=== PATIENT | male | born 1940 | race Caucasian/White ===

== ENCOUNTER → 2018-08-15 09:56 | Outpatient (CLI) | payer MEDICARE, OTHER, SELFPAY ==
--- NOTE | 2018-08-15 10:00 | RAD_ITS ---
STUDY: X-RAY - LEFT KNEE REASON FOR EXAM: Male, 78 years old. One-week history of left knee pain. No known injury. TECHNIQUE: 4 view(s) of the knee. COMPARISON: None. FINDINGS: Normal visualized distal femur. Normal visualized proximal tibia and fibula. Normal proximal tibiofibular articulation. There is mild degenerative arthrosis of the medial femorotibial compartment. Normal lateral femorotibial compartment. There is moderate degenerative arthrosis of the patellofemoral articulation. 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 Small joint effusion. RAD/Knee 4 or More Views IMPRESSION: Degenerative arthrosis. Small joint effusion. Calcification of the medial and lateral menisci. Electronically Signed: Willem Valles MD at 10:56 EDT Tel [phone], Service support ,
== END ==
PROVIDERS: Family Provider Family Medicine; PCP Family Medicine; Referring Provider Physician Assistant; Visit Provider Physician Assistant
DX: M17.12 Unilateral primary osteoarthritis, left knee (principal)
CPT/HCPCS: 73564

== ENCOUNTER → 2019-04-29 17:48 | Outpatient (CLI) | payer MEDICARE, OTHER, SELFPAY ==
--- NOTE | 2019-04-29 17:55 | CT_ITS ---
STUDY: CT ABDOMEN AND PELVIS WITH AND WITHOUT CONTRAST REASON FOR EXAM: Male, 78 years old. Enlarged testicle. RADIATION DOSAGE (If Supplied By Facility): CTDIvol = ( 25.99 ) mGy, DLP = ( 3465.52 ) mGycm TECHNIQUE: Transaxial images were obtained from the dome of the diaphragm to the symphysis pubis without oral contrast. 100ML IV Isovue 300 was administered. Sagittal and coronal images were reconstructed. Individualized dose optimization techniques were used for this CT. COMPARISON: None. FINDINGS: The visualized lung bases are unremarkable. The visualized portions of the heart are within normal limits. There is decreased attenuation of the liver consistent with steatosis. Normal gallbladder and extrahepatic biliary system. Normal spleen. Normal pancreas. Normal bilateral adrenal glands. Multiple bilateral nonobstructing renal stones. No hydronephrosis, ureteral stone, or ureteral dilatation. Normal visualized stomach. Normal small intestine. Normal colon. The appendix is visualized and appears normal. There is diffuse atherosclerotic calcification of the abdominal aorta, without a demonstrated aneurysm. Normal inferior vena cava. Normal retroperitoneum. Normal urinary bladder. Normal abdominal wall. There are diffuse degenerative changes of the visualized lumbar spine. CT/CT Abd/Pelvis W/WO Contrast IMPRESSION: 1. Bilateral nonobstructing renal stones. 2. Fatty infiltration of the liver. Electronically Signed: Evangelista De Los Santos MD at 10:18 EDT Tel , Service support ,
[2019-04-29 18:15] LABS: CREATININE FINGERSTICK 1.4 mg/dL (0.70-1.30)
== END ==
PROVIDERS: Family Provider Family Medicine; PCP Family Medicine; Referring Provider Nurse Practitioner Adult Health; Visit Provider Nurse Practitioner Adult Health
DX: R31.29 Other microscopic hematuria (principal); Z87.442 Personal history of urinary calculi
CPT/HCPCS: 74178; Q9967

== ENCOUNTER 2019-06-04 05:57 | Day surgery (SDC) | payer MEDICARE, OTHER, SELFPAY ==
--- NOTE | 2019-06-04 05:45 | RAD_ITS ---
STUDY: X-RAY - ABDOMEN/PELVIS REASON FOR EXAM: Male, 79 years old. Pre-ESWL TECHNIQUE: 2 views COMPARISON: CT study of April 29, 2019 FINDINGS: Multiple calculi projecting over the left kidney. The largest is 1.0 cm. No calcifications are seen projecting over the right kidney. There are degenerative changes involving the lower thoracic and lumbosacral spines. There is no bowel distention or free intraperitoneal. A few phleboliths in the pelvis.. RAD/Abdomen Single View IMPRESSION: Multiple calculi in the left kidney. Electronically Signed: Hema Reyes MD at 7:24 EDT Tel , Service support ,
[2019-06-04 07:00] VITALS: BP 150/71; PULSE 55; RESP 16; TEMP 37.2; O2SAT 97; BMI 28.3
--- NOTE | 2019-06-04 07:20 | DCINST_ITS ---
Discharge Diet: Light diet - advance as tolerated Discharge Activity: Return to Normal Activity Call your doctor if your incision/area has: Sudden Increased Bleeding Call your doctor if you observe: Fever of 101 or Higher Suture Line Care: Avoid Pulling/Pushing, Avoid Pinching/Bending Instructions: Shock Wave Lithotripsy Allergies/Adverse Reactions: Allergies No Known Allergies Allergy (Verified 05/23/19 08:31) Medications to take at Discharge Aspirin [Aspirin, Baby] 81 mg PO DAILY@0800 08/05/14 Multivitamins,Therapeutic [Multivitamin] 1 tab PO DAILY 08/05/14 Ciprofloxacin [Cipro] 500 mg PO BID #6 tab 06/04/19 Hydrocodone/Acetaminophen [[place] 5-325 Tablet] 1 ea PO Q6H PRN PRN #20 tab 06/04/19 The following prescriptions were given: Ciprofloxacin [Cipro] 500 mg PO BID #6 tab Prescription Printed Hydrocodone/Acetaminophen [[place] 5-325 Tablet] 1 ea PO Q6H PRN PRN #20 tab PRN Reason: Pain Prescription Printed Primary Care Physician: Luciano Jaimes MD [Primary Care Provider] - Test Results: Test results from this visit will be discussed in further detail at your follow- up appointment, if applicable. Please Follow Up With: Geovanny Wright MD When: please call to make an appointment.
[2019-06-04] MEDS: Cefazolin 2 GM in 0.9% Normal Saline 100 ML IV (07:24)
--- NOTE | 2019-06-04 08:21 | OP.PCM_ITS ---
Report of Operation Date of Procedure: 06/04/19 Pre-Operative Diagnosis: Left renal calculi multiple and large 1 cm and 8 mm Post-Operative Diagnosis: Same, stone was 1200 Hounsfield units Surgery/Procedure Performed:: Cystoscopy and left stent placement, left extracorporeal shockwave lithotripsy Description of Surgical Findings:: 74-year-old male who was found to have 2 large stones in the left kidney measuring 1 cm in size and 8 mm in size. Hematuria work-up confirmed the stones were plan to do a cystoscopy today and place a stent and treat these 2 large stones. Procedure note patient was taken back to the operating room #3, he underwent general anesthesia with an LMA. With Dr Rodriguez is anesthesiologist, he was placed supine on the table, we then placed him in dorsolithotomy position, went into the bladder with a 21 Sinhala rigid cystourethroscope, entire length of the urethra was normal, the membranous urethra was normal pendulous urethra is normal bulbar urethra is normal sphincter was intact prostate verumontanum was identified, he had bilateral hypertrophy, went into the bladder no tumors or stones were seen within the bladder. It left and right ureter orifice were normal ladders nice and smooth normal new mucosa. I then identified the left ureteral orifice and cannulated this with a Glidewire, it was a 0.038 Glidewire which advanced up into the left kidney. Once a wire was in place then under fluoroscopic guidance I advanced a 6 Sinhala by 26 cm stent this is a [employer] stent. Left the string on the stent for extraction later on. Once a stent was a good position I pulled the wire from the middle of the stent the stent coiled in the kidney and in the bladder in good position we left the string hanging out the urethra for easy extraction after the procedure next week. We then repositioned the table and the patient we found the 2 stones in the left kidney. We started with shockwave lithotripsy. Started slowly at a rate of 90 shocks per minute and observed and monitored there is shockwave with lithotripsy during the treatment. We increased the power from 3 kV to 5 and then finally at the 7 kV. We continued with shockwave therapy the stone started fracturing very nicely under fluoroscopy made sure that we are in the F2 focal point during the entire treatment made sure that we angled shockwave machine we did displace the patient laterally with a weight to push the kidney closer to the machine and continued with shockwave treatments. At the end of the treatment cycle we completed 3000 shockwaves to the stone and cause significant fragmentation of the stone. Under fluoroscopy could see multiple small fragments. Appeared to be a very good fragmentations always possible he may need another treatment. At this point the anesthesia was reversed he was extubated taken back to the PACU in good condition he will follow-up in the office next week with an x-ray and will remove the stent if the fragmentations cleared. Type of Anesthesia:: General Drains: stent - Admit VTE Documentation VTE Present on Admission: No VTE Mechan Device Prophylaxis: SCD's
[2019-06-04 08:30] VITALS: BP 150/71; BP 162/91; PULSE 46; RESP 17; TEMP 36.2; O2SAT 99
[2019-06-04 08:45] VITALS: BP 150/71; BP 153/84; PULSE 52; RESP 16; O2SAT 98
[2019-06-04 09:02] VITALS: BP 150/71; BP 156/83; PULSE 61; RESP 18; TEMP 36.5; O2SAT 99
[2019-06-04 10:01] VITALS: BP 150/71; BP 157/85; PULSE 82; RESP 16; TEMP 36.3; O2SAT 99
== END 2019-06-04 10:09 | disposition home or self-care (01) ==
LOC: SDC 05:58 → AC 06:00
PROVIDERS: Family Provider Family Medicine; PCP Family Medicine; Visit Provider Urology
PROC: (CPT 50590; principal; 2019-06-04 07:20)
DX: N20.0 Calculus of kidney (principal); Z79.82 Long term (current) use of aspirin; Z87.442 Personal history of urinary calculi
CPT/HCPCS: 00873; 50590; 52332; 74018; J7120; C1769; J2405

== ENCOUNTER → 2019-06-10 08:36 | Outpatient (CLI) | payer MEDICARE, OTHER, SELFPAY ==
[2019-06-04 07:00] VITALS: BMI 28.3
--- NOTE | 2019-06-10 08:45 | RAD_ITS ---
STUDY: X-RAY - ABDOMEN/PELVIS REASON FOR EXAM: Male, 79 years old. Flank pain, history of stones TECHNIQUE: 2 AP views COMPARISON: 06/04/2019 FINDINGS: Since the previous study, patient has undergone placement of a left-sided JJ stent. Stent appears in satisfactory position. I suspect also that the patient has undergone lithotripsy as the previously noted left renal stones have changed in shape and size consistent with that procedure. No clearly demonstrated calcifications are noted along the course of the stent. No calcifications overlying the right renal shadow, lucent centered phleboliths in the pelvis are unchanged. Bony structures show degenerative change. RAD/Abdomen Single View IMPRESSION: Previously noted calcifications in the mid and lower pole of the left kidney unchanged in size and shape consistent with recent lithotripsy. Left-sided JJ stent has been placed since the previous study and appears in satisfactory position No clearly demonstrated calcifications along the course of the stent Degenerative bony changes Electronically Signed: Ryder Delcid MD at 9:26 EDT , Service support ,
== END ==
PROVIDERS: Family Provider Family Medicine; PCP Family Medicine; Referring Provider Urology; Visit Provider Urology
DX: N20.0 Calculus of kidney (principal)
CPT/HCPCS: 74018

== ENCOUNTER 2019-06-27 12:26 | Day surgery (SDC) | payer MEDICARE, OTHER, SELFPAY ==
[2019-06-27 12:39] VITALS: BP 150/75; PULSE 59; RESP 16; TEMP 37.1; O2SAT 96; BMI 28.0
[2019-06-27] MEDS: Cefazolin 2 GM in 0.9% Normal Saline 100 ML IV (15:32)
[2019-06-27] MEDS: Lactated Ringers 1,000 ML 75 ML IV (15:35)
--- NOTE | 2019-06-27 15:36 | DCINST_ITS ---
Discharge Diet: Light diet - advance as tolerated Discharge Activity: Return to Normal Activity, May not drive while taking narcotic pain medications. Call your doctor if your incision/area has: Continuous Slow Oozing, Sudden Increased Bleeding Call your doctor if you observe: Fever of 101 or Higher Suture Line Care: Avoid Pulling/Pushing, Avoid Pinching/Bending Allergies/Adverse Reactions: Allergies No Known Allergies Allergy (Verified 06/27/19 12:36) Medications to take at Discharge NK 06/16/19 Primary Care Physician: Luciano Jaimes MD [Primary Care Provider] - Test Results: Test results from this visit will be discussed in further detail at your follow- up appointment, if applicable. Please Follow Up With: Geovanny Wright MD When: in 2 weeks, please call to make an appointment.
--- NOTE | 2019-06-27 16:23 | PCM.OPRPT ---
Report of Operation Date of Procedure: 06/27/19 Pre-Operative Diagnosis: Left kidney stone status post first stage ESWL Post-Operative Diagnosis: Same Surgery/Procedure Performed:: Left extracorporeal shockwave lithotripsy second stage treatment Description of Surgical Findings:: 79-year-old male taken back to the operating room after smooth induction of anesthesia he was placed supine on the lithotripsy table, the patient was then placed supine on the table we brought in the lithotripter machine and identified the fragments of stone in the left kidney and then proceeded with shockwave lithotripsy a total of 3000 shockwaves were delivered to the stones under fluoroscopic guidance taken to the F2 focal point was at the stones during the entire treatment. We used from 5 to 7 kV rate of 90. After the treatment cycle was completed fragmentation appeared successful and the patient anesthetic to being reversed plan to see him back in a few weeks with a KUB to evaluate the effectiveness of the treatment. Type of Anesthesia:: General - Admit VTE Documentation VTE Present on Admission: No VTE Mechan Device Prophylaxis: SCD's
[2019-06-27 16:32] VITALS: BP 148/75; BP 150/75; PULSE 55; RESP 14; TEMP 36.1; O2SAT 97
[2019-06-27 16:45] VITALS: BP 150/75; BP 169/80; PULSE 55; RESP 16; O2SAT 99
[2019-06-27 17:02] VITALS: BP 150/75; BP 165/81; PULSE 56; RESP 12; O2SAT 100
[2019-06-27 17:05] VITALS: BP 150/75; BP 165/87; PULSE 57; RESP 14; TEMP 36.2; O2SAT 97
[2019-06-27 18:04] VITALS: BP 150/75; BP 160/91; PULSE 65; RESP 18; TEMP 36.9; O2SAT 98
== END 2019-06-27 18:06 | disposition home or self-care (01) ==
LOC: SDC 12:27 → AC 12:29
PROVIDERS: Family Provider Family Medicine; PCP Family Medicine; Referring Provider Urology; Visit Provider Urology
PROC: (CPT 50590; principal; 2019-06-27 14:00)
DX: N20.0 Calculus of kidney (principal); Z87.442 Personal history of urinary calculi
CPT/HCPCS: 50590; J7120; J2405

== ENCOUNTER → 2019-07-17 08:25 | Outpatient (CLI) | payer MEDICARE, OTHER, SELFPAY ==
[2019-06-27 12:39] VITALS: BMI 28.0
--- NOTE | 2019-07-17 08:31 | RAD_ITS ---
STUDY: X-RAY - ABDOMEN/PELVIS REASON FOR EXAM: Male, 79 years old. Left kidney stones TECHNIQUE: Two AP supine views of the abdomen and pelvis. COMPARISON: Previous study of 06/10/2019 FINDINGS: Normal visualized lung bases. There is an unremarkable bowel gas pattern. There is no demonstrated free abdominal air. There is a 2 mm calcification overlying the lower pole left kidney which may represent nephrolithiasis. Bilateral pelvic phleboliths are noted. No additional abnormal intra-abdominal or intrapelvic calcifications are noted. There has been interval removal of a left ureteral stent. Normal soft tissue structures. There are degenerative changes of the visualized thoracolumbar spine. RAD/Abdomen Single View IMPRESSION: 2 mm calcification overlying the lower pole of left kidney which may represent nephrolithiasis. Bilateral pelvic phleboliths. Interval removal of left ureteral stent seen on the previous study. Degenerative changes of the visualized thoracolumbar spine. Electronically Signed: Adam George MD at 16:55 EDT , Service support ,
[2019-07-17 10:57] LABS: Creatinine, Serum 1.15 mg/dL (0.70-1.30); EST Glomerular Filtration Rate 66 mL/min (>60); Est Glom Filt Rate - Afr Amer 79 mL/min (>60)
== END ==
LOC: RAD.FUTURE 08:26 → RAD 09:16
PROVIDERS: Family Provider Family Medicine; PCP Family Medicine; Referring Provider Urology; Visit Provider Urology
DX: N20.0 Calculus of kidney (principal)
CPT/HCPCS: 36415; 74018; 82565

== ENCOUNTER → 2020-06-22 08:16 | Outpatient (CLI) | payer MEDICARE, OTHER, SELFPAY ==
[2020-06-17 08:47] VITALS: BMI 28.0
--- NOTE | 2020-06-22 08:16 | CT_ITS ---
STUDY: CT ABDOMEN AND PELVIS WITH CONTRAST REASON FOR EXAM: Male, 80 years old. UMBILICAL PAIN X 6 WEEKS, POSSIBLE HERNIA, HX [place] RADIATION DOSAGE (If Supplied By Facility): CTDIvol = ( 14.69 ) mGy, DLP = ( 1224.78 ) mGycm TECHNIQUE: Transaxial images were obtained from the dome of the diaphragm to the symphysis pubis with oral contrast. Oral and amp;amp; IV Readi-CAT and amp;amp; 100mL Isovue-300 was administered. Sagittal and coronal images were reconstructed. Individualized dose optimization techniques were used for this CT. COMPARISON: Comparison is made with prior study dated 04/29/2019 and 11/27/2011. FINDINGS: Stable small bullous changes at the lung bases. The visualized portions of the heart are within normal limits. Normal liver. Normal gallbladder and extrahepatic biliary system. Normal spleen. Normal pancreas. Normal bilateral adrenal glands. There are multiple bilateral nonobstructing tiny renal calculi. These are unchanged. Normal visualized stomach. Normal small intestine. Normal colon. The appendix is visualized and appears normal. There is diffuse atherosclerotic calcification of the abdominal aorta and the major visceral branches, without a demonstrated aneurysm. Normal inferior vena cava. Normal retroperitoneum. There is diffuse bladder wall thickening although the bladder is not adequately distended. Small bilateral inguinal hernias containing fat more prominent on the left side small umbilical hernia containing fat. There are diffuse degenerative changes of the visualized lumbar spine. CT/Abdomen/Pelvis WITH Contrast IMPRESSION: Stable multiple tiny nonobstructive bilateral intrarenal calculi. Bilateral inguinal hernias containing fat as well as a small umbilical hernia containing fat. Bladder wall thickening although the bladder is not adequately distended. Electronically Signed: Willem Valles, at 9:32 EDT , Service support ,
[2020-06-22 08:31] LABS: CREATININE FINGERSTICK 1.1 mg/dL (0.70-1.30); EGFR FINGERSTICK > 60.0000 mL/min (>60)
== END ==
PROVIDERS: PCP Family Medicine; Referring Provider Surgery; Visit Provider Surgery
DX: R19.00 Intra-abdominal and pelvic swelling, mass and lump, unspecified site (principal)
CPT/HCPCS: 74177; Q9967

== ENCOUNTER 2020-06-25 07:29 | Day surgery (SDC) | payer MEDICARE, OTHER, SELFPAY ==
[2020-06-17 08:47] VITALS: BMI 28.0
[2020-06-25] VITALS (7 sets, daily range): BP systolic 115–165; BP diastolic 62–85; PULSE 50–78; RESP 16; TEMP 36.7–37; O2SAT 97–99; BMI 25.9
--- NOTE | 2020-06-25 | COLBX_PTH ---
PATIENT: JOSÉ MIGUEL RUBIN LOC: EN U#:[id number] AGE/SX: 80/M ROOM: RE06/25/[address]: Dr. Jacques Uribe MD : 1940 BED: DIS: 06/25/2020 SPEC #: [id number] RECD: 06/25/20 09:49 STATUS: DEREK BEKA #: [id number] ALICIA: 06/25/20 00:[address]: Jacques Uribe DEPT: SURGICAL PATHOLOGY RECD BY: Ady Bennett ENTERED: 06/25/20 09:49 SP TYPE: COLON BX OTHR DR: Dr. 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 Fragments of tubular adenoma. See comment. AM:rajan 8/10/20 COMMENT Immunohistochemistry ([id number]) supports the above diagnosis. Case has been reviewed in consultation with Dr. Lazcano who concurs with the above diagnosis. IDC:SJ MICROSCOPIC DESCRIPTION Slides are reviewed. GROSS DESCRIPTION Received in fixative is one container labeled with the patient's name and designated transverse colon biopsy. The specimen consists of multiple irregular fragments of light schaefer soft tissue that in aggregate measure 1.3 x 0.5 x 0.1 cm. The specimen is totally submitted in one cassette. / AM:rg 06/25/20 TC:0 CPT: 87454
--- NOTE | 2020-06-25 07:39 | HP.PCM_ITS ---
Problem List (1) Colonic mass Status: Acute History and Physical Date of Admission: 06/25/20 Intake Vital Signs 06/17/20 Height 6 ft 2 in 06/17/20 Weight: 209 lb 06/17/20 BMI 26.8 06/17/20 BP 147/82 H 06/17/20 Blood Pressure Location Rt brachial 06/17/20 Position Sitting 06/17/20 Respiration 18 06/17/20 Pulse 60 06/17/20 Pulse Source Monitor 06/17/20 Temp 97.8 F 06/17/20 Temp Source Temporal 06/17/20 Pulse Oximetry (%) 98 06/17/20 Oxygen Delivery Method room air Intake Visit Reasons: Ventral hernia Chief Complaint: ventral hernia Handicapped Teacher Required: No Is patient in pain?: No Allergies No Known Allergies Allergy (Verified 06/17/20 08:46) Medications NK 06/16/19 [History Confirmed 06/17/20] PFSH Medical History Nephrolithiasis (Chronic) Abdominal pain (Acute) Ventral hernia (Acute) Surgical History (Updated 06/17/20 @ 08:45 by Brittny Banks) History of lithotripsy (Acute) History of tonsillectomy (Acute) h/o reverse total shoulder (Acute) history ORIF left ankle (Acute) Family History (Updated 06/17/20 @ 08:45 by Brittny Banks) Father Heart disease Colon cancer Social History (Updated 06/17/20 @ 14:[address] Jacques Uribe MD) Smoking Status: Never smoker HPI HPI HPI: JOSÉ MIGUEL RUBIN, is a 80 M who presents to the office today for HPI HPI HPI: JOSÉ MIGUEL RUBIN, is a 80 M who presents to the office today for Abdominal pain. Patient has had pain just above his umbilicus. The patient reports that he does feel bulging on exertion. He is not having any nausea or vomiting. He also reports that his last colonoscopy was approximately 5 years ago and he did have polyps. He has a family history of colon cancer in his father at age 40. ROS General General: Yes weight change; no appetite, fatigue, colon cancer, breast cancer or weakness HEENT HEENT: No difficulty swallowing, eye injury, eye surgery, swollen glands or hoarseness Endo Endocrine: No thyroid disease, diabetes mellitus, thyroid cancer, Hair loss, heat intolerance or cold intolerance Skin Skin: No rash or changing moles Breast Breast: No left breast lump, right breast lump, nipple discharge, breast pain, abnormal mammogram, abnormal US or breast enlargement Musc Musculoskeletal: No back problems, arthritis, rheumatoid arthritis, gout or joint pain Cardio Cardiovascular: No murmur, pacemaker, heart disease, atrial fibrillation, high blood pressure, heart attack, heart stent, palpitations, shortness of breat with exertion or chest pain Psych Psychiatric: Yes depression and anxiety; no hearing voices Resp Respiratory: No shortness of breath, No sleep apnea, No cough, No COPD, No asth ma, No emphysema, No wheezing Gastro Gastrointestinal: Yes abdominal pain, No nausea or vomiting, No diarrhea, No constipation, No blood in stool, No acid reflux, No hemorrhoids, No ulcers, No gallbladder problem, No black,tarry stools Home Hematologic: No blood thinners, No blood disorders, No bleeding, No anemia, No blood clots Neuro Neurologic: No system reviewed and no additional complaints, except as docu, No as per HPI, No abnormal walking, No abnormal hearing, No abnormal movements, No abnormal speech, No behavioral changes, No burning sensations, No confusion, No seizure-like activity, No unsteadiness, No dizziness, No localized weakness, No frequent falls, No headache(s), No lack of coordination, No loss of vision, No memory loss, No numbness, No other visual disturbances, No radiating pain, No restless legs, No sensory deficit, No fainting, No tingling, No tremor(s), No weakness, No other Exam Const General: cooperative Orientation: alert, oriented x3 HENMT Head: normal to inspection Ears: hearing grossly normal bilaterally Eyes General: appearance normal, both eyes and all related structures Visual Alvarado: normal visual alvarado by confrontation Neck Neck: normal visual inspection Chest Chest palpation & inspection: normal inspection of the chest Breast Palpation: No nipple discharge Resp Effort & Inspection: normal respiratory effort Auscultation: clear to auscultation bilaterally Cardio Rate: regular rate Rhythm: regular rhythm Heart Sounds: no murmurs GI Inspection: non-distended Palpation: soft, hernia umbilical, nontender Musc Cervical Spine: normal cervical lordosis, cervical ROM normal Skin General: no rashes or lesions noted Neuro General: alert, oriented x3 Cranial Nerves: CN's II-XI intact bilaterally Cognition: normal cognition Extrem General: normal to inspection, full ROM Psych Appearance: grossly normal Affect: normal affect Assessment & Plan Problems 1. Epigastric mass R19.06 2. Umbilical hernia without obstruction and without gangrene K42.9 Plan The patient does have an umbilical hernia just above his umbilicus. 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 Through his diastases I am able to palpate a firm mass which is mobile. I do not feel a ventral hernia other than his umbilical hernia. I would like to obtain a CT scan to ensure that there is no mass in his abdomen causing his discomfort and bulging. I will see him back after CAT scan to discuss hernia repair. Prior to hernia repair I would like to perform a colonoscopy. The patient is ov erdue as it was 5 or 6 years since his last colonoscopy and he had polyps and a history of colon cancer in his father at age 40. I explained endoscopy in detail to the patient. I explained the risks including but not limited to stroke or heart attack with anesthesia, perforation of the GI tract, bleeding, infection. I explained that any of these could necessitate further emergency surgery. The patient understands and all questions were answered sufficiently. The patient wishes to proceed with procedure. We discussed the current risks associated with COVID-19. While it is understood that there is a community spread of COVID-19, the risk of gabriel COVID-19 while at [facility] ([facility]) is very low; however, the risk cannot be completely mitigated because of the community spread of the disease. We discussed in detail the risk of exposure to and/or potential harm posed by the COVID-19 virus with having a surgery/procedure at this time versus the risk of delaying the surgery/procedure. It is not possible to know either the risk of delaying the surgery or procedure or chance of getting an infection with perfect accuracy, but a joint decision was made to proceed at this time with the scheduled surgery/procedure as indicated on the consent form. Patient was notified that we will need to comply with any screening or testing [facility] wishes to perform or that surgery may be delayed for any positive results. Jacques Uribe MD Pager: [facility] [address] [place] [address] [address] [place] [phone] Office: The patient's CT scan did reveal a possible transverse colon mass. I am performing a colonoscopy today and I will perform biopsies of this area. Patient was informed of the CT scan results. Otherwise there have been no changes since his last exam. Jacques Uribe MD Pager: [facility] [address] [place] [address], [address] [place] [address] Office:
--- NOTE | 2020-06-25 09:05 | OP.COLON_ITS ---
Patient Name: Ed Gandhi Procedure Date: 06/25/2020 8:38 AM Date of : 1940 Age: 80 Procedure: Colonoscopy Indications: Abnormal CT of the GI tract Providers: Jacques Uribe MD Referring MD: Luciano Jaimes MD Medicines: Monitored Anesthesia Care Patient Profile: This is a 80 year old male. Refer to note in patient chart for documentation of history and physical. Last Colonoscopy: 5 years ago. Complications: No immediate complications. Estimated blood loss: Minimal. Procedure: Pre-Anesthesia Assessment: - Prior to the procedure, a History and Physical was performed, and patient medications and allergies were reviewed. The patient's tolerance of previous anesthesia was also reviewed. The risks and benefits of the procedure and the sedation options and risks were discussed with the patient. All questions were answered, and informed consent was obtained. Prior Anticoagulants: The patient has taken no previous anticoagulant or antiplatelet agents. After reviewing the risks and benefits, the patient was deemed in satisfactory condition to undergo the procedure. After I obtained informed consent, the scope was passed under direct vision. Throughout the procedure, the patient's blood pressure, pulse, and oxygen saturations were monitored continuously. The Colonoscope was introduced through the anus and advanced to the cecum, identified by appendiceal orifice and ileocecal valve. The colonoscopy was performed without difficulty. The patient tolerated the procedure well. The quality of the bowel preparation was good. Scope In: 8:49:40 AM Scope Withdrawal Time 0 hours 6 minutes 19 seconds Scope Out: 8:59:53 AM Total Procedure Duration Time 0 hours 10 minutes 13 seconds Findings: A fungating non-obstructing large mass was found in the transverse colon. The mass was circumferential. No bleeding was present. This was biopsied with a cold forceps for histology. The exam was otherwise without abnormality on direct and retroflexion views. 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 Biopsied. - The examination was otherwise normal on direct and retroflexion views. Recommendation: - Discharge patient to home. - Resume previous diet. - Continue present medications. - Await pathology results. - Return to my office in 1 week. - Repeat colonoscopy is recommended. The colonoscopy date will be determined after pathology results from today's exam become available for review. Procedure Code(s): --- Professional --- 75106, Colonoscopy, flexible; with biopsy, single or multiple Diagnosis Code(s): --- Professional --- D49.0, Neoplasm of unspecified behavior of digestive system R93.3, Abnormal findings on diagnostic imaging of other parts of digestive tract CPT copyright 2017 [employer]. All rights reserved. The codes documented in this report are preliminary and upon cigar head puncher review may be revised to meet current compliance requirements. Jacques Uribe MD 06/25/2020 9:05:16 AM This report has been signed electronically. Number of Addenda: 0 Note Initiated On: 06/25/2020 8:38 AM
--- NOTE | 2020-06-25 09:06 | OP.CCLET_ITS ---
06/25/2020 Luciano Jaimes MD [address] [id number] Re : Colonoscopy procedure for Ed Gandhi Dear Dr. Jaimes This procedure was performed on Thursday, June 25, 2020. 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 Biopsied. - The examination was otherwise normal on direct and retroflexion views. Recommendations : - Discharge patient to home. - Resume previous diet. - Continue present medications. - Await pathology results. - Return to my office in 1 week. - Repeat colonoscopy is recommended. The colonoscopy date will be determined after pathology results from today's exam become available for review. My findings are described in the full procedure note, which is enclosed. If I can be of further assistance, please feel free to contact me at Doctor phone number(s): , Work: . Sincerely, Jacques Uribe MD 06/25/2020 9:05:16 AM This report has been signed electronically.
[2020-06-25] MEDS: Lactated Ringers 1,000 ML 100 ML IV (09:30)
[2020-06-25 10:19] LABS: ALB/GLOB Ratio 0.9 RATIO (0.9-2.4); AST(SGOT) 11 U/L (15-37); Alanine Aminotransfer ALT/SGPT 18 U/L (16-61); Alkaline Phosphatase 79 U/L (45-117); Anion Gap 6 (5-15); BUN 11 mg/dL (7-18); BUN/Creat Ratio 11.8 RATIO (10-20); Calcium,Total 8.5 mg/dL (8.5-10.1); Chloride 109 mmol/L (98-107); Creatinine, Serum 0.94 mg/dL (0.70-1.30); EST Glomerular Filtration Rate 83 mL/min (>60); Est Glom Filt Rate - Afr Amer 100 mL/min (>60); Globulin 3.5 g/dL (2.2-4.2); Glucose 114 mg/dL (74-106); Prealbumin 10.5 mg/dL (20.0-40.0); Protein, Total 6.5 g/dL (6.4-8.2); Sodium Level 140 mmol/L (136-145)
[2020-06-26 17:35] LABS: Carcinoembryonic Antigen 1.9 ng/mL (0.0-4.7)
--- NOTE | 2020-06-28 | IMM_PTH ---
PATIENT: JOSÉ MIGUEL RUBIN LOC: EN U#:[id number] AGE/SX: 80/M ROOM: RE06/25/[address]: Dr. Jacques Uribe MD : 1940 BED: DIS: 06/25/2020 SPEC #: [id number] RECD: 06/28/20 11:41 STATUS: DEREK REQ #: [id number] ALICIA: 06/28/20 00:[address]: Jacques Uribe DEPT: IMMUNOHISTOCHEMISTRY RECD BY: Nelia Muro ENTERED: 06/28/20 11:43 SP TYPE: IMMUNO OTHR DR: Dr. Luciano Jaimes MD Tissues: Transverse colon Procedures: MSH2 (add) MLH-1 (add) MSH6 (add) Anti-PMS2 (add) CK20 (add) ALEJO-2 (add) KI-67 (add) P53 (add) CDX2 (add) CK7 (initial) PHYSICIAN & INSTITUTION [place] [id number] SPECIMEN INFORMATION: Tissue Source: Transverse colon biopsy Clinical Info: Colonic mass Specimen Number: [id number] CPT code: 61285, 36221 x9 METHODOLOGY: Deparaffinized sections of prefer/formalin-fixed tissue or PAP/DQ stained slides are incubated with monoclonal/polyclonal antibodies/oligonucleotide probes. Localization is made via biotin free immunoperoxidase method. Appropriate controls are performed and reacted as expected. Results on target cell population are indicated in the following table: RESULTS: ANTIBODY / CLONE RESULT CK7 (OV-TL12/30) positive, focal CK20 (KS20.8) positive, focal CDX2 (PKY4746L) positive Ki-67 (30-9) positive P53 (DO-7) positive, 15% ALEJO-2 (SP21) positive MLH-1 (M1) positive MSH2 (25D12) positive MSH6 (44) positive PMS2 (QBZ9363) positive These tests were developed and their performance characteristics determined by [facility]. They may not have been cleared or approved by the U.S. Food and Drug Administration. The FDA has determined that such clearance or approval is not necessary. The above immunohistochemical/dualISH markers are ordered and reviewed by the Pathologist. INTERPRETATION: Transverse colon biopsy: Invasive moderate to poorly differentiated adenocarcinoma. Result of Microsatellite Instability Study: Negative (no loss of mismatch protein; no microsatellite instability detected). AM:rajan 06/29/20
== END 2020-06-25 10:18 | disposition home or self-care (01) ==
LOC: EN 07:29 → AC 07:30
PROVIDERS: Anesthesiology; PCP Family Medicine; Referring Provider Family Medicine; Visit Provider Surgery
PROC: 0DJD8ZZ Inspection of Lower Intestinal Tract, Via Natural or Artificial Opening Endoscopic (ICD-10-PCS; CPT 45378; principal; 2020-06-25 08:25)
DX: C18.4 Malignant neoplasm of transverse colon (principal); Z87.19 Personal history of other diseases of the digestive system; Z80.0 Family history of malignant neoplasm of digestive organs; K42.9 Umbilical hernia without obstruction or gangrene; Z11.59 Encounter for screening for other viral diseases
CPT/HCPCS: 45380; 36415; 80053; 82378; 84134; 87635; 88305; 88341; 88342; 94799; J7120; U0003

== ENCOUNTER 2020-07-14 05:33 | Inpatient (IN) | payer MEDICARE, OTHER, SELFPAY ==
--- NOTE | 2020-07-02 01:59 | HP_ITS ---
Intake Vital Signs 07/02/20 Height 6 ft 2 in 07/02/20 Weight: 204 lb 07/02/20 BMI 26.2 07/02/20 BP 159/70 H 07/02/20 Blood Pressure Location Rt brachial 07/02/20 Position Sitting 07/02/20 Respiration 16 07/02/20 Pulse 63 07/02/20 Pulse Source Monitor 07/02/20 Temp 98.2 F 07/02/20 Temp Source Temporal 07/02/20 Pulse Oximetry (%) 99 07/02/20 Oxygen Delivery Method room air 07/02/20 BMI 25.9 Intake Visit Reasons: ONE WEEK F/U CSCOPE 06/25 Chief Complaint: cscope f/u Lead Die Molder Required: No Is patient in pain?: No Allergies No Known Allergies Allergy (Verified 07/02/20 13:00) Medications NK 06/16/19 [History Confirmed 07/02/20] PFSH Medical History Nephrolithiasis (Chronic) Abdominal pain (Acute) Ventral hernia (Acute) Surgical History History of lithotripsy (Acute) History of tonsillectomy (Acute) h/o reverse total shoulder (Acute) history ORIF left ankle (Acute) Family History Father Heart disease Colon cancer Social History (Updated 07/02/20 @ 13:[address] Jacques Uribe MD) Smoking Status: Never smoker HPI HPI HPI: JOSÉ MIGUEL RUBIN, is a 80 M who presents to the office today for HPI HPI Surgical H&P: Yes HPI: JOSÉ MIGUEL RUBIN, is a 80 M who presents to the office today for discussion of his transverse colon cancer. The patient was found to have a colon cancer in the transverse colon on endoscopy last week. Pathology confirmed this. Patient reports that he has been tolerating regular diet and taking boost. ROS General General: Yes weight change; no appetite, fatigue, colon cancer, breast cancer or weakness HEENT HEENT: No difficulty swallowing, eye injury, eye surgery, swollen glands or hoarseness Endo Endocrine: No thyroid disease, diabetes mellitus, thyroid cancer, Hair loss, heat intolerance or cold intolerance Skin Skin: No rash or changing moles Breast Breast: No left breast lump, right breast lump, nipple discharge, breast pain, abnormal mammogram, abnormal US or breast enlargement Musc Musculoskeletal: No back problems, arthritis, rheumatoid arthritis, gout or joint pain Cardio Cardiovascular: No murmur, pacemaker, heart disease, atrial fibrillation, high blood pressure, heart attack, heart stent, palpitations, shortness of breat with exertion or chest pain Psych Psychiatric: Yes depression and anxiety; no hearing voices Resp Respiratory: No shortness of breath, No sleep apnea, No cough, No COPD, No asthma, No emphysema, No wheezing Gastro Gastrointestinal: Yes abdominal pain, No nausea or vomiting, No diarrhea, No constipation, No blood in stool, No acid reflux, No hemorrhoids, No ulcers, No gallbladder problem, No black,tarry stools Home Hematologic: No blood thinners, No blood disorders, No bleeding, No anemia, No blood clots Neuro Neurologic: No weakness Exam Const General: cooperative Orientation: alert, oriented x3 HENMT Head: normal to inspection Ears: hearing grossly normal bilaterally Eyes General: appearance normal, both eyes and all related structures Visual Alvarado: normal visual alvarado by confrontation Neck Neck: normal visual inspection Chest Chest palpation & inspection: normal inspection of the chest Breast Palpation: No nipple discharge Resp Effort & Inspection: normal respiratory effort Auscultation: clear to auscultation bilaterally Cardio Rate: regular rate Rhythm: regular rhythm Heart Sounds: no murmurs GI Inspection: non-distended Palpation: soft, mass (Upper abdomen), nontender Musc Cervical Spine: normal cervical lordosis, cervical ROM normal Skin General: no rashes or lesions noted Neuro General: alert, oriented x3 Cranial Nerves: CN's II-XI intact bilaterally Cognition: normal cognition Extrem General: normal to inspection, full ROM Psych Appearance: grossly normal Affect: normal affect Assessment & Plan Problems 1. 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 He had a colonoscopy last week which showed a nonobstructive mass in the transverse colon and biopsies confirmed adenocarcinoma. Patient had CEA which was normal. I ordered prealbumin and albumin levels which were both low. I encouraged the patient to take boost as well as increase his diet to increase his nutritional status prior to surgery. I will schedule the patient for a laparoscopic assisted transverse colectomy. I discussed the patient's colectomy with him in detail. I discussed the risks including modalities to bleeding, infection, injury to other organs, anastomotic leak. The patient understands the risks and is willing to proceed with transverse colectomy. All the questions were answered and I will schedule the patient for surgery and continue to encourage increased nutritional intake to optimize him for surgery. We discussed the current risks associated with COVID-19. While it is understood that there is a community spread of COVID-19, the risk of gabriel COVID-19 while at [facility] ([facility]) is very low; however, the risk cannot be completely mitigated because of the community spread of the disease. We discussed in detail the risk of exposure to and/or potential harm posed by the COVID-19 virus with having a surgery/procedure at this time versus the risk of delaying the surgery/procedure. It is not possible to know either the risk of delaying the surgery or procedure or chance of getting an infection with perfect accuracy, but a joint decision was made to proceed at this time with the scheduled surgery/procedure as indicated on the consent form. Patient was notified that we will need to comply with any screening or testing [facility] wishes to perform or that surgery may be delayed for any positive results. Jacques Uribe MD Pager: 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 There are no clinical changes since date of exam.
[2020-07-02 13:08] VITALS: BMI 26.2
--- NOTE | 2020-07-07 09:45 | EKG12_ITS ---
Test Reason : PRE OP Blood Pressure : / mmHG Vent. Rate : 078 BPM Atrial Rate : 078 BPM P-R Int : 162 ms QRS Dur : 070 ms QT Int : 364 ms P-R-T Axes : 043 -23 042 degrees QTc Int : 414 ms Normal sinus rhythm Inferior infarct , age undetermined Abnormal ECG Confirmed by DORIAN SCOTT ([id number]), material expeditor REUBEN HOLMAN ([id number]) on 07/12/2020 9:44:59 AM Referred By: Jacques Uribe Confirmed By:DORIAN SCOTT
[2020-07-14] VITALS (11 sets, daily range): BP systolic 109–161; BP diastolic 56–83; PULSE 51–76; RESP 16–18; TEMP 36.2–37.6; O2SAT 96–100; BMI 26.6
[2020-07-14 06:11] LABS: Bedside Glucose 107 mg/dL (70-110)
[2020-07-14] MEDS: Acetaminophen 500 MG Tablet 1000 MG PO ×2 (06:13→17:45)
[2020-07-14] MEDS: Gabapentin 600 MG Tablet PO (06:14)
[2020-07-14] MEDS: Lactated Ringers 1,000 ML 40 ML IV (06:15)
[2020-07-14 06:21] LABS: Magnesium 2.3 mg/dL (1.6-2.6)
[2020-07-14] MEDS: Lactated Ringers 1,000 ML 100 ML IV ×4 (07:30→14:14)
--- NOTE | 2020-07-14 07:30 | COL._PTH ---
PATIENT: JOSÉ MIGUEL RUBIN LOC: MS3 U#:[id number] AGE/SX: 80/M ROOM: MS314 RE07/14/[address]: Dr. Jacques Uribe MD : 1940 BED: 1 DIS: 07/16/2020 SPEC #: [id number] RECD: 07/14/20 09:37 STATUS: DEREK REMicky #: [id number] ALICIA: 07/14/20 07:[address]: Jacques Uribe DEPT: SURGICAL PATHOLOGY RECD BY: Chilo Andrade ENTERED: 07/14/20 10:22 SP TYPE: COLON OTHR DR: Dr. Luciano Jaimes MD Tissues: Colon, NOS Procedures: Surgery Specimen Level HEADER OPERATION: ERAS, laparoscopic transverse colectomy PRE-OP DIAGNOSIS: Transverse colon cancer TISSUE SUBMITTED: Transverse colon with small bowel and en bloc with suture marking distal transverse colon MICROSCOPIC DIAGNOSIS Transverse colon, segmental colectomy: Invasive adenocarcinoma with mucinous differentiation. See cancer checklist below. AM:rajan 07/16/20 COMMENT COLON CANCER SUMMARY Procedure: Transverse colon colectomy Tumor site: Transverse colon Tumor size: 9 x 8 x 2 cm Histologic type: Adenocarcinoma Histologic grade: G3 (moderate to poorly differentiated with mucinous differentiation) Tumor extension: Tumor invades through muscularis propria and to visceral serosal surface. Margins: All margins are uninvolved by invasive carcinoma, high grade dysplasia, carcinoma in situ and adenoma. Margins examined: Proximal, distal and serosal Treatment effect: Unknown Lymphvascular invasion: Not identified Perineural invasion: Not identified Tumor deposits: Not identified Regional lymph nodes: 18 out 18 lymph nodes negative for metastatic carcinoma. Ancillary studies: See microsatellite instability study by IHC ([id number]) for complete details. Negative (no loss of mismatch protein; no microsatellite instability detected). Additional pathologic findings: Serosal fibrosis. PATHOLOGIC STAGE: T3 N0 Mx The above summary is in compliance with [employer] [place] [employer] (CAP) Cancer Protocols Checklist and [place] Joint Committee on Cancer (AJCC), Staging Manual, 8th Ed. The invasive carcinoma extends through the muscularis propria of large bowel and is focally present at the visceral serosal surface. The small bowel is free of carcinoma. The omentum is free of carcinoma. Reference is made to the patient's previous transverse colon mass, biopsy ([id number]) in which invasive moderately to poorly differentiated (G3) adenocarcinoma was identified. MICROSCOPIC DESCRIPTION Slides are reviewed. GROSS DESCRIPTION Received in fixative is one container labeled with the patient's name and designated transverse colon with small bowel en bloc. The specimen consists of a segment of colon with attached pericolonic adipose tissue and omentum and adherent segment of small intestine. The segment of colon measures 16 cm in length. A segment of small intestine measures 11 cm in length. The mesentery is adherent to serosal surface of the colon in the area measuring 2 cm in greatest dimension. A focal area of serosal surface shows ragged area. The serosal surface in this area and adherent portion of the mesentery is inked black. Both resection margins for small intestine and colon are stapled. The omentum measures 41 x 17 x 2 cm. A suture is present at one of the resection margins of the colon identifying as distal resection. The colon shows a circumferential ulcerated tumor mass measuring 9 x 8 x 2 cm. This mass involves full thickness of the bowel wall also extending into the serosal surface. A small amount of hemorrhagic material is noted in the lumen. Sections of the small bowel do not reveal any mucosal lesion and it contains a small amount of reddish fluid. The pericolonic tissue is placed in lymph node revealing solution. Sections of the omentum do not reveal any mass lesion. More dictation will follow after overnight fixation. / WEN:rajan 07/14/20 Sections of pericolonic adipose tissue reveal multiple lymph nodes. The largest lymph node measures 1?cm in greatest dimension. Continuity Editor sections are submitted as follows: 1 - proximal resection margin, 2 - distal resection margin, 3-5 - tumor with inked serosal margin, 6 & 7 - more sections of tumor,?8-10 - tumor with adherent mesenteric tissue, 11 - merchandiser retail representative section uninvolved large intestine, 12??merchandiser retail representative section uninvolved small intestine, 13 - omentum, 14-18 - multiple lymph nodes, 19 - focal indurated area in the pericolonic adipose tissue. / WEN:rajan 07/15/20 TC:0 CPT: 77294
[2020-07-14] MEDS: BUPIVACAINE LIPOSOME/PF 20 ML VIAL OPERA.SITE (07:55)
[2020-07-14] MEDS: Lidocaine/D5W 2,000 MG/250 ML IV.SOLN 22.5 MG IV (09:26)
--- NOTE | 2020-07-14 11:22 | PCM.OPRPT ---
Problem List (1) Colon cancer Status: Acute Qualifiers: Colon location: transverse Qualified Code(s): C18.4 - Malignant neoplasm of transverse colon Report of Operation Date of Procedure: 07/14/20 Pre-Operative Diagnosis: Transverse colon cancer Post-Operative Diagnosis: Same Surgery/Procedure Performed:: 1. Laparoscopic transverse colectomy with primary anastomosis. 2. Sigmoid flexure release. 3. En bloc small bowel resection with primary anastomosis Specimen's removed: Transverse colon with en bloc small bowel segment Description of Procedure: Patient was brought back to the operating room and general anesthesia was used. A Wilcox catheter was placed and clear urine was returned. The abdomen was prepped and draped in usual sterile fashion. Incision was made superior to the umbilicus and deepened to the fascia. The fascia was elevated and incised and a 12 mm port was placed into the abdomen and the abdomen was insufflated 15 mmHg. The abdomen was inspected and there was a large mass in the transverse colon. The patient was placed in reverse Trendelenburg position and under laparoscopic supervision, a tap block was performed bilaterally using an Exparel and saline mixture. Under direct visualization a 5 mm port was placed each in the right lateral and left lateral abdomen. The colon was grasped and using Enseal the splenic flexure was taken down laparoscopically. The hepatic flexure was then taken down in the same fashion. An incision was then made in the upper midline and the port was removed and the midline fascia was incised. A wound protector was placed into the abdomen. The mass was delivered through the incision and there appeared to be growth into a loop of small bowel. Decision was made to take the small bowel loop en bloc. DREW stapler was used to divide the small bowel before and after the area of concern. Enseal was used to take the small bowel mesentery. Next the lesser sac was entered superior to the transverse colon and this was taken laterally on both sides. The proximal transverse colon was divided using a DREW stapler and the distal transverse colon was taken in the same fashion. Next using the Enseal the mesentery was taken down to the base of the vessels. The vessels were identified and clamped and suture-ligated using 0 silk suture. There was good hemostasis. The mass was delivered and marked with a suture at the distal staple line. The mesentery was checked for hemostasis and there was good hemostasis. Next a 25 EEA stapler was selected. The distal colon staple line was removed sharply and the anvil was placed into the distal transverse colon and an 0 Prolene suture pursestring was placed. Next tenia of the proximal transverse colon was selected and incised. The 25 EEA stapler was placed through this tenia into the distal staple line and the point was extended from the stapler. The anvil was attached to this and it was retracted and the stapler was tightened. The stapler was then fired. The anvil was removed along with a stapler and the donuts. The area of the tenia that was used for the enterotomy was closed with a running 3-0 chromic suture as well as interrupted 3-0 silk sutures. Both of these areas were inspected and there appeared to be a good lumen at the anastomosis with no stricture and there was no stricturing where the tenia was located. Interrupted 3-0 silk sutures were also placed around the anastomosis of the colon. This was inspected and irrigated and suctioned. Next the 2 ends of the small bowel were elevated and a small corner of the staple line was taken off and a DREW stapler was placed into the proximal and distal small bowel. The segments of bowel were approximated in an antimesenteric to antimesenteric fashion and the stapler was used to make an anastomosis. The stapler was removed and the staple line was inspected and was hemostatic. Next using [place]cocks the enterotomy was grasped and a 60 TX stapler was placed across the enterotomy to close the enterotomy. This was inspected and there were a few areas of bleeding which were stopped with interrupted 3-0 silk suture. Next a crotch stitch was placed with 3-0 silk suture. The mesentery of this area was then reapproximated using a running 3-0 Vicryl suture. This was returned into the abdomen and the abdomen was irrigated and suctioned dry. Next the wound protector was removed and the staff changed gown and gloves and new towels were placed over the incisions. Next the fascia was closed from the top and bottom using #1 PDS suture in a running fashion meeting in the middle. The skin was anesthetized using the Exparel and saline mixture. The subcutaneous tissue was irrigated and suctioned dry. The skin was stapled closed. The port sites were anesthetized and closed with interrupted 4-0 Monocryl sutures as well as Steri-Strips. The bandage was then applied and the patient was awoken and taken to PACU in stable condition with Wilcox in place. - Admit VTE Documentation VTE Mechan Device Prophylaxis: SCD's
[2020-07-15] MEDS: Acetaminophen 500 MG Tablet 1000 MG PO ×4 (00:10→18:37)
[2020-07-15] MEDS: Lactated Ringers 1,000 ML 100 ML IV (00:18)
[2020-07-15 02:26] VITALS: BP 134/54; PULSE 55; RESP 16; TEMP 36.6; O2SAT 98
[2020-07-15 07:14] LABS: Absolute Lymphocyte Count 0.69 X10^3/uL (0.83-4.51); Absolute Neutrophil Count 6.3 X10^3/uL (2.0-7.7); Basophil# 0.01 X10^3/uL; Basophil% 0.1 % (0-1); Hematocrit 27.2 % (40-54); Hemoglobin 8.1 g/dL (13.0-16.5); Lymphocyte # 0.69 X10^3/ul (4.0); Lymphocyte % 8.6 % (19-41); Mean Corp Hgb Conc 29.8 g/dL (32-36); Mean Corpuscular Hgb 22.1 pg (27.0-32.0); Mean Corpuscular Volume 74.3 fL (80-94); Monocyte# 0.96 X10^3/uL; Monocyte% 11.9 % (0-10); NRBC Flagged by Analyzer 0 % (0-5); Neutrophil # 6.32 X10^3/uL (2.7-7.7); Neutrophil % 78.7 % (47-70); Platelet Count 327 K/mm3 (150-450); RBC Distribution Width SD 47.5 fl (35.1-43.9); Red Blood Count 3.66 M/mm3 (4.6-6.2)
[2020-07-15 07:29] LABS: Anion Gap 4 (5-15); BUN 18 mg/dL (7-18); BUN/Creat Ratio 18.5 RATIO (10-20); Calcium,Total 7.8 mg/dL (8.5-10.1); Chloride 108 mmol/L (98-107); Creatinine, Serum 0.98 mg/dL (0.70-1.30); EST Glomerular Filtration Rate 79 mL/min (>60); Est Glom Filt Rate - Afr Amer 96 mL/min (>60); Estimated Creatinine Clearance 72.23 ml/min; Glucose 127 mg/dL (74-106); Potassium 4.1 mmol/L (3.5-5.1); Sodium Level 138 mmol/L (136-145)
--- NOTE | 2020-07-15 07:51 | PCM.PN.SRG ---
Patient Problems: Active and Suspected Problems (Last Reviewed 07/02/20 @ 12:59 by Lainey García) Colon cancer (Acute) Subjective: The patient reports he is doing well. His pain is a 1 out of 10. He is well-controlled Tylenol. No nausea or vomiting. No flatus yet. - Physical Exam Vitals/I&O's: Vital Signs Temp Pulse Resp BP Pulse Ox 98 F 55 L 16 134/54 H 98 07/15/20 02:26 07/15/20 02:26 07/15/20 02:26 07/15/20 02:07/15/20 02:26 Oxygen Flow Rate (L/min) 6 Oxygen Delivery Method Room Air Weight: 207 lb 14.334 oz Body Mass Index (BMI) 26.6 Intake and Output for Last 24 Hours 07/13/20 07/14/20 07/15/20 23:59 23:59 23:59 Intake Total 4010.55 / 4010.55 1446.66 / 1446.66 Output Total 345 / 345 1000 / 1000 Balance 3665.55 / 3665.55 446.66 / 446.66 General: Alert, Oriented x3 Lungs: Normal air movement Cardiovascular: Regular rate, Regular Rhythm Abdomen: Soft, Non Tender, Non-Distended Laboratory Results 07/15/20 07:00: WBC 8.0, RBC 3.66 L, Hgb 8.1 L, Hct 27.2 L, MCV 74.3 L, MCH 22.1 L, MCHC 29.8 L, RDW Std Deviation 47.5 H, RDW Coeff of Carolyn 18.0 H, Plt Count 327, MPV 9.0, Immature Gran % (Auto) 0.700, Neut % (Auto) 78.7 H, Lymph % (Auto) 8.6 L, [place] % (Auto) 11.9 H, Eos % (Auto) 0.0, Baso % (Auto) 0.1, Absolute Neuts (auto) 6.3, Absolute Lymphs (auto) 0.69 L, Nucleated RBC % 0 07/15/20 07:00: Sodium 138, Potassium 4.1, Chloride 108 H, Carbon Dioxide 26.0, Anion Gap 4 L, BUN 18, Creatinine 0.98, Estim Creat Clear Calc 72.23, Est GFR (MDRD) Af Amer 96, Est GFR (MDRD) Non-Af 79, BUN/Creatinine Ratio 18.5, Glucose 127 H, Calcium 7.8 L Current Medications Acetaminophen (Tylenol) 1,000 mg PO Q6 [facility] Last Admin: 07/15/20 06:05 Dose: 1,000 mg Documented by: Enoxaparin Sodium (Lovenox) 40 mg SC DAILY YUNIER Lactated Ringer's () 1,000 mls @ 40 mls/hr IV .Q25H YUNIER Last Infusion: 07/15/20 07:35 Dose: 40 mls/hr Documented by: Ketorolac Tromethamine (Toradol (Bkc)) 15 mg IV Q6H PRN PRN PRN Reason: Pain Score 4-10/10 Magnesium Oxide (Mag-Ox 400) 400 mg PO DAILY PRN PRN PRN Reason: Constipation Ondansetron HCl (Zofran Odt) 4 mg PO Q6H PRN PRN PRN Reason: NAUSEA Sodium Chloride () 10 - 40 ml IV UD PRN PRN Reason: SALINE FLUSH Medical Necessity - Tobacco Use Smoking Status: Never smoker Tobacco Use: Non-smoker Assessment/Plan All Active Problems (Last Reviewed 07/02/20 @ 12:59 by Lainey García) Colon cancer (Acute) Colonic mass (Acute) 80-year-old male status post small bowel resection and transverse colon resection 1. Patient seems to be doing well this morning. DC Wilcox and decrease IV fluids. Await flatus for starting a diet. Pain is well controlled. Jacques Uribe MD Pager: [facility] [address] [place] [address], [address] [place] [address] Office:
[2020-07-15 08:00] VITALS: BP 136/60; PULSE 56; RESP 16; TEMP 36.7; O2SAT 100
[2020-07-15] MEDS: Enoxaparin 40 MG/0.4 ML Syringe SC (09:24)
--- NOTE | 2020-07-15 11:05 | CASEMGMT ---
RN CM Face to Face with patient for initial transition planning/care coordination assessment. RN CM introduced self and role at [facility]. Patient lying in bed, alert and oriented. Patient willing to participate in assessment and is able to answer all questions appropriately. Care providers, pharmacy, and demographics verified. Patient wishes to discharge home, denies need for home health at this time. Patient states he has no further needs or concerns at this time. CM to follow for discharge planning needs that may arise. PCP: Finoa Specialists: Adriana, urology; Jojo, Surgeon Preferred Pharmacy: [facility] Insurance: [email or web address] Prescription Benefit: yes Living Will/HPOA: yes, daughter Ruth Ramirez LNOK: daughters, son Living Arrangements: Patient lives alone in a 1 story home with 2 steps to enter the home. Patient independent at home prior to surgery. Patient states daughter will be staying with patient for a few days. Transportation: self/daughter DME/HHC: Patient states he has shower chair, raised toilet, grab bars, and walker at home. Patient denies previous HHC. Disposition Plan: Patient to discharge home with family support and follow-up plans in place. Valarie ENCARNACION, RN, CM
[2020-07-15] MEDS: Lactated Ringers 1,000 ML 40 ML IV (12:10)
[2020-07-15 14:35] VITALS: BP 158/71; PULSE 57; RESP 18; TEMP 36.6; O2SAT 99
[2020-07-15 20:35] VITALS: BP 146/71; PULSE 62; RESP 16; TEMP 36.6; O2SAT 97
[2020-07-16] MEDS: Acetaminophen 500 MG Tablet 1000 MG PO ×3 (00:45→13:21)
[2020-07-16 02:35] VITALS: BP 147/69; PULSE 60; RESP 16; TEMP 36.6; O2SAT 96
[2020-07-16 07:20] VITALS: O2SAT 95
[2020-07-16] MEDS: Enoxaparin 40 MG/0.4 ML Syringe SC (07:52)
[2020-07-16 07:55] VITALS: BP 163/79; PULSE 69; RESP 18; TEMP 36.6; O2SAT 99
[2020-07-16] MEDS: amLODIPine 5 MG Tablet PO (09:48)
--- NOTE | 2020-07-16 11:04 | PCM.PN.SRG ---
Patient Problems: Active and Suspected Problems (Last Reviewed 07/02/20 @ 12:59 by Lainey García) Colon cancer (Acute) Subjective: Patient had bowel movements and is not having any nausea or vomiting. He is passing flatus - Physical Exam Vitals/I&O's: Vital Signs Temp Pulse Resp BP Pulse Ox 97.8 F 69 18 163/79 H 99 07/16/20 07:55 07/16/20 07:55 07/16/20 07:55 07/16/20 07:55 07/16/20 07:55 Oxygen Flow Rate (L/min) 6 Oxygen Delivery Method Room Air Weight: 207 lb 14.334 oz Body Mass Index (BMI) 26.6 Intake and Output for Last 24 Hours 07/14/20 07/15/20 07/16/20 23:59 23:59 23:59 Intake Total 4010.55 / 4010.55 1829.99 / 1929.99 882.67 / 882.67 Output Total 345 / 345 2375 / 2375 575 / 575 Balance 3665.55 / 3665.55 -545.01 / -445.01 307.67 / 307.67 General: Alert, Oriented x3 Abdomen: Soft, Non Tender, Non-Distended Current Medications Acetaminophen (Tylenol) 1,000 mg PO Q6 [facility] Last Admin: 07/16/20 07:51 Dose: 1,000 mg Documented by: Amlodipine Besylate (Norvasc) 5 mg PO DAILY [facility] Last Admin: 07/16/20 09:48 Dose: 5 mg Documented by: Enoxaparin Sodium (Lovenox) 40 mg SC DAILY [facility] Last Admin: 07/16/20 07:52 Dose: 40 mg Documented by: Ketorolac Tromethamine (Toradol (Bkc)) 15 mg IV Q6H PRN PRN PRN Reason: Pain Score 4-10/10 Magnesium Oxide (Mag-Ox 400) 400 mg PO DAILY PRN PRN PRN Reason: Constipation Ondansetron HCl (Zofran Odt) 4 mg PO Q6H PRN PRN PRN Reason: NAUSEA Sodium Chloride () 10 - 40 ml IV UD PRN PRN Reason: SALINE FLUSH Medical Necessity - Tobacco Use Smoking Status: Never smoker Tobacco Use: Non-smoker Assessment/Plan All Active Problems (Last Reviewed 07/02/20 @ 12:59 by Lainey García) Colon cancer (Acute) Colonic mass (Acute) 80-year-old male status post transverse colectomy and small bowel resection 1. Patient is doing very well today. He is having bowel movements and passing flatus with no nausea or vomiting and abdominal pain is 1 out of 10. I will start him on clear liquids and advance to transitional diet. Once he is tolerating transitional diet he will be discharged home. Jacques Uribe MD Pager: [facility] [address] [place] [address], [address] [place] [address] Office:
--- NOTE | 2020-07-16 13:21 | DCINST_ITS ---
Discharge Diet: No Restrictions Discharge Activity: Return to Normal Activity, May Shower Lifting Restrictions: 20 lbs for 4 weeks Call your doctor if your incision/area has: Continuous Slow Oozing, Sudden Increased Bleeding, Increased Pain/ Swelling, Increased Redness, Foul Smelling Discharge, Swelling at the incision site Call your doctor if you observe: Fever of 101 or Higher Allergies/Adverse Reactions: Allergies No Known Allergies Allergy (Verified 07/14/20 05:45) Medications to take at Discharge NK 06/16/19 Test Results: Test results from this visit will be discussed in further detail at your follow- up appointment, if applicable. Please Follow Up With: Jacques Uribe MD When: Please call to schedule 2 week follow up appointment. [phone]
--- NOTE | 2020-07-16 13:22 | DS.PCM_ITS ---
Discharge Date and Diagnosis - Problem List Patient Problems: Active and Suspected Problems (Last Reviewed 07/02/20 @ 12:59 by Lainey García) Colon cancer (Acute) Date of Admission: 07/14/20 Date of Discharge: 07/16/20 - Primary Discharge Diagnosis Acute Problems: Active Problems (Last Reviewed 07/02/20 @ 12:59 by Lainey García) Colon cancer (Acute) - Secondary Discharge Diagnosis Chronic Problems: Chronic Problems (Last Reviewed 07/02/20 @ 12:59 by Lainey García) Nephrolithiasis (Chronic) Hospital Course and Treatment Operations: colectomy Procedures: None Summary of Care Provided: The patient is a 80 year old M presented for elective transverse colectomy and w as found to have growth into small bowel and en bloc small bowel resection was performed. Patient tolerated the procedure very well and the second postoperative day he was passing flatus and bowel movements and was started on clear liquid diet and advance as tolerated. Once he is tolerating a regular diet he was discharged home in stable condition. Patient Problems: Active and Suspected Problems (Last Reviewed 07/02/20 @ 12:59 by Lainey García) Colon cancer (Acute) - Physical Exam Vitals/I&O's: Vital Signs Temp Pulse Resp BP Pulse Ox 97.8 F 69 18 163/79 H 99 07/16/20 07:55 07/16/20 07:55 07/16/20 07:55 07/16/20 07:55 07/16/20 07:55 Oxygen Flow Rate (L/min) 6 Oxygen Delivery Method Room Air Weight: 207 lb 14.334 oz Body Mass Index (BMI) 26.6 Intake and Output for Last 24 Hours 07/14/20 07/15/20 07/16/20 23:59 23:59 23:59 Intake Total 4010.55 / 4010.55 1829.99 / 1929.99 1122.67 / 1122.67 Output Total 345 / 345 2375 / 2375 575 / 575 Balance 3665.55 / 3665.55 -545.01 / -445.01 547.67 / 547.67 General: Alert, Oriented x3 HEENT: Atraumatic Neck: No JVD Lungs: Normal air movement Abdomen: Soft, Non Tender, Non-Distended Current Medications Acetaminophen (Tylenol) 1,000 mg PO Q6 [facility] Last Admin: 07/16/20 13:21 Dose: 1,000 mg Documented by: Amlodipine Besylate (Norvasc) 5 mg PO DAILY [facility] Last Admin: 07/16/20 09:48 Dose: 5 mg Documented by: Enoxaparin Sodium (Lovenox) 40 mg SC DAILY [facility] Last Admin: 07/16/20 07:52 Dose: 40 mg Documented by: Ketorolac Tromethamine (Toradol (Bkc)) 15 mg IV Q6H PRN PRN PRN Reason: Pain Score 4-10/10 Magnesium Oxide (Mag-Ox 400) 400 mg PO DAILY PRN PRN PRN Reason: Constipation Ondansetron HCl (Zofran Odt) 4 mg PO Q6H PRN PRN PRN Reason: NAUSEA Sodium Chloride () 10 - 40 ml IV UD PRN PRN Reason: SALINE FLUSH Discharge Diet: No Restrictions Discharge Activity: Return to Normal Activity, May Shower Call your doctor if your incision/area has: Continuous Slow Oozing, Sudden Increased Bleeding, Increased Pain/ Swelling, Increased Redness, Foul Smelling Discharge, Swelling at the incision site Call your doctor if you observe: Fever of 101 or Higher Home Medications: Medications to take at Discharge NK 06/16/19 Primary Care Physician: Luciano Jaimes MD [Primary Care Provider] - Please Follow Up With: Jacques Uribe MD When: Please call to schedule 2 week follow up appointment. [phone] Medical Necessity - Tobacco Use Smoking Status: Never smoker Tobacco Use: Non-smoker Meaningful Use Info Meaningful Use Diagnoses (Choose all that apply): None applicable
[2020-07-16 15:01] VITALS: BP 141/77; PULSE 65; RESP 18; TEMP 36.4; O2SAT 98
== END 2020-07-16 15:13 | disposition home or self-care (01) | DRG 331 ==
LOC: ACINP 05:34 → MS3 13:21
PROVIDERS: Anesthesiology; Admitting Provider Surgery; PCP Family Medicine; Referring Provider Surgery; Visit Provider Surgery
PROC: 0DTL4ZZ Resection of Transverse Colon, Percutaneous Endoscopic Approach (ICD-10-PCS; principal; 2020-07-14 07:10)
DX: C18.4 Malignant neoplasm of transverse colon (principal)
CPT/HCPCS: 36415; 80048; 82962; 83735; 85025; 87635; 88309; 93005; 94799; 99251; J7050; J7120; C1760; G0463; J2405; U0003

== ENCOUNTER 2021-01-25 12:20 | Outpatient (RCR) | payer MEDICARE, OTHER, SELFPAY ==
[2020-11-03 14:10] VITALS: BMI 27.7
[2021-01-25] MEDS: COVID-19 VACC, MRNA(PFIZER)/PF 30 MCG/0.3 ML SYRINGE IM (18:03)
[2021-02-15] MEDS: COVID-19 VACC, MRNA(PFIZER)/PF 30 MCG/0.3 ML SYRINGE IM (17:32)
== END 2021-04-26 23:59 ==
LOC: IMMUN 12:20
PROVIDERS: PCP Family Medicine; Visit Provider Family Medicine
DX: Z23 Encounter for immunization (principal)
CPT/HCPCS: 0001A; 0002A; 91300

== ENCOUNTER → 2021-02-04 07:45 | Outpatient (CLI) | payer MEDICARE, OTHER, SELFPAY ==
[2021-02-02 14:36] VITALS: BMI 28.6
--- NOTE | 2021-02-04 07:54 | CT_ITS ---
STUDY: CT ABDOMEN AND PELVIS WITH CONTRAST REASON FOR EXAM: Male, 80 years old. Colon cancer. Colon resection several months ago. RADIATION DOSAGE (If Supplied By Facility): CTDIvol = ( 17.90 ) mGy, DLP = ( 1217.72 ) mGycm TECHNIQUE: Transaxial images were obtained from the dome of the diaphragm to the symphysis pubis with oral contrast. Oral and amp; IV Readi-CAT and amp; 100mL Isovue-300 was administered. Sagittal and coronal images were reconstructed. Individualized dose optimization techniques were used for this CT. COMPARISON: Comparison is made with prior study 06/22/2020. FINDINGS: Stable minimal scarring of both changes at the lung bases. Coronary artery calcification. There is decreased attenuation of the liver consistent with steatosis. Normal gallbladder and extrahepatic biliary system. Normal spleen. Normal pancreas. Normal bilateral adrenal glands. Normal right kidney. Normal left kidney. Normal visualized stomach. Normal small intestine. Surgical anastomosis seen in the midportion of the transverse colon. The previously seen mass lesion has been resected. The appendix is visualized and appears normal. There is diffuse atherosclerotic calcification of the abdominal aorta, without a demonstrated aneurysm. Normal inferior vena cava. Normal retroperitoneum. Normal urinary bladder. There is a small umbilical hernia containing fat. Small bilateral inguinal regions containing fat more prominent on the right side. There are diffuse degenerative changes of the visualized lumbar spine. CT/Abdomen/Pelvis WITH Contrast IMPRESSION: Status post resection of the mid transverse colon with anastomosis. Fatty infiltration of the liver. Small bilateral inguinal hernias containing fat more pronounced on the right side as well as a small umbilical hernia. Electronically Signed: Willem Valles MD at 14:12 EDT , Service support ,
== END ==
PROVIDERS: PCP Family Medicine; Referring Provider Nurse Practitioner Family; Visit Provider Nurse Practitioner Family
DX: C18.4 Malignant neoplasm of transverse colon (principal); R10.33 Periumbilical pain
CPT/HCPCS: 74177; Q9967

== ENCOUNTER 2021-07-08 06:30 | Day surgery (SDC) | payer MEDICARE, OTHER, SELFPAY ==
[2021-06-01 09:09] VITALS: BMI 28.1
[2021-07-08] VITALS (7 sets, daily range): BP systolic 104–138; BP diastolic 57–93; PULSE 60–76; RESP 16; TEMP 36.2–36.7; O2SAT 95–98; BMI 27.8
[2021-07-08] MEDS: Lactated Ringers 1,000 ML 100 ML IV (07:07)
--- NOTE | 2021-07-08 07:24 | EKG12_ITS ---
Test Reason : PRE-OP Blood Pressure : / mmHG Vent. Rate : 065 BPM Atrial Rate : 065 BPM P-R Int : 188 ms QRS Dur : 082 ms QT Int : 416 ms P-R-T Axes : 033 -42 045 degrees QTc Int : 432 ms Sinus rhythm with Premature supraventricular complexes Left axis deviation Inferior infarct , age undetermined Abnormal ECG Confirmed by TAMARA CRONIN, LUCIANO ([id number]), school photograph editor CHAMP MALONE ([id number]) on 07/13/2021 8:57:42 AM Referred By: Luciano Jaimes Confirmed By:LUCIANO MCDONALD MD
--- NOTE | 2021-07-08 07:26 | HP.PCM_ITS ---
History and Physical Date of Admission: 07/08/21 Intake Vital Signs 06/01/21 09:05 06/01/21 09:09 Height 6 ft 2.5 in Weight: 226 lb 8 oz BMI 28.7 28.1 BP 182/83 H Blood Pressure Location Rt brachial Position Sitting Respiration 16 Pulse 64 Pulse Source Monitor Temp 97.7 F L Temp Source Temporal Pulse Oximetry (%) 97 Oxygen Delivery Method room air Intake Visit Reasons: C-Scope Chief Complaint: 1 year f/u colon cancer [employer] Operator Required: No Is patient in pain?: Yes Allergies No Known Allergies Allergy (Verified 06/01/21 09:11) Medications cholecalciferol (vitamin D3) 5,000 unit PO QWEEK 11/03/20 [History Confirmed 06/01/21] cyanocobalamin (vitamin B-12) 500 mcg PO QWEEK 11/03/20 [History Confirmed 06/01/21] multivitamin 1 ea PO DAILY 11/03/20 [History Confirmed 06/01/21] PFSH Medical History (Updated 06/01/21 @ 09:04 by Lainey García) Abdominal pain Abdominal wall bulge Cancer of transverse colon Constipation Nephrolithiasis Pseudogout Ventral hernia Surgical History (Updated 06/01/21 @ 09:04 by Lainey García) h/o reverse total shoulder History of bilateral carpal tunnel release History of colonoscopy (06/25/20) History of lithotripsy History of tonsillectomy history ORIF left ankle Hx of arthroscopy of shoulder Hx of colectomy (07/14/20) Family History (Updated 06/01/21 @ 09:05 by Lainey García) Father Heart disease Colon cancer CVA (cerebral vascular accident) CAD (coronary artery disease) Mother ALS (amyotrophic lateral sclerosis) Social History (Updated 06/01/21 @ 09:05 by Lainey García) Smoking Status: Never smoker second hand exposure: No alcohol intake: current details: beer 4 times a week substance use type: does not use caffeine: Yes what type of physical activity do you participate in: none frequency: does not exercise shahnaz/mandaen: [employer]ism seatbelt use: always do you feel safe at home: Yes HPI HPI HPI: JOSÉ MIGUEL RUBIN, is a 81 M who presents to the office today for surveillance colonoscopy. The patient had a transverse colectomy 1 year ago due to colon cancer. Patient recently had CT scan which was normal and normal CEA. He is not having any blood in his stool although he does say he has occasional constipation. Patient also has some bulging on the right side of his incision. ROS General General: Yes weight change and colon cancer; No appetite, fatigue, breast cancer or weakness HEENT HEENT: No difficulty swallowing, eye injury, eye surgery, swollen glands or hoarseness Endo Endocrine: No thyroid disease, diabetes mellitus, thyroid cancer, Hair loss, heat intolerance or cold intolerance Skin Skin: No rash or changing moles Musc Musculoskeletal: Yes gout; No back problems, arthritis, rheumatoid arthritis or joint pain Cardio Cardiovascular: No murmur, pacemaker, heart disease, atrial fibrillation, high blood pressure, heart attack, heart stent, palpitations, shortness of breat with exertion or chest pain Psych Psychiatric: No depression, anxiety or hearing voices Resp Respiratory: No shortness of breath, No sleep apnea, No cough, No COPD, No asthma, No emphysema and No wheezing Gastro Gastrointestinal: Yes abdominal pain, No nausea or vomiting, No diarrhea, Yes constipation, No blood in stool, No acid reflux, No hemorrhoids, No ulcers, No gallbladder problem and No black,tarry stools Home Hematologic: No blood thinners, No blood disorders, No bleeding, No anemia and No blood clots Neuro Neurologic: No weakness Exam Const General: cooperative Orientation: alert and oriented x3 HENMT Head: normal to inspection Neck Neck: normal visual inspection and full ROM Chest Chest palpation & inspection: normal inspection of the chest Resp Effort & Inspection: normal respiratory effort Auscultation: clear to auscultation bilaterally Cardio Rate: regular rate Rhythm: regular rhythm GI Inspection: non-distended Palpation: soft, hernia ventral and nontender Skin General: no rashes or lesions noted Neuro General: patient alert and patient oriented x3 Extrem General: full ROM Psych Appearance: grossly normal Mental Status: mental status grossly normal Assessment and Plan Assessment and Plan (1) Cancer of transverse colon: Status: Chronic Orders: Orders: Colonoscopy Today Plan - Dr. Jacques Uribe MD: The patient has a small ventral hernia at the midline incision at the area of the umbilicus. It is not causing him any issues at this time and there is no bowel inclusion and is very small. Patient would like it repaired at a later date. Patient is due for surveillance colonoscopy due to history of colon cancer 1 year ago. I explained endoscopy in detail to the patient. I explained the risks including but not limited to stroke or heart attack with anesthesia, perforation of the GI tract, bleeding, infection. I explained that any of these could necessitate further emergency surgery. The patient understands and all questions were answered sufficiently. The patient wishes to proceed with procedure. Jacques Uribe MD Pager: [facility] [address] [place] [address] [address] [place] [address] Office: I have re-examined the patient. There are no clinical changes since date of exam.
[2021-07-08 07:47] LABS: Albumin, Serum 3.8 g/dL (3.2-5.0); Anion Gap 5 (5-15); BUN 13 mg/dL (7-18); BUN/Creat Ratio 11.9 RATIO (10-20); Calcium,Total 8.8 mg/dL (8.5-10.1); Chloride 107 mmol/L (98-107); Creatinine, Serum 1.09 mg/dL (0.70-1.30); EST Glomerular Filtration Rate 69 mL/min (>60); Est Glom Filt Rate - Afr Amer 84 mL/min (>60); Estimated Creatinine Clearance 63.89 ml/min; Glucose 111 mg/dL (74-106); Sodium Level 139 mmol/L (136-145)
--- NOTE | 2021-07-08 08:49 | OP.COLON_ITS ---
Patient Name: Ed Gandhi Procedure Date: 07/08/2021 8:04 AM Date of : 1940 Age: 81 Procedure: Colonoscopy Indications: High risk colon cancer surveillance: Personal history of colon cancer Providers: Jacques Uribe MD Medicines: Monitored Anesthesia Care Patient Profile: This is a 81 year old male. Refer to note in patient chart for documentation of history and physical. Last Colonoscopy: 1 year ago. Complications: No immediate complications. Procedure: Pre-Anesthesia Assessment: - Prior to the procedure, a History and Physical was performed, and patient medications and allergies were reviewed. The patient's tolerance of previous anesthesia was also reviewed. The risks and benefits of the procedure and the sedation options and risks were discussed with the patient. All questions were answered, and informed consent was obtained. Prior Anticoagulants: The patient has taken no previous anticoagulant or antiplatelet agents. After reviewing the risks and benefits, the patient was deemed in satisfactory condition to undergo the procedure. After I obtained informed consent, the scope was passed under direct vision. Throughout the procedure, the patient's blood pressure, pulse, and oxygen saturations were monitored continuously. The pediatric colonoscope was introduced through the anus and advanced to the cecum, identified by appendiceal orifice and ileocecal valve. The colonoscopy was performed without difficulty. The patient tolerated the procedure well. The quality of the bowel preparation was good. Scope In: 8:09:56 AM Scope Withdrawal Time 0 hours 6 minutes 5 seconds Scope Out: 8:21:08 AM Total Procedure Duration Time 0 hours 11 minutes 12 seconds Findings: The entire examined colon appeared normal on direct and retroflexion views. Impression: - The entire examined colon is normal on direct and retroflexion views. - No specimens collected. Recommendation: - Discharge patient to home. - Resume previous diet. - Continue present medications. - Repeat colonoscopy in 1 year for surveillance. Procedure Code(s): --- Professional --- G0105, Colorectal cancer screening; colonoscopy on individual at high risk Diagnosis Code(s): --- Professional --- Z85.038, Personal history of other malignant neoplasm of large intestine CPT copyright 2017 [employer]. All rights reserved. The codes documented in this report are preliminary and upon clinical review specialist review may be revised to meet current compliance requirements. Jacques Uribe MD 07/08/2021 8:49:23 AM This report has been signed electronically. Number of Addenda: 0 Note Initiated On: 07/08/2021 8:04 AM
--- NOTE | 2021-07-08 08:50 | OP.CCLET_ITS ---
07/08/2021 Luciano Jaimes MD [address] [id number] Re : Colonoscopy procedure for Ed Gandhi Dear Dr. Jaimes This procedure was performed on Thursday, July 08, 2021. My impressions and recommendations are as follows: Impressions : - The entire examined colon is normal on direct and retroflexion views. - No specimens collected. Recommendations : - Discharge patient to home. - Resume previous diet. - Continue present medications. - Repeat colonoscopy in 1 year for surveillance. My findings are described in the full procedure note, which is enclosed. If I can be of further assistance, please feel free to contact me at Doctor phone number(s): , Work: . Sincerely, Jacques Uribe MD 07/08/2021 8:49:23 AM This report has been signed electronically.
== END 2021-07-08 09:27 | disposition home or self-care (01) ==
LOC: EN 06:33 → AC 06:33
PROVIDERS: Anesthesiology; PCP Family Medicine; Referring Provider Family Medicine; Visit Provider Surgery
PROC: 0DJD8ZZ Inspection of Lower Intestinal Tract, Via Natural or Artificial Opening Endoscopic (ICD-10-PCS; CPT 45378; principal; 2021-07-08 07:25)
DX: Z12.11 Encounter for screening for malignant neoplasm of colon (principal); Z85.038 Personal history of other malignant neoplasm of large intestine; R10.9 Unspecified abdominal pain; Z68.27 Body mass index [BMI] 27.0-27.9, adult
CPT/HCPCS: G0105; 80048; 82040; 83735; 93005; J7120; J2405

== ENCOUNTER → 2021-10-14 09:45 | Outpatient (CLI) | payer MEDICARE, OTHER, SELFPAY ==
[2021-10-14 12:04] LABS: Absolute Lymphocyte Count 1.01 X10^3/uL (0.83-4.51); Basophil# 0.07 X10^3/uL; Basophil% 1.4 % (0-1); Eosinophil# 0.22 X10^3/uL; Eosinophils% 4.3 % (0-5); Hematocrit 42.7 % (40-54); Hemoglobin 13.6 g/dL (13.0-16.5); Lymphocyte # 1.01 X10^3/ul (0.83-4.51); Lymphocyte % 19.9 % (19-41); Mean Corp Hgb Conc 31.9 g/dL (32-36); Mean Corpuscular Hgb 28.3 pg (27.0-32.0); Mean Corpuscular Volume 88.8 fL (80-94); Mean Platelet Vol. 9.9 fl (6.2-12.0); Monocyte% 13.8 % (0-10); NRBC Flagged by Analyzer 0 % (0-5); Neutrophil # 3.03 X10^3/uL (2.7-7.7); Neutrophil % 59.6 % (47-70); Platelet Count 202 K/mm3 (150-450); RBC Distribution Width CV 14.7 % (11.6-14.6); RBC Distribution Width SD 47.5 fl (35.1-43.9); Red Blood Count 4.81 M/mm3 (4.6-6.2); White Blood Count 5.1 K/mm3 (4.4-11.0)
[2021-10-14 12:20] LABS: Anion Gap 6 (5-15); BUN 18 mg/dL (7-18); BUN/Creat Ratio 16.8 RATIO (10-20); Calcium,Total 9.3 mg/dL (8.5-10.1); Chloride 108 mmol/L (98-107); Cholesterol 156 mg/dL (200); Creatinine, Serum 1.07 mg/dL (0.70-1.30); EST Glomerular Filtration Rate 71 mL/min (>60); Est Glom Filt Rate - Afr Amer 86 mL/min (>60); Glucose 86 mg/dL (74-106); High Density Lipoprotein 29 mg/dL; Potassium 3.6 mmol/L (3.5-5.1); Sodium Level 141 mmol/L (136-145); Triglycerides 162 mg/dL; Very Low Density Lipoprotein 32 mg/dL (5-40)
== END ==
PROVIDERS: PCP Family Medicine; Referring Provider Family Medicine; Visit Provider Family Medicine
DX: I10 Essential (primary) hypertension (principal); D69.2 Other nonthrombocytopenic purpura
CPT/HCPCS: 36415; 80048; 80061; 85025

== ENCOUNTER → 2021-10-20 14:01 | Outpatient (CLI) | payer MEDICARE, OTHER, SELFPAY ==
--- NOTE | 2021-10-20 14:03 | ECHOD_ITS ---
Reason For Study: MURMUR Procedure This was a 2D Doppler, Color Flow transthoracic echocardiogram. Exam performed in department. Left Ventricle Normal LV size. The estimated ejection fraction is 55 %. Unable to assess diastolic dysfunction. No regional wall motion abnormalities noted. Right Ventricle Normal RV size. Normal systolic function. Atria The left atrium is mildly enlarged. Normal right atrium. No doppler evidence for ASD. Mitral Valve There is moderate mitral annular calcification. There is no mitral valve stenosis. Mild (1+) mitral valve insufficiency. Tricuspid Valve There is no tricuspid stenosis. Trivial tricuspid valve insufficiency. Pulmonary artery systolic pressure is 45 mmHg. Aortic Valve Moderate diffuse aortic valve thickening. Trisinus/trileaflet aortic valve. Mild aortic stenosis. Trivial aortic valve insufficiency. Pulmonic Valve There is no pulmonic valvular stenosis. No pulmonic valve insufficiency. Great Vessels Normal aortic root. Pericardium/Pleural No pericardial effusion. MMode/2D Measurements & Calculations LVIDd: 4.7 cm IVSd: 1.3 cm LVOT diam: 2.2 cm LVIDs: 2.8 cm LVPWd: 1.3 cm LVOT area: 3.8 cm2 RVDd: 3.8 cm FS: 40.5 % Ao root diam: 4.0 cm LAV(MOD-bp): 95.9 ml LVAd ap4: 35.2 cm2 LAV(MOD-bp) Indexed: 42.3 ml/m2 LVLd ap4: 8.6 cm LAV(MOD-sp2): 89.8 ml EDV(MOD-sp4): 114.0 ml LAV(MOD-sp4): 92.7 ml EDV(sp4-el): 121.8 ml LVAs ap4: 17.6 cm2 LVLs ap4: 6.8 cm ESV(MOD-sp4): 39.7 ml ESV(sp4-el): 38.9 ml EF(MOD-sp4): 65.2 % EF(sp4-el): 68.1 % LVAd ap2: 31.8 cm2 SV(MOD-sp4): 74.3 ml SV(MOD-sp2): 71.0 ml LVLd ap2: 9.2 cm EDV(MOD-sp2): 94.3 ml EDV(sp2-el): 93.2 ml LVAs ap2: 12.8 cm2 LVLs ap2: 6.6 cm ESV(MOD-sp2): 23.3 ml ESV(sp2-el): 21.1 ml EF(MOD-sp2): 75.3 % SV(sp4-el): 82.9 ml LA dimension(2D): 4.9 cm LA A4 area: 27.5 cm2 RA A4 area: 13.8 cm2 Doppler Measurements & Calculations MV E max pantera: 100.5 cm/sec Lat Peak E' Pantera: 2.3 cm/sec Med Peak E' Pantera: 5.4 cm/sec MV A max pantera: 33.7 cm/sec E/E' lat: 43.2 E/E' med: 18.8 MV E/A: 3.0 Ao V2 max: 226.2 cm/sec AI max pantera: 173.4 cm/sec LV V1 max: 116.7 cm/sec Ao max P.5 mmHg AI max P.0 mmHg LV V1 max P.5 mmHg Ao V2 mean: 158.5 cm/sec AI dec slope: 112.4 cm/sec2 LV V1 mean P.1 mmHg Ao mean P.0 mmHg AI P1/2t: 451.9 msec LV V1 mean: 83.9 cm/sec Ao V2 VTI: 42.3 cm LV V1 VTI: 23.0 cm AIMEE(I,D): 2.0 cm2 AIMEE(V,D): 1.9 cm2 SV(LVOT): 86.5 ml TR max pantera: 330.5 cm/sec TR max P.7 mmHg ECHO/Echo Complete Interpretation Summary The estimated ejection fraction is 55 %. Unable to assess diastolic dysfunction. The left atrium is mildly enlarged. Mild (1+) mitral valve insufficiency. Mild aortic stenosis. Trivial aortic valve insufficiency. Ordering Physician: Luciano Jaimes Referring Physician: Luciano Jaimes Performed By: Gabbie Ly, RDCS, RVT
== END ==
PROVIDERS: PCP Family Medicine; Referring Provider Family Medicine; Visit Provider Family Medicine
DX: R01.1 Cardiac murmur, unspecified (principal)
CPT/HCPCS: 93306

== ENCOUNTER → 2022-04-04 | Outpatient (CLI) | payer MEDICARE, OTHER, SELFPAY ==
[2022-04-04 10:56] LABS: Hematocrit 42.8 % (40-54); Hemoglobin 13.7 g/dL (13.0-16.5); Mean Corpuscular Hgb 28.2 pg (27.0-32.0); Mean Corpuscular Volume 88.2 fL (80-94); Mean Platelet Vol. 9.3 fl (6.2-12.0); Platelet Count 231 K/mm3 (150-450); RBC Distribution Width CV 14.4 % (11.6-14.6); RBC Distribution Width SD 45.6 fl (35.1-43.9); Red Blood Count 4.85 M/mm3 (4.6-6.2); White Blood Count 5.4 K/mm3 (4.4-11.0)
[2022-04-04 11:18] LABS: Anion Gap 7 (5-15); BUN 14 mg/dL (7-18); Calcium,Total 8.7 mg/dL (8.5-10.1); Chloride 109 mmol/L (98-107); EST Glomerular Filtration Rate 76 mL/min (>60); Est Glom Filt Rate - Afr Amer 93 mL/min (>60); Glucose 107 mg/dL (74-106); Potassium 4.1 mmol/L (3.5-5.1); Sodium Level 140 mmol/L (136-145)
== END | disposition home or self-care (01) ==
LOC: LAB 10:09
PROVIDERS: PCP Family Medicine; Referring Provider Urology; Visit Provider Urology
DX: Z01.818 Encounter for other preprocedural examination (principal)
CPT/HCPCS: 36415; 80048; 85027

== ENCOUNTER 2022-08-01 06:56 | Day surgery (SDC) | payer MEDICARE, OTHER, SELFPAY ==
[2022-08-01] VITALS (7 sets, daily range): BP systolic 91–165; BP diastolic 44–79; PULSE 60–69; RESP 16; TEMP 36.4–37; O2SAT 96–99; BMI 27.7
[2022-08-01] MEDS: Lactated Ringers 1,000 ML 15 ML IV (07:30)
--- NOTE | 2022-08-01 07:51 | PCM.HP.BLA ---
History and Physical Date of Admission: 08/01/22 Intake Vital Signs ? 06/13/2209:11 Height 6 ft 2 in Weight: 228 lb 4 oz BMI 29.2 BP 192/84 H Blood Pressure Location Rt brachial Position Sitting Respiration 20 H Pulse 61 Pulse Source NIBP Temp 97.2 F L Temp Source Temporal Pulse Oximetry (%) 96 Oxygen Delivery Method room air Intake Visit Reasons:?COLONOSCOPY Chief Complaint: 1 year c-scope Fluorescent Lamp Replacer Required: No Is patient in pain?: No Allergies No Known Allergies Allergy (Verified 06/13/22 09:11) Medications multivitamin 1 ea PO QWEEK supplement 11/03/20 [History Confirmed 06/13/22] lisinopril 5 mg tablet 5 mg PO DAILY 11/03/21 [History Confirmed 06/13/22] PFSH Medical History?(Updated 06/13/22 @ 09:[address] Jacques Uribe MD) Abdominal pain Abdominal wall bulge Cancer of transverse colon Constipation Hepatitis History of kidney stones History of stress test Leg cramps Nephrolithiasis Non-smoker Pseudogout Ventral hernia Wears glasses Wears partial dentures Surgical History?(Updated 06/13/22 @ 09:13 by Leatha Mills) h/o reverse total shoulder History of bilateral carpal tunnel release History of colonoscopy (06/25/20) History of colonoscopy (~04/2021) History of lithotripsy History of tonsillectomy history ORIF left ankle Hx of arthroscopy of shoulder Hx of colectomy (07/14/20) Family History? Father Heart disease Colon cancer CVA (cerebral vascular accident) CAD (coronary artery disease)Mother ALS (amyotrophic lateral sclerosis) Social History? Smoking Status:? Never smoker second hand exposure:? No alcohol intake:? current details:? beer? 4 times a week substance use type:? does not use caffeine:? Yes what type of physical activity do you participate in:? none frequency:? does not exercise shahnaz/christianity:? Hoahaoism seatbelt use:? always do you feel safe at home:? Yes HPI HPI HPI: JOSÉ MIGUEL RUBIN, is a 82 M who presents to the office today for surveillance colonoscopy.? The patient had colectomy for colon cancer 2 years ago and had a normal surveillance colonoscopy last year.? He has not had any issues since last year.? He denies any abdominal pain or blood in the stool. ROS General General: No weight change or fatigue HEENT HEENT: No difficulty swallowing Endo Endocrine: No thyroid disease Musc Musculoskeletal: No back problems or arthritis Cardio Cardiovascular: No pacemaker, heart disease, atrial fibrillation, high blood pressure, heart attack, heart stent, palpitations or chest pain Psych Psychiatric: No depression or anxiety Resp Respiratory: No shortness of breath, No cough, No COPD, No asthma and No emphysema Gastro Gastrointestinal: No abdominal pain, No nausea or vomiting, No diarrhea, No constipation, No blood in stool, No acid reflux, No hemorrhoids, No ulcers, No gallbladder problem and No black,tarry stools Home Hematologic: No blood thinners Exam Const General: cooperative Orientation: alert and oriented x3 HENMT Head: normal to inspection Neck Neck: normal visual inspection and full ROM Chest Chest palpation & inspection: normal inspection of the chest Resp Effort & Inspection: normal respiratory effort Auscultation: clear to auscultation bilaterally Cardio Rate: regular rate Rhythm: regular rhythm GI Inspection: non-distended Palpation: soft, hernia ventral and nontender Skin General: no rashes or lesions noted Neuro General: patient alert and patient oriented x3 Extrem General: full ROM Psych Appearance: grossly normal Mental Status: mental status grossly normal Assessment and Plan Assessment and Plan (1) History of colon cancer: ?Status:?Acute ?Plan: The patient has a history of colon cancer and had transverse colectomy 2 years ago.? He is here to discuss surveillance colonoscopy. I explained endoscopy in detail to the patient.? I explained the risks including but not limited to stroke or heart attack with anesthesia, perforation of the GI tract, bleeding, infection.? I explained that any of these could necessitate further emergency surgery.? The patient understands and all questions were answered sufficiently.? The patient wishes to proceed with procedure. Jacques Uribe MD Pager: [facility] [address] [place] [address], [address] [place] [address] Office: I have re-examined the patient. There are no clinical changes since date of exam.
--- NOTE | 2022-08-01 08:19 | OP.COLON_ITS ---
Patient Name: Ed Gandhi Procedure Date: 08/01/2022 7:55 AM Date of : 1940 Age: 82 Procedure: Colonoscopy Indications: High risk colon cancer surveillance: Personal history of colon cancer Providers: Jacques Uribe MD Medicines: Monitored Anesthesia Care Patient Profile: This is an 82 year old male. Refer to note in patient chart for documentation of history and physical. Last Colonoscopy: 1 year ago. Complications: No immediate complications. Procedure: Pre-Anesthesia Assessment: - Prior to the procedure, a History and Physical was performed, and patient medications and allergies were reviewed. The patient's tolerance of previous anesthesia was also reviewed. The risks and benefits of the procedure and the sedation options and risks were discussed with the patient. All questions were answered, and informed consent was obtained. Prior Anticoagulants: The patient has taken no previous anticoagulant or antiplatelet agents. After reviewing the risks and benefits, the patient was deemed in satisfactory condition to undergo the procedure. After I obtained informed consent, the scope was passed under direct vision. Throughout the procedure, the patient's blood pressure, pulse, and oxygen saturations were monitored continuously. The pediatric colonoscope was introduced through the anus and advanced to the cecum, identified by appendiceal orifice and ileocecal valve. The colonoscopy was performed without difficulty. The patient tolerated the procedure well. The quality of the bowel preparation was good. Scope In: 8:03:17 AM Scope Withdrawal Time 0 hours 6 minutes 2 seconds Scope Out: 8:16:16 AM Total Procedure Duration Time 0 hours 12 minutes 59 seconds Findings: The entire examined colon appeared normal on direct and retroflexion views. Impression: - The entire examined colon is normal on direct and retroflexion views. - No specimens collected. Recommendation: - Discharge patient to home. - Resume previous diet. - Continue present medications. - Repeat colonoscopy in 3 years for surveillance. Procedure Code(s): --- Professional --- 80602, Colonoscopy, flexible; diagnostic, including collection of specimen(s) by brushing or washing, when performed (separate procedure) Diagnosis Code(s): --- Professional --- Z85.038, Personal history of other malignant neoplasm of large intestine CPT copyright 2017 [employer]. All rights reserved. The codes documented in this report are preliminary and upon supervisor home restoration service review may be revised to meet current compliance requirements. Jacques Uribe MD 08/01/2022 8:18:58 AM This report has been signed electronically. Number of Addenda: 0 Note Initiated On: 08/01/2022 7:55 AM
--- NOTE | 2022-08-01 08:20 | OP.CCLET_ITS ---
08/01/2022 Luciano Jaimes MD [address] [id number] Re : Colonoscopy procedure for Ed Gandhi Dear Dr. Jaimes This procedure was performed on Monday, August 01, 2022. My impressions and recommendations are as follows: Impressions : - The entire examined colon is normal on direct and retroflexion views. - No specimens collected. Recommendations : - Discharge patient to home. - Resume previous diet. - Continue present medications. - Repeat colonoscopy in 3 years for surveillance. My findings are described in the full procedure note, which is enclosed. If I can be of further assistance, please feel free to contact me at Doctor phone number(s): , Work: . Sincerely, Jacques Uribe MD 08/01/2022 8:18:58 AM This report has been signed electronically.
== END 2022-08-01 09:09 | disposition home or self-care (01) ==
LOC: EN 06:56 → AC 06:58
PROVIDERS: PCP Family Medicine; Referring Provider Family Medicine; Visit Provider Surgery
PROC: 0DJD8ZZ Inspection of Lower Intestinal Tract, Via Natural or Artificial Opening Endoscopic (ICD-10-PCS; CPT 45378; principal; 2022-08-01 07:55)
DX: Z12.11 Encounter for screening for malignant neoplasm of colon (principal); I10 Essential (primary) hypertension; Z80.0 Family history of malignant neoplasm of digestive organs; Z79.899 Other long term (current) drug therapy; Z85.038 Personal history of other malignant neoplasm of large intestine
CPT/HCPCS: 45378; J7120; J2405

== ENCOUNTER → 2023-02-13 | Outpatient (CLI) | payer MEDICARE, OTHER, SELFPAY ==
--- NOTE | 2023-02-13 13:44 | CT_ITS ---
STUDY: CT CHEST, ABDOMEN T PELVIS WITH CONTRAST REASON FOR EXAM: Male, 82 years old. COLON CANCER 2020 WITH RISING TUMOR MARKER RADIATION DOSAGE (If Supplied By Facility): CTDIvol = ( 19.02 ) mGy, DLP = ( 1844.16 ) mGycm TECHNIQUE: Transaxial imaging was performed following intravenous administration of Oral and amp; IV Readi-CAT and amp; 100mL Isovue-370. Multiplanar coronal and sagittal images were reformatted. Individualized dose optimization techniques were used for this CT. COMPARISON: Comparison is made with prior study February 04, 2021. FINDINGS: CHEST Minimal degree of increased markings at the lung bases suggestive of a either mild degree of bibasilar scarring versus dependent atelectasis. There is a 1.1 cm bulla in the posterior aspect of the right upper lobe. There is no demonstrated pleural abnormality. There are calcifications of the coronary arteries. There are multiple small lymph nodes within the mediastinum, which are normal in size and morphology most compatible with reactive lymph hyperplasia. Normal hilar regions. Normal unenhanced pulmonary arteries. Normal aorta arch and descending thoracic aorta. There are degenerative changes of the thoracic spine. There is no demonstrated abnormality of the visualized upper abdomen. ABDOMEN Fatty infiltration of the liver. The gallbladder is contracted. Normal spleen. Normal pancreas. Normal bilateral adrenal glands. 3 mm nonobstructive calculus in the upper pole calyx of the right kidney. 2 mm nonobstructive calculus in the upper pole calyx of the left kidney. 5 mm nonobstructive calculus in the anterior midpole calyx of the left kidney. There is a 2.5 cm cyst in the lower pole of the left kidney. Normal visualized stomach. Normal small intestine. The patient is status post right hemicolectomy. There is non-visualization of the appendix. There is diffuse atherosclerotic calcification of the abdominal aorta, without a demonstrated aneurysm. Normal inferior vena cava. Normal retroperitoneum. There is a right-sided inguinal hernia containing adipose tissue. There are diffuse degenerative changes of the visualized lumbar spine. PELVIS Normal urinary bladder. Normal visualized small intestine. Normal visualized colon. There is no pelvic fluid. There is no pelvic lymphadenopathy or mass lesion. Normal visualized pelvic arteries. There is diastases of the rectus abdominal muscles with small bowel abutting the anterior abdominal wall. No evidence of herniation. CT/CT Chest, Abd, Pel w/Contrast IMPRESSION: Stable examination. Electronically Signed: Willem Valles MD at 14:19 EDT ,
== END | disposition home or self-care (01) ==
LOC: CT 13:44
PROVIDERS: PCP Family Medicine; Visit Provider Internal Medicine Hematology & Oncology
DX: R97.8 Other abnormal tumor markers (principal); Z85.038 Personal history of other malignant neoplasm of large intestine
CPT/HCPCS: 71260; 74177; Q9967

== ENCOUNTER 2023-02-23 08:31 | Day surgery (SDC) | payer MEDICARE, OTHER, SELFPAY ==
--- NOTE | 2023-02-23 | IMM_PTH ---
PATIENT: JOSÉ MIGUEL RUBIN LOC: EN U#:[id number] AGE/SX: 82/M ROOM: RE02/23/[address]: Dr. Jacques Uribe MD : 1940 BED: DIS: 02/23/2023 SPEC #: [id number] RECD: 02/26/23 13:35 STATUS: DEREK REMicky #: [id number] ALICIA: 02/23/23 00:[address]: Jacques Uribe DEPT: IMMUNOHISTOCHEMISTRY RECD BY: Nelia Muro ENTERED: 02/26/23 13:36 SP TYPE: IMMUNO OTHR DR: Dr. Luciano Jaimes MD Tissues: Transverse colon Procedures: MSH2 (add) MLH-1 (add) MSH6 (add) Anti-PMS2 (add) ALEJO-2 (add) HER2 MARIAM (add) P53 (add) KI-67 (initial) PHYSICIAN & INSTITUTION [place] [address] SPECIMEN INFORMATION: Tissue Source: Transverse colon Clinical Info: Colon cancer Specimen Number: [id number] CPT code: 99774, 92131 x7 METHODOLOGY: Deparaffinized sections of prefer/formalin-fixed tissue or PAP/DQ stained slides are incubated with monoclonal/polyclonal antibodies/oligonucleotide probes. Localization is made via biotin free immunoperoxidase method. Appropriate controls are performed and reacted as expected. Results on target cell population are indicated in the following table: RESULTS: ANTIBODY / CLONE RESULT Her-2neu (CB11) negative ALEJO-2 (SP21) positive MLH-1 (M1) negative MSH2 (25D12) positive MSH6 (44) positive PMS2 (BDK6435) positive Ki-67 (30-9) positive, 88% P53 (DO-7) positive, 85% These tests were developed and their performance characteristics determined by [facility]. They may not have been cleared or approved by the U.S. Food and Drug Administration. The FDA has determined that such clearance or approval is not necessary. The above immunohistochemical/dualISH markers are ordered and reviewed by the Pathologist. INTERPRETATION: Transverse colon, biopsy: Invasive adenocarcinoma. Result of Microsatellite Instability Study: Positive (loss of mismatch protein; microsatellite instability detected). Complete loss of MLH1. AM:rajan 02/27/2023
[2023-02-23 08:50] VITALS: BP 161/75; PULSE 60; RESP 18; TEMP 36.4; O2SAT 99; BMI 28.3
[2023-02-23] MEDS: Lactated Ringers 1,000 ML 15 ML IV (08:53)
--- NOTE | 2023-02-23 09:19 | PCM.HP.BLA ---
History and Physical Date of Admission: 02/23/23 Intake Vital Signs ? 02/19/2309:12 Height 6 ft 2 in Weight: 230 lb 2 oz BMI 29.5 BP 179/84 H Blood Pressure Location Rt brachial Position Sitting Respiration 17 Pulse 84 Pulse Oximetry (%) 96 Intake Visit Reasons:?COLONOSCOPY Chief Complaint: Colonoscopy consult Allergies No Known Allergies Allergy (Verified 02/15/23 09:57) PFSH Medical History? Abdominal pain Abdominal wall bulge Cancer Cancer of transverse colon Constipation Hepatitis History of echocardiogram History of irregular heartbeat History of kidney stones History of stress test Leg cramps Nephrolithiasis Non-smoker Pseudogout Ventral hernia Wears glasses Wears partial dentures Surgical History? h/o reverse total shoulder History of bilateral carpal tunnel release History of colonoscopy (06/25/20) History of colonoscopy (~04/2021) History of lithotripsy History of tonsillectomy history ORIF left ankle Hx of arthroscopy of shoulder Hx of colectomy (07/14/20) Family History? Father Heart disease Colon cancer CVA (cerebral vascular accident) CAD (coronary artery disease)Mother ALS (amyotrophic lateral sclerosis) Social History? Smoking Status:? Never smoker second hand exposure:? No alcohol intake:? current details:? beer? 4 times a week substance use type:? does not use caffeine:? Yes what type of physical activity do you participate in:? none frequency:? does not exercise shahnaz/confucianist:? Jehovah'S Witness seatbelt use:? always do you feel safe at home:? Yes HPI HPI HPI: Patient is an 82-year-old male here for colonoscopy.? Patient had a history of transverse colectomy for colon cancer and has not been found to have a recurrence at the anastomosis site on CT scan. ROS General General: Yes colon cancer; No weight change, appetite, fatigue, breast cancer or weakness HEENT HEENT: No difficulty swallowing, eye injury, eye surgery, swollen glands or hoarseness Endo Endocrine: No thyroid disease, diabetes mellitus, thyroid cancer, Hair loss, heat intolerance or cold intolerance Skin Skin: No rash or changing moles Breast Breast: No left breast lump, right breast lump, nipple discharge, breast pain, abnormal mammogram, abnormal US or breast enlargement Musc Musculoskeletal: Yes gout; No back problems, arthritis, rheumatoid arthritis or joint pain Cardio Cardiovascular: Yes murmur and high blood pressure; No pacemaker, heart disease, atrial fibrillation, heart attack, heart stent, palpitations, shortness of breat with exertion or chest pain Psych Psychiatric: No depression, anxiety or hearing voices Resp Respiratory: No shortness of breath, No sleep apnea, No cough, No COPD, No asthma, No emphysema and No wheezing Gastro Gastrointestinal: No abdominal pain, No nausea or vomiting, Yes diarrhea, Yes constipation, No blood in stool, No acid reflux, No hemorrhoids, No ulcers, No gallbladder problem and No black,tarry stools Home Hematologic: No blood thinners, No blood disorders, No bleeding, No anemia and No blood clots Neuro Neurologic: No system reviewed and no additional complaints, except as documented, No as per HPI, No abnormal gait, No abnormal hearing, No abnormal movements, No abnormal speech, No behavioral changes, No burning sensations, No confusion, No convulsions, No disequilibrium, No dizziness, No localized weakness, No frequent falls, No headache(s), No lack of coordination, No loss of vision, No memory loss, No numbness, No other visual disturbances, No radicular pain, No restless legs, No sensory deficit, No syncope, No tingling, No tremor(s), No weakness and No other Exam Const General: cooperative Orientation: alert and oriented x3 [facility] Head: normal to inspection Neck Neck: normal visual inspection and full ROM Chest Chest palpation & inspection: normal inspection of the chest Resp Effort & Inspection: normal respiratory effort Auscultation: clear to auscultation bilaterally Cardio Rate: regular rate Rhythm: regular rhythm GI Inspection: non-distended Palpation: soft and nontender Skin General: no rashes or lesions noted Neuro General: patient alert and patient oriented x3 Extrem General: full ROM Psych Appearance: grossly normal Mental Status: mental status grossly normal Assessment and Plan Assessment and Plan (1) Local recurrence of colon cancer: ?Status:?Acute ?Plan: Patient has local recurrence of his colon cancer at the transverse colon.? I will perform a colonoscopy to try to get pathology and tissue but the patient will go to [facility] for surgery as the tumor abuts the SMV and the SMA. I explained endoscopy in detail to the patient.? I explained the risks including but not limited to stroke or heart attack with anesthesia, perforation of the GI tract, bleeding, infection.? I explained that any of these could necessitate further emergency surgery.? The patient understands and all questions were answered sufficiently.? The patient wishes to proceed with procedure. Jacques Uribe MD Pager: [facility] [address] [place] [address], [address] [place] [address] Office: I have examined the patient and the H&P has been reviewed. There are no clinical changes since date of exam.
--- NOTE | 2023-02-23 09:45 | COLBX_PTH ---
PATIENT: JOSÉ MIGUEL RUBIN LOC: EN U#:[id number] AGE/SX: 82/M ROOM: RE02/23/[address]: Dr. Jacques Uribe MD : 1940 BED: DIS: 02/23/2023 SPEC #: [id number] RECD: 02/23/23 12:20 STATUS: DEREK BEKA #: [id number] ALICIA: 02/23/23 09:[address]: Jacques Uribe DEPT: SURGICAL PATHOLOGY RECD BY: Sandra Sanchez ENTERED: 02/23/23 12:20 SP TYPE: COLON BX OTHR DR: Dr. 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 See comment. AM:rajan 02/26/2023 COMMENT Immunohistochemistry ([id number]) supports the above diagnosis. Case has been reviewed in consultation with Dr. Lazcano who concurs with the above diagnosis. MIRIAM:WEN MICROSCOPIC DESCRIPTION Slides are reviewed. GROSS DESCRIPTION Received in fixative is one container labeled with the patient's name and designated transverse colon mass. The specimen consists of multiple irregular fragments of light schaefer soft tissue that in aggregate measure 1.0 x 0.4 x 0.1 cm. The specimen is totally submitted in one cassette. / SJ:rajan 02/23/2023 TC:0 CPT: 01375 ADDENDUM ADDENDUM ADDENDUM ADDENDUM ADDENDUM ADDENDUM ADDENDUM ADDENDUM ADDENDUM ADDENDUM ADDENDUM ADDENDUM ADDENDUM ADDENDUM 04/10/2023 08:54 ADDENDUM 04/10/2023 08:54 ADDENDUM 04/10/2023 08:54 ADDENDUM 04/10/2023 08:54 ADDENDUM 04/10/2023 08:54 [facility] NGS SEQUENCING REPORT FROM [employer] RESULT SUMMARY: Abnormal PERTINENT NEGATIVE RESULTS: The following genes are NEGATIVE for clinically relevant mutations. Mutational hotspots and surrounding exonic regions were interrogated for DNA level point mutations and indels (fusions not assayed). 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 Please see complete report in e-chart or EMR
[2023-02-23 09:50] VITALS: BP 122/62; BP 161/75; PULSE 62; RESP 14; TEMP 36.7; O2SAT 98
--- NOTE | 2023-02-23 09:51 | OP.COLON_ITS ---
Patient Name: Ed Gandhi Procedure Date: 02/23/2023 9:20 AM Date of : 1940 Age: 82 Procedure: Colonoscopy Indications: Follow-up of colon cancer Providers: Jacques Uribe MD Medicines: Monitored Anesthesia Care Patient Profile: This is an 82 year old male. Refer to note in patient chart for documentation of history and physical. Last Colonoscopy: within the past 3 years. Complications: No immediate complications. Procedure: Pre-Anesthesia Assessment: - Prior to the procedure, a History and Physical was performed, and patient medications and allergies were reviewed. The patient's tolerance of previous anesthesia was also reviewed. The risks and benefits of the procedure and the sedation options and risks were discussed with the patient. All questions were answered, and informed consent was obtained. Prior Anticoagulants: The patient has taken no previous anticoagulant or antiplatelet agents. After reviewing the risks and benefits, the patient was deemed in satisfactory condition to undergo the procedure. After I obtained informed consent, the scope was passed under direct vision. Throughout the procedure, the patient's blood pressure, pulse, and oxygen saturations were monitored continuously. The pediatric colonoscope was introduced through the anus and advanced to the cecum, identified by appendiceal orifice and ileocecal valve. The colonoscopy was performed without difficulty. The patient tolerated the procedure well. The quality of the bowel preparation was good. Scope In: 9:34:20 AM Scope Withdrawal Time 0 hours 6 minutes 45 seconds Scope Out: 9:45:45 AM Total Procedure Duration Time 0 hours 11 minutes 25 seconds Findings: A non-obstructing large mass was found at the anastomosis. The mass was non-circumferential. Oozing was present. This was biopsied with a cold forceps for histology. The exam was otherwise without abnormality on direct and retroflexion views. 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 Biopsied. - The examination was otherwise normal on direct and retroflexion views. Recommendation: - Discharge patient to home. - Resume previous diet. - Continue present medications. - Await pathology results. - Repeat colonoscopy after studies are complete for surveillance based on pathology results. Procedure Code(s): --- Professional --- 78698, Colonoscopy, flexible; with biopsy, single or multiple Diagnosis Code(s): --- Professional --- D49.0, Neoplasm of unspecified behavior of digestive system C18.9, Malignant neoplasm of colon, unspecified CPT copyright 2017 [employer]. All rights reserved. The codes documented in this report are preliminary and upon lands resource manager review may be revised to meet current compliance requirements. Jacques Uribe MD 02/23/2023 9:50:52 AM This report has been signed electronically. Number of Addenda: 0 Note Initiated On: 02/23/2023 9:20 AM
--- NOTE | 2023-02-23 09:52 | OP.CCLET_ITS ---
02/23/2023 Otis Sher [address] [place] [address] Re : Colonoscopy procedure for Ed Rojoronda Dear Dr. Sher This procedure was performed on Thursday, February 23, 2023. 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 Biopsied. - The examination was otherwise normal on direct and retroflexion views. Recommendations : - Discharge patient to home. - Resume previous diet. - Continue present medications. - Await pathology results. - Repeat colonoscopy after studies are complete for surveillance based on pathology results. My findings are described in the full procedure note, which is enclosed. If I can be of further assistance, please feel free to contact me at Doctor phone number(s): , Work: . Sincerely, Jacques Uribe MD 02/23/2023 9:50:52 AM This report has been signed electronically.
[2023-02-23 09:55] VITALS: BP 111/67; BP 161/75; PULSE 64; RESP 16; O2SAT 99
[2023-02-23 10:00] VITALS: BP 110/64; BP 161/75; PULSE 56; RESP 16; O2SAT 96
[2023-02-23 10:05] VITALS: BP 115/68; BP 161/75; PULSE 55; RESP 16; TEMP 36.2; O2SAT 97
[2023-02-23 10:23] VITALS: BP 161/75
== END 2023-02-23 10:44 | disposition home or self-care (01) ==
LOC: EN 08:31 → AC 08:32
PROVIDERS: PCP Family Medicine; Referring Provider Family Medicine; Visit Provider Surgery
PROC: 0DJD8ZZ Inspection of Lower Intestinal Tract, Via Natural or Artificial Opening Endoscopic (ICD-10-PCS; CPT 45378; principal; 2023-02-23 09:40)
DX: C18.4 Malignant neoplasm of transverse colon (principal); I10 Essential (primary) hypertension; Z79.899 Other long term (current) drug therapy
CPT/HCPCS: 45380; 88305; 88341; 88342; J7120; J2405

== ENCOUNTER 2023-03-15 07:10 | Day surgery (SDC) | payer MEDICARE, OTHER, SELFPAY ==
[2023-03-15 07:42] VITALS: BP 138/69; PULSE 63; RESP 16; TEMP 37.1; O2SAT 98; BMI 29.2
[2023-03-15] MEDS: Lactated Ringers 1,000 ML 15 ML IV (08:03)
--- NOTE | 2023-03-15 08:26 | PCM.HP.BLA ---
History and Physical Date of Admission: 03/15/23 Intake Vital Signs ? 02/24/2308:50 03/12/2308:59 Height 6 ft 2 in 6 ft 2 in Weight: ? 220 lb BMI ? 28.2 BP ? 169/82 H Blood Pressure Location ? Rt brachial Position ? Sitting Respiration ? 16 Intake Visit Reasons:?PORT PLACEMENT Chief Complaint: port consult Script Writer Required: No Is patient in pain?: No Allergies No Known Allergies Allergy (Verified 03/12/23 08:59) Medications lisinopril 5 mg tablet 5 mg PO DAILY 11/03/21 [History Confirmed 03/12/23] PFSH Medical History? Abdominal pain Abdominal wall bulge Alcohol use Cancer Cancer of transverse colon Constipation Hepatitis History of echocardiogram History of irregular heartbeat History of kidney stones History of stress test Hypertension Leg cramps Low iron Nephrolithiasis Non-smoker Pseudogout Ventral hernia Wears glasses Wears partial dentures Surgical History? h/o reverse total shoulder History of bilateral carpal tunnel release History of colonoscopy (06/25/20) History of colonoscopy (~04/2021) History of lithotripsy History of tonsillectomy history ORIF left ankle Hx of arthroscopy of shoulder Hx of colectomy (07/14/20) Family History? Father Heart disease Colon cancer CVA (cerebral vascular accident) CAD (coronary artery disease)Mother ALS (amyotrophic lateral sclerosis) Social History? Smoking Status:? Never smoker second hand exposure:? No alcohol intake:? current details:? beer? 4 times a week substance use type:? does not use caffeine:? Yes what type of physical activity do you participate in:? none frequency:? does not exercise shahnaz/shinto:? Protestant seatbelt use:? always do you feel safe at home:? Yes HPI HPI HPI: Patient is an 82-year-old male here for port placement for his recurrent colon cancer before surgery.? Patient has no new complaints at this time. ROS General General: Yes colon cancer; No weight change, appetite, fatigue, breast cancer or weakness HEENT HEENT: No difficulty swallowing, eye injury, eye surgery, swollen glands or hoarseness Endo Endocrine: No thyroid disease, diabetes mellitus, thyroid cancer, Hair loss, heat intolerance or cold intolerance Skin Skin: No rash or changing moles Breast Breast: No left breast lump, right breast lump, nipple discharge, breast pain, abnormal mammogram, abnormal US or breast enlargement Musc Musculoskeletal: Yes gout; No back problems, arthritis, rheumatoid arthritis or joint pain Cardio Cardiovascular: Yes murmur and high blood pressure; No pacemaker, heart disease, atrial fibrillation, heart attack, heart stent, palpitations, shortness of breat with exertion or chest pain Psych Psychiatric: No depression, anxiety or hearing voices Resp Respiratory: No shortness of breath, No sleep apnea, No cough, No COPD, No asthma, No emphysema and No wheezing Gastro Gastrointestinal: No abdominal pain, No nausea or vomiting, Yes diarrhea, Yes constipation, No blood in stool, No acid reflux, No hemorrhoids, No ulcers, No gallbladder problem and No black,tarry stools Home Hematologic: No blood thinners, No blood disorders, No bleeding, No anemia and No blood clots Neuro Neurologic: No system reviewed and no additional complaints, except as documented, No as per HPI, No abnormal gait, No abnormal hearing, No abnormal movements, No abnormal speech, No behavioral changes, No burning sensations, No confusion, No convulsions, No disequilibrium, No dizziness, No localized weakness, No frequent falls, No headache(s), No lack of coordination, No loss of vision, No memory loss, No numbness, No other visual disturbances, No radicular pain, No restless legs, No sensory deficit, No syncope, No tingling, No tremor(s), No weakness and No other Exam Const General: cooperative Orientation: alert and oriented x3 HENMT Head: normal to inspection Neck Neck: normal visual inspection and full ROM Chest Chest palpation & inspection: normal inspection of the chest Resp Effort & Inspection: normal respiratory effort Auscultation: clear to auscultation bilaterally Cardio Rate: regular rate Rhythm: regular rhythm GI Inspection: non-distended Palpation: soft and nontender Skin General: no rashes or lesions noted Neuro General: patient alert and patient oriented x3 Extrem General: full ROM Psych Appearance: grossly normal Mental Status: mental status grossly normal Assessment and Plan Assessment and Plan (1) Local recurrence of colon cancer: ?Status:?Acute (2) Encounter for insertion of venous access port: ?Status:?Acute Plan Has recurrent colon cancer and requires port for neoadjuvant therapy.? I discussed right chest port placement with the patient and I discussed the risks including modality to bleeding, infection, pneumothorax or line infection or DVT.? Patient understands the risks and is when to proceed and I will schedule him for surgery later this week. Jacques Uribe MD Pager: [facility] [address] [place] [address] [address] [place] [address] Office: I have examined the patient and the H&P has been reviewed. There are no clinical changes since date of exam.
[2023-03-15] MEDS: Cefazolin 2 GM in 0.9% Normal Saline 100 ML IV (09:00)
[2023-03-15] MEDS: Bupivacaine 0.25% 30 ML Vial INFILT (09:00)
--- NOTE | 2023-03-15 09:18 | OP.PCM_ITS ---
Report of Operation Date of Procedure: 03/15/23 Pre-Operative Diagnosis: Recurrent colon cancer, need for vascular access for c hemotherapy Post-Operative Diagnosis: Same Surgery/Procedure Performed:: Ultrasound and fluoroscopy guided right chest port placement utilizing right IJ Description of Procedure: After obtaining informed consent patient was brought back to the operating room MAC anesthesia was induced and the right chest and neck were prepped in normal sterile fashion. Ultrasound was used to evaluate both IJs and the right IJ was selected. Next, using a needle, the right IJ was accessed and a guidewire was passed on into the superior vena cava under fluoroscopy guidance. A small incision was made over the puncture site and the dilator introducer was placed over the guidewire. Next this was capped and the pocket was made for the port. 1% lidocaine with epinephrine was injected in the proposed port site. An incision was made with scalpel. Electrocautery was used to make a pocket under the skin and subcutaneous tissue. Hemostasis was obtained. Next, the catheter was tunneled up to the neck incision site and placed through the introducer. The peel-away introducer was removed and the position of the catheter was confirmed on fluoroscopy. Next, the catheter was trimmed and attached to the port with the locking device. Interrupted 2-0 Vicryl sutures were used to anchor the port to the chest wall and then the port was placed inside the pocket. The pocket was then flushed with saline and the port irrigated with saline. There was good blood return and the port flushed easily. Next, heparin was injected into the port. The skin was closed with subcutaneous interrupted 3-0 Vicryl sutures. A single 3-0 Vicryl sutures placed under the skin at the neck incision site. Steri-Strips were placed as well as op sites. Patient tolerated procedure well, was taken to PACU in stable condition. Chest x-ray will be obtained. Grafts/Implants Used: 8 [employer] Admit VTE Documentation VTE Mechan Device Prophylaxis: SCD's
--- NOTE | 2023-03-15 09:19 | DCINST_ITS ---
Discharge Instructions Procedure Port-A-Cath Diet Discharge Diet: Light diet - advance as tolerated (Pain medication may cause nausea. You should typically eat light foods as you take your pain medication.) Activity Discharge Activity: Return to Normal Activity and May Shower (with your bandage in place in 1-2 days after surgery. DO NOT SHOWER WHEN YOUR PORT IS ACCESSED.) Dressing / Incision Call your doctor if your incision/area has: Continuous Slow Oozing, Sudden Increased Bleeding, Increased Pain/ Swelling, Increased Redness and Foul Smelling Discharge Call your doctor if you observe: Fever of 101 or Higher Remove Dressing in: 2 days Cleanse incision/area with: Soap & Water Follow Up Care Please Follow Up With: Jacques Uribe MD When: as needed [phone] Test Results: Test results from this visit will be discussed in further detail at your follow- up appointment, if applicable. Discharge Plan Admission Attending Provider: Jacques Uribe Primary Care Provider: Luciano Jaimes Discharge Orders/Prescriptions Prescriptions: No Action lisinopril 5 mg tablet 5 mg PO DAILY lidocaine-prilocaine 2.5-2.5 % cream 1 applic topical ONCE PRN (Reason: port access) 30 Days Qty: 30 2RF ondansetron 8 mg tablet,disintegrating 8 mg PO Q8H PRN (Reason: nausea and vomiting) Qty: 30 2RF omeprazole 20 mg capsule,delayed release(DR/EC) 20 mg PO DAILY PRN (Reason: reflux) Qty: 30 2RF Referrals / Follow Up: Luciano Jaimes MD [Primary Care Provider] - Disposition Disposition (needs filled in before D/C Order can be placed): Home, Self Care
[2023-03-15 09:20] VITALS: BP 134/80; BP 138/69; PULSE 57; RESP 16; TEMP 36.6; O2SAT 95
[2023-03-15 09:25] VITALS: BP 125/68; BP 138/69; PULSE 56; RESP 16; O2SAT 97
--- NOTE | 2023-03-15 09:25 | RAD_ITS ---
HISTORY: line placement -- in pacu. TECHNIQUE: XR Chest 1 View. COMPARISON: CT 02/13/2023. FINDINGS: CARDIOMEDIASTINAL BORDERS: Cardiac silhouette within normal limits in size. Mediastinal contour unremarkable with calcification of the aorta. Right chest wall port with catheter tip at the level of the superior vena cava. LUNGS: Low lung volumes with mild linear bibasilar atelectasis or scarring. PLEURA: No pleural effusion or pneumothorax seen. OSSEOUS STRUCTURES: Right shoulder arthroplasty noted. RAD/CXR for Line Placement IMPRESSION: No acute cardiopulmonary process identified. Satisfactory appearance of right chest wall port. Electronically Signed: Laurie Brennan MD at 9:45 EDT ,
[2023-03-15 09:30] VITALS: BP 125/68; BP 138/69; PULSE 54; RESP 16; O2SAT 95
[2023-03-15 09:35] VITALS: BP 123/69; BP 138/69; PULSE 57; RESP 16; TEMP 36.6; O2SAT 96
[2023-03-15 10:12] VITALS: BP 125/57; BP 138/69; PULSE 64; RESP 16; TEMP 37; O2SAT 97
== END 2023-03-15 10:21 | disposition home or self-care (01) ==
LOC: SDC 07:11 → AC 07:13
PROVIDERS: PCP Family Medicine; Referring Provider Surgery; Visit Provider Surgery
PROC: (CPT 36561; principal; 2023-03-15 08:35)
DX: Z45.2 Encounter for adjustment and management of vascular access device (principal); C18.9 Malignant neoplasm of colon, unspecified; I10 Essential (primary) hypertension; Z79.899 Other long term (current) drug therapy
CPT/HCPCS: 36561; 00532; 71045; 77001; J7120; C1788; J2405

== ENCOUNTER → 2023-07-09 | Outpatient (CLI) | payer MEDICARE, OTHER, SELFPAY ==
--- NOTE | 2023-07-09 13:55 | CT_ITS ---
EXAM: CT CHEST, ABDOMEN AND PELVIS WITH INTRAVENOUS CONTRAST CLINICAL INDICATION: restage colon ca, post chemo response; IV and oral . TECHNIQUE: Helically acquired images were obtained of the chest, abdomen and pelvis with intravenous contrast. This CT exam was performed using one or more of the following dose reduction techniques: automated exposure control, adjustment of the mA and/or kV according to patient size, and/or use of iterative reconstruction technique. CONTRAST: Oral and amp; IV Readi-CAT and amp; 100mL Isovue-300. Oral contrast was administered. RADIATION DOSE: CTDIvol = 19.33 mGy, DLP = 2247.23 mGy-cm COMPARISON: CT PET scan 02/20/2023. CT scan chest abdomen and pelvis 02/13/2023. FINDINGS: CHEST: LUNGS AND PLEURAL SPACES: There are centrilobular and paraseptal emphysematous bullae in the lungs bilaterally. There is mild atelectasis or fibrosis in the posterior lungs and lung bases. There are no visualized acute pulmonary infiltrates or masses. No pleural effusion or thickening. No pneumothorax. HEART: There are coronary artery calcifications. Heart size is normal. No pericardial effusion. MEDIASTINUM: Unremarkable. No mediastinal or hilar adenopathy. Esophagus is unremarkable. No hiatal hernia. THYROID: Unremarkable. No thyroid lesions. ABDOMEN: LIVER: Unremarkable. Homogeneous. No focal mass. GALLBLADDER AND BILE DUCTS: Unremarkable. No calcified gallstones. No gallbladder distention or wall edema. No intra- or extrahepatic biliary ductal dilation. PANCREAS: Unremarkable. No focal cystic or solid mass. SPLEEN: Unremarkable. Normal size without focal cystic or solid mass. ADRENALS: Unremarkable. No nodules. KIDNEYS AND URETERS: There are small nonobstructive renal calculi bilaterally, the largest calculus is seen on the left and measures 7 mm. There is no demonstrated ureteral calculus or hydronephrosis. Normal renal size and position. STOMACH AND BOWEL: There are postsurgical changes in the colon with anastomotic site at the level of the mid transverse colon. As seen on series 3, axial images 42-57, there is a 5.9 x 7.9 x 4.6 cm mass contiguous with the posterior aspect of the colon at the anastomotic site. There is corresponding increased metabolic activity on the CT PET scan. There appears to be liquid within the mass, which may represent tumor necrosis. There are bubbles of air, which may indicate fistulous connection with the adjacent colon. Infection with gas producing bacteria would be a less likely possible etiology. On the February 13 exam, this mass measured 6.6 x 9.3 x 6.9 cm. No focal inflammatory change. PELVIS: APPENDIX: A normal appendix is seen on series 3, axial images 62-72. BLADDER: Unremarkable. REPRODUCTIVE: Unremarkable as visualized. No mass. CHEST, ABDOMEN and PELVIS: INTRAPERITONEAL SPACE: Unremarkable. No ascites or other fluid collection. No free air. BONES/JOINTS: There is a right shoulder prosthesis. No suspicious lytic or blastic abnormality. SOFT TISSUES: There is a right inguinal hernia which contains fat, but no bowel. There is a broad-based periumbilical hernia which contains small bowel loops. There is no associated bowel obstruction or strangulation. VASCULATURE: There is mild atherosclerotic calcification thoracic aorta and abdominal aorta. LYMPH NODES: Unremarkable. No enlarged lymph nodes. TUBES, LINES AND DEVICES: There is a right internal jugular Port-A-Cath with its tip in the distal superior vena cava. CT/CT Chest, Abd, Pel w/Contrast IMPRESSION: 1. Redemonstration of a necrotic neoplastic mass contiguous with the posterior aspect of the transverse colon at the anastomotic site. There is modest interval decrease in size from previous CT scan. Bubbles of air within the mass may indicate fistulous connection with the adjacent colon. 2. No other evidence for masses or lymphadenopathy. No new abnormalities are identified. 3. Multiple chronic findings, as above. Electronically Signed: Jose Albarado MD at 6:57 EDT ,
[2023-07-09] MEDS: 0.9 % NaCl (Sterile) Posiflush 10 mL IV (14:05)
[2023-07-09 14:22] LABS: Absolute Lymphocyte Count 0.82 X10^3/uL (0.83-4.51); Absolute Neutrophil Count 2.4 X10^3/uL (2.0-7.7); Basophil# 0.04 X10^3/uL; Basophil% 0.9 % (0-1); Eosinophils% 2.3 % (0-5); Hematocrit 32.1 % (40-54); Hemoglobin 9.9 g/dL (13.0-16.5); Lymphocyte # 0.82 X10^3/ul (0.83-4.51); Lymphocyte % 19.2 % (19-41); Mean Corp Hgb Conc 30.8 g/dL (32-36); Mean Corpuscular Hgb 30.3 pg (27.0-32.0); Mean Corpuscular Volume 98.2 fL (80-94); Mean Platelet Vol. 9.9 fl (6.2-12.0); Monocyte# 0.84 X10^3/uL; Monocyte% 19.6 % (0-10); NRBC Flagged by Analyzer 0 % (0-5); Neutrophil # 2.42 X10^3/uL (2.7-7.7); Neutrophil % 56.6 % (47-70); POSITIVE MORPHOLOGY YES; Platelet Count 101 K/mm3 (150-450); RBC Distribution Width CV 18.7 % (11.6-14.6); RBC Distribution Width SD 66.5 fl (35.1-43.9); Red Blood Count 3.27 M/mm3 (4.6-6.2); White Blood Count 4.3 K/mm3 (4.4-11.0)
[2023-07-09 14:23] LABS: Differential Indicated SCAN CRITERIA MET
[2023-07-09 14:43] LABS: Anisocytosis 1+
[2023-07-09 14:54] LABS: ALB/GLOB Ratio 0.9 RATIO (0.9-2.4); AST(SGOT) 30 U/L (15-37); Alanine Aminotransfer ALT/SGPT 25 U/L (16-61); Alkaline Phosphatase 100 U/L (45-117); Anion Gap 6 (5-15); BUN 12 mg/dL (7-18); BUN/Creat Ratio 12.7 RATIO (10-20); Calcium,Total 8.6 mg/dL (8.5-10.1); Chloride 106 mmol/L (98-107); Creatinine, Serum 0.94 mg/dL (0.70-1.30); EST Glomerular Filtration Rate 82 mL/min (>60); Est Glom Filt Rate - Afr Amer 99 mL/min (>60); Estimated Creatinine Clearance 71.66 ml/min; Globulin 3.4 g/dL (2.2-4.2); Glucose 99 mg/dL (74-106); Potassium 3.8 mmol/L (3.5-5.1); Protein, Total 6.4 g/dL (6.4-8.2); Sodium Level 136 mmol/L (136-145)
[2023-07-11 04:07] LABS: Carcinoembryonic Antigen 13.3 ng/mL (0.0-4.7)
== END | disposition home or self-care (01) ==
LOC: CT 13:46
PROVIDERS: PCP Family Medicine; Referring Provider Internal Medicine Hematology & Oncology; Visit Provider Internal Medicine Hematology & Oncology
DX: C18.4 Malignant neoplasm of transverse colon (principal)
CPT/HCPCS: 71260; 74177; 80053; 82378; 85025; Q9967; A4216

== ENCOUNTER 2023-10-04 18:26 | Emergency (ER) | payer MEDICARE, OTHER, SELFPAY ==
[2023-10-04 18:28] VITALS: BP 136/70; PULSE 81; RESP 22; TEMP 38.2; O2SAT 96; BMI 29.4
--- NOTE | 2023-10-04 19:38 | EX.ED.DYSGE1 ---
HPI History of Present Illness Chief Complaint: Wound Informant: patient and family Narrative Narrative: 83-year-old male currently undergoing treatment for colon cancer. Patient states that he completed chemotherapy locally with [facility]. Last he went to [facility] in [place] for partial colon resection. They are they are able to take out part of the large intestine unfortunately the tumor had eroded and involved the small intestine near a artery. He states they were not able to remove that part. He has a wound VAC and drains in place. He was discharged on Sunday after a rather uneventful postoperative course. He was taking metronidazole and cefdinir. This prescription ended approximately 48 hours ago. Today around noon he developed the fever. He also noted some rhinorrhea which is subsequently resolved. Visiting nurse thought his lungs sounded crackly last night and tonight. He denies any urinary symptoms. He was having regular bowel movements but discontinued his Colace but started that up again today due to some constipation. No vomiting. He denies any significant abdominal pain. No urinary symptoms. No change in the drain output. PFSH PFS Medical History Abdominal pain Abdominal wall bulge Acid reflux Alcohol use Cancer Cancer of transverse colon Constipation Encounter for chemotherapy management Encounter for education Hepatitis History of echocardiogram History of irregular heartbeat History of kidney stones History of stress test Hoarseness Hypertension Iron deficiency anemia Leg cramps Low iron Nephrolithiasis Neuropathy Non-smoker Pseudogout Ventral hernia Wears glasses Wears partial dentures Home Medications lisinopril 5 mg tablet 5 mg PO DAILY 11/03/21 [History Last Taken 03/15/23] lidocaine-prilocaine 2.5 %-2.5 % topical cream 1 applic topical ONCE PRN port access 30 days #30 grams 03/13/23 [Rx Last Taken Unknown] omeprazole 20 mg capsule,delayed release 20 mg PO DAILY PRN reflux #30 caps 03/13/23 [Rx Last Taken Unknown] ondansetron 8 mg disintegrating tablet 8 mg PO Q8H PRN nausea and vomiting #30 tabs 03/13/23 [Rx Last Taken Unknown] potassium chloride 20 mEq tablet,extended release 20 meq PO DAILY 7 days #7 tabs 05/14/23 [Rx Last Taken Unknown] Fluad Quad [id number](65yr up)(PF) 60 mcg (15 mcg x 4)/0.5mL IM syringe (flu vac 2022 [id number](PF)) 60 mcg IM ONCE #0.5 mL 08/23/23 [Clinic Last Taken Unknown] Allergy/AdvReac Type Severity Reaction Status Date / Time No Known Allergies Allergy Verified 08/23/23 09:02 Family History Father Heart disease Colon cancer CVA (cerebral vascular accident) CAD (coronary artery disease) Mother ALS (amyotrophic lateral sclerosis) Surgical History h/o reverse total shoulder History of bilateral carpal tunnel release History of colonoscopy (06/25/20) History of colonoscopy (~04/2021) History of lithotripsy History of tonsillectomy history ORIF left ankle Hx of arthroscopy of shoulder Hx of colectomy (07/14/20) Social History Smoking Status: Never smoker second hand exposure: No alcohol intake: current details: beer 4 times a week substance use type: does not use caffeine: Yes what type of physical activity do you participate in: none frequency: does not exercise shahnaz/sikhism: Pentecostalism seatbelt use: always do you feel safe at home: Yes ROS ROS ED Constitutional Constitutional ED: Reports fever(s); Denies chills or weight loss Eyes Eyes: Denies change in vision or diplopia ENT ENT ED: Reports rhinorrhea; Denies ear pain or sore throat Cardiovascular Cardiovascular: Denies chest pain, orthopnea, palpitations or racing heartbeat Respiratory/Chest Respiratory/Chest: Denies cough, dyspnea or orthopnea Gastrointestinal Gastrointestinal: Denies abdominal pain, diarrhea, nausea or vomiting Genitourinary Genitourinary ED: Denies dysuria, hematuria or urinary frequency Musculoskeletal Musculoskeletal: Denies arthralgias, back pain, myalgias or neck pain Integumentary Denies abscess or rash Neurologic Neurologic: Denies headache(s) or weakness Psychiatric Psychiatric: Denies anxiety, depression, suicidal ideation or suicidal thoughts Endocrine Endocrinology: Denies polydipsia, polyphagia or polyuria Allergic/Immunologic Allergic/Immunologic ED: Denies mouth swelling, tongue swelling or urticaria EXAM Physical Exam Const Vital Signs: 10/04/23 18:28 10/04/23 20:00 10/04/23 20:27 Temperature 100.8 F H 100.8 F H Temperature Source Temporal Temporal Pulse Rate 81 81 93 Respiratory Rate 22 H 22 H 14 Blood Pressure 136/70 H 136/70 H 132/56 H Blood Pressure Mean 92 92 81 Pulse Ox 96 96 94 Oxygen Delivery Method Room Air Room Air 10/04/23 22:27 Temperature Temperature Source Pulse Rate 95 Respiratory Rate 18 Blood Pressure 135/62 H Blood Pressure Mean 86 Pulse Ox 95 Oxygen Delivery Method Room Air Positive well nourished and well developed General Appearance ED: well developed HEENT Reports normocephalic, head/scalp atraumatic and moist mucous membranes Eyes PERRL and EOMs intact bilaterally Neck no lymphadenopathy, supple and no JVD Resp normal respiratory effort and clear to auscultation bilaterally Cardio regular rate, regular rhythm and no murmurs GI GI Narrative: There is approximately 25 to 30 cc of serosanguineous fluid in the grenade. This appears normal per the patient. He has a wound VAC in place. The abdomen is not significantly tender outside of normal postoperative discomfort. Palpation: soft; Negative for tender or guarding Back/Spine no CVA tenderness and normal ROM Extremity normal to inspection General Extremety ED: Negative for edema General Extremity: Negative for edema Neuro oriented x3 and CN's II-XII intact bilaterally Sensorium / Orientation: alert Motor Exam: strength 5/5 throughout Psych mental status grossly normal Mood & Affect: Negative for depressed or tearful Skin no rashes or lesions noted and no wounds MDM MDM MDM Narrative Medical decision making narrative: My independent interpretation of the plain film of the chest is bibasilar atelectasis. White count 4.5 hemoglobin 9.3. Platelet count 210. BMP showed a glucose of 121. Normal INR. Lactic is normal. Liver enzyme normal. Lipase 48 urinalysis shows no overt infection. COVID test is positive. Patient received Tylenol and IV fluids. I spoke with the patient and his family about the above results. We talked about possibility of treating him with a COVID-19 medication like Paxlovid but after shared decision making we will treat symptomatically as his symptoms are very mild. We talked about his chest x-ray and the atelectatic changes would recommend deep breathing. He does not have an incentive spirometer at home but believes he can do without 1. Patient to monitor for changes return if worsening or concerns. History & Record Review Discussion w/independent historian: Patient and Family Additional record(s) reviewed:: Prior outpatient record and Prior labs Lab Data Attestation: I reviewed the patient's lab results. Labs: Laboratory Results - last 24 hr 10/04/23 10/04/23 19:45 21:43 WBC 4.5 RBC 3.45 L Hgb 9.3 L Hct 30.6 L MCV 88.7 MCH 27.0 MCHC 30.4 L RDW Std Deviation 54.4 H RDW Coeff of Carolyn 17.0 H Plt Count 210 MPV 9.3 Immature Gran % (Auto) 4.900 H Neut % (Auto) 75.4 H Lymph % (Auto) 6.2 L [place] % (Auto) 10.4 H Eos % (Auto) 2.0 Baso % (Auto) 1.1 H Absolute Neuts (auto) 3.4 Absolute Lymphs (auto) 0.28 L Nucleated RBC % 0 Differential Comment SEE COMMENT Platelet Estimate ADEQUATE RBC Morphology N CHROM Anisocytosis RARE PT 16.1 H INR 1.3 APTT 34.9 Sodium 137 Potassium 4.0 Chloride 105 Carbon Dioxide 25.0 Anion Gap 7 BUN 10 Creatinine 0.90 Estim Creat Clear Calc 74.84 Est GFR (MDRD) Af Amer 105 Est GFR (MDRD) Non-Af 86 BUN/Creatinine Ratio 11.1 Glucose 121 H Lactic Acid 1.0 Calcium 8.6 Total Bilirubin 0.60 Direct Bilirubin 0.16 AST 19 ALT 19 Alkaline Phosphatase 111 Total Protein 6.5 Albumin 2.8 L Globulin 3.7 Lipase 48 Urine Color Yellow Urine Clarity Clear Urine pH 6.0 Ur Specific [place] 1.025 Urine Protein 15 H Urine Glucose (UA) Normal Urine Ketones Negative Urine Occult Blood 10 H Urine Nitrite Negative Urine Bilirubin Negative Urine Urobilinogen Normal Ur Leukocyte Esterase Negative Urine RBC 0 SEEN Urine WBC 0-5 SEEN Ur Squamous Epith Cells 0-5 SEEN Amorphous Sediment 1+ URATE Urine Bacteria 0 SEEN Urine Mucus 0 SEEN Radiography Diagnostic Testing: Clinical Impression(s) from Imaging Studies Chest X-Ray 10/04/23 20:10 IMPRESSION: Basilar atelectasis. Electronically Signed: Rajinder Hope DO at 21:35 EST Reading Location ID and State: [facility] / [place] Tel [phone], Service support , Discharge Plan Triage Chief Complaint: Wound ED Provider: Lavon Ramirez Dx/Rx/DC Orders Clinical Impression: COVID-19, Cancer of transverse colon Instructions: Coronavirus Disease 2019 (COVID-19): Caring for Yourself or Others Prescriptions: No Action lisinopril 5 mg tablet 5 mg PO DAILY lidocaine-prilocaine 2.5-2.5 % cream 1 applic topical ONCE PRN (Reason: port access) 30 Days Qty: 30 2RF ondansetron 8 mg tablet,disintegrating 8 mg PO Q8H PRN (Reason: nausea and vomiting) Qty: 30 2RF omeprazole 20 mg capsule,delayed release(DR/EC) 20 mg PO DAILY PRN (Reason: reflux) Qty: 30 2RF Fluad Quad (65y up)(PF) 60 mcg (15 mcg x 4)/0.5 mL syringe 60 mcg IM ONCE Qty: 0.5 0RF potassium chloride 20 mEq tablet extended release 20 meq PO DAILY 7 Days Qty: 7 0RF Primary Care Provider: Luciano Jaimes Referrals: Luciano Jaimes MD [Primary Care Provider] - As Needed Disposition Disposition: Home, Self Care Discharge Date/Time: 10/04/23 22:43
[2023-10-04 20:00] VITALS: BP 136/70; PULSE 81; RESP 22; TEMP 38.2; O2SAT 96
[2023-10-04 20:06] LABS: Absolute Lymphocyte Count 0.28 X10^3/uL (0.83-4.51); Absolute Neutrophil Count 3.4 X10^3/uL (2.0-7.7); Basophil# 0.05 X10^3/uL; Basophil% 1.1 % (0-1); Eosinophil# 0.09 X10^3/uL; Hematocrit 30.6 % (40-54); Hemoglobin 9.3 g/dL (13.0-16.5); Lymphocyte # 0.28 X10^3/ul (0.83-4.51); Lymphocyte % 6.2 % (19-41); Mean Corp Hgb Conc 30.4 g/dL (32-36); Mean Corpuscular Volume 88.7 fL (80-94); Mean Platelet Vol. 9.3 fl (6.2-12.0); Monocyte# 0.47 X10^3/uL; Monocyte% 10.4 % (0-10); NRBC Flagged by Analyzer 0 % (0-5); Neutrophil # 3.39 X10^3/uL (2.7-7.7); Neutrophil % 75.4 % (47-70); POSITIVE DIFFERENTIAL YES; Platelet Count 210 K/mm3 (150-450); RBC Distribution Width SD 54.4 fl (35.1-43.9); Red Blood Count 3.45 M/mm3 (4.6-6.2); White Blood Count 4.5 K/mm3 (4.4-11.0)
[2023-10-04] MEDS: 0.9% Normal Saline (1000mL) 1,000 ML 1000 ML IV (20:07)
[2023-10-04] MEDS: Acetaminophen 500 MG Tablet 1000 MG PO (20:08)
--- NOTE | 2023-10-04 20:10 | RAD_ITS ---
INDICATION: fever EXAMINATION/TECHNIQUE: X-RAY - XR Chest 1 View COMPARISON: March 15, 2023 FINDINGS: LINES/DEVICES: There is a stable right-sided venous ports. LUNGS: No consolidation, edema or effusion. Basilar atelectasis. No pneumothorax. MEDIASTINUM AND CARDIOVASCULAR STRUCTURES: Cardiac silhouette not enlarged. Central airways and mediastinal contour are unremarkable. BONES AND SOFT TISSUES: Degenerative vertebral changes. RAD/Chest 1 View (Portable) IMPRESSION: Basilar atelectasis. Electronically Signed: Rajinder Hope DO at 21:35 EST ,
[2023-10-04 20:14] LABS: Differential Indicated SCAN CRITERIA MET
[2023-10-04 20:18] LABS: International Normalized Ratio 1.3; Prothrombin Time (Protime)PT. 16.1 SECONDS (11.7-14.9)
[2023-10-04 20:19] LABS: Partial Thromboplast Time 34.9 Seconds (24.1-36.2)
[2023-10-04 20:24] LABS: AST(SGOT) 19 U/L (15-37); Alanine Aminotransfer ALT/SGPT 19 U/L (16-61); Albumin, Serum 2.8 g/dL (3.2-5.0); Alkaline Phosphatase 111 U/L (45-117); Anion Gap 7 (5-15); BUN 10 mg/dL (7-18); BUN/Creat Ratio 11.1 RATIO (10-20); Bilirubin, Direct 0.16 mg/dL (0.00-0.30); Calcium,Total 8.6 mg/dL (8.5-10.1); Chloride 105 mmol/L (98-107); EST Glomerular Filtration Rate 86 mL/min (>60); Est Glom Filt Rate - Afr Amer 105 mL/min (>60); Estimated Creatinine Clearance 74.84 ml/min; Globulin 3.7 g/dL (2.2-4.2); Glucose 121 mg/dL (74-106); Lipase 48 U/L (13-75); Protein, Total 6.5 g/dL (6.4-8.2); Sodium Level 137 mmol/L (136-145)
[2023-10-04 20:25] LABS: Anisocytosis RARE; Platelet Estimate ADEQUATE (ADEQ); Red Cell Morphology N CHROM NORMAL (NORM C&C)
[2023-10-04 20:27] VITALS: BP 132/56; PULSE 93; RESP 14; O2SAT 94
[2023-10-04 21:47] LABS: Bacteria 0 SEEN /hpf (None Seen); Mucous, Urine 0 SEEN /hpf (<or=2+); Red Blood Cells-Urine 0 SEEN /hpf (0-5)
[2023-10-04 21:51] LABS: Color, Urine Yellow (Yellow); Glucose, Dipstick Normal (Normal); Ketone-Dipstick Negative (Negative); Leukocyte Esterase-Dipstick Negative /ul (Negative); Nitrite-Dipstick Negative (Negative); Occult Blood-Urine 10 /ul (Negative); Protein-Dipstick 15 mg/dl (Negative); Specific Gravity, Urine 1.025 (1.002-1.030); Urine Bilirubin Dipstick Negative (Negative); Urine Clarity Clear (Clear); Urine Urobilinogen Normal (Normal)
[2023-10-04 21:58] LABS: Amorphous Sediment 1+ URATE; Squamous Epithelial Cells - UA 0-5 SEEN /hpf (0-5); White Blood Cells 0-5 SEEN /hpf (0-5)
[2023-10-04 22:27] VITALS: BP 135/62; PULSE 95; RESP 18; O2SAT 95
== END 2023-10-04 22:43 | disposition home or self-care (01) ==
PROVIDERS: Emergency Provider Emergency Medicine; PCP Family Medicine; Visit Provider Emergency Medicine
DX: U07.1 COVID-19 (principal); C18.4 Malignant neoplasm of transverse colon; K59.00 Constipation, unspecified
CPT/HCPCS: 71045; 80048; 80076; 81001; 83605; 83690; 85025; 85610; 85730; 87040; 87428; 96360; 96361; 99285; J7030; A4216

== ENCOUNTER 2024-01-03 12:21 | Emergency (ER) | payer MEDICARE, OTHER, SELFPAY ==
[2024-01-03 12:23] VITALS: PULSE 107; RESP 16; TEMP 36.9; O2SAT 96; BMI 26.4
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
--- NOTE | 2024-01-03 13:00 | RAD_ITS ---
STUDY: X-RAY CHEST REASON FOR EXAM: Male, 83 years old. New onset A-fib, dyspnea TECHNIQUE: PA and lateral views of the chest. COMPARISON: Comparison is made with prior study dated October 04, 2023. FINDINGS: A right-sided portacatheter is seen with the tip at the junction of the superior vena cava and right atrium. EKG electrodes are seen. Hyperinflation. The lungs are clear. There is no demonstrated pleural abnormality. Normal size heart. Normal mediastinum and rafael. Normal visualized pulmonary arteries. There is atherosclerotic calcification of the aortic arch with tortuosity. There are diffuse degenerative changes of the visualized thoracic spine. There is evidence of a right reverse shoulder replacement. There is no demonstrated abnormality of the visualized soft tissue structures of the upper abdomen. RAD/Chest PA and Lateral IMPRESSION: Hyperinflation. The lungs are clear. Electronically Signed: Willem Valles MD at 13:25 EST ,
[2024-01-03 13:10] LABS: Absolute Lymphocyte Count 0.74 X10^3/uL (0.83-4.51); Absolute Neutrophil Count 5.7 X10^3/uL (2.0-7.7); Basophil# 0.05 X10^3/uL; Basophil% 0.6 % (0-1); Eosinophil# 0.09 X10^3/uL; Eosinophils% 1.2 % (0-5); Hematocrit 34.5 % (40-54); Hemoglobin 10.8 g/dL (13.0-16.5); Lymphocyte # 0.74 X10^3/ul (0.83-4.51); Lymphocyte % 9.6 % (19-41); Mean Corp Hgb Conc 31.3 g/dL (32-36); Mean Corpuscular Hgb 27.6 pg (27.0-32.0); Mean Corpuscular Volume 88.2 fL (80-94); Mean Platelet Vol. 9.7 fl (6.2-12.0); Monocyte# 1.05 X10^3/uL; Monocyte% 13.6 % (0-10); NRBC Flagged by Analyzer 0 % (0-5); Neutrophil # 5.74 X10^3/uL (2.7-7.7); Neutrophil % 74.4 % (47-70); Platelet Count 203 K/mm3 (150-450); RBC Distribution Width CV 17.3 % (11.6-14.6); RBC Distribution Width SD 55.9 fl (35.1-43.9); Red Blood Count 3.91 M/mm3 (4.6-6.2); White Blood Count 7.7 K/mm3 (4.4-11.0)
[2024-01-03] MEDS: APIXABAN 5 MG TABLET PO (13:12)
[2024-01-03] MEDS: Metoprolol Tartrate 5 MG/5 ML Vial IV (13:12)
--- NOTE | 2024-01-03 13:24 | EKG12_ITS ---
Test Reason : CP Blood Pressure : / mmHG Vent. Rate : 110 BPM Atrial Rate : 000 BPM P-R Int : 000 ms QRS Dur : 072 ms QT Int : 320 ms P-R-T Axes : 000 -35 067 degrees QTc Int : 433 ms Atrial fibrillation with rapid ventricular response Left axis deviation Nonspecific ST abnormality Abnormal ECG Confirmed by Chuck Alcantar ([id number]), writer editor CHAMP MALONE ([id number]) on 01/04/2024 9:46:21 AM Referred By: Otis hSer Confirmed By:Chuck Alcantar
[2024-01-03 13:27] LABS: Anion Gap 6 (5-15); BUN 20 mg/dL (7-18); BUN/Creat Ratio 18.7 RATIO (10-20); Calcium,Total 9.2 mg/dL (8.5-10.1); Chloride 109 mmol/L (98-107); Creatinine, Serum 1.07 mg/dL (0.70-1.30); EST Glomerular Filtration Rate 70 mL/min (>60); Est Glom Filt Rate - Afr Amer 85 mL/min (>60); Estimated Creatinine Clearance 62.95 ml/min; Glucose 131 mg/dL (74-106); Potassium 3.6 mmol/L (3.5-5.1); Sodium Level 141 mmol/L (136-145); Thyroid Stim Hormone (TSH) 2.63 uIU/mL (0.358-3.74); Troponin-I HS 37 pg/mL (3.0-78.0)
[2024-01-03 14:22] VITALS: BP 120/83; PULSE 92; PULSE 94; RESP 16; TEMP 36.4; O2SAT 98; O2SAT 99
[2024-01-03] MEDS: 0.9% Saline Lock 10 ML Syringe IV (14:39)
== END 2024-01-03 14:46 | disposition home or self-care (01) ==
PROVIDERS: Emergency Provider Emergency Medicine; PCP Family Medicine; Visit Provider Emergency Medicine
DX: I48.91 Unspecified atrial fibrillation (principal); C18.9 Malignant neoplasm of colon, unspecified; I10 Essential (primary) hypertension; G62.9 Polyneuropathy, unspecified; D50.9 Iron deficiency anemia, unspecified
CPT/HCPCS: 36591; 71046; 80048; 84443; 84484; 85025; 93005; 99283; A4216

== ENCOUNTER → 2024-01-03 | Outpatient (CLI) | payer MEDICARE, OTHER, SELFPAY ==
--- NOTE | 2024-01-03 12:00 | EKG12_ITS ---
Test Reason : Blood Pressure : / mmHG Vent. Rate : 109 BPM Atrial Rate : 117 BPM P-R Int : 000 ms QRS Dur : 070 ms QT Int : 328 ms P-R-T Axes : 000 -50 059 degrees QTc Int : 441 ms Atrial fibrillation Left axis deviation Low voltage QRS Septal infarct , age undetermined Abnormal ECG Confirmed by Chuck Alcantar ([id number]), news videotape editor CHAMP MALONE ([id number]) on 01/04/2024 9:26:12 AM Referred By: Otis Sher Confirmed By:Chuck Alcantar
--- OUTSIDE RECORDS SUMMARY | 2024-01-03 18:07 | XMS RPT_ITS | CCD ---
Author Name Unknown Address [address] [place] [address] Organization [facility] Care Team Providers Care Inspector Plumbing Name Role Phone [facility]os [facility] Otis S Unavailable Carrlol GALLO, Kenya Unavailable Unavailable Fiona CRONIN, Luciano Wilson Primary Care Provider SELF, SELF Referring Unavailable LUCIANO HUERTAS Primary Care Unavailable LEIDA LUI Attending Unavailable LEIDA LUI Attending Unavailable FIONA, LUCIANO Wilson Primary Care Unavailable OTIS SHER Referring Unavailable FIONA, LUCIANO Wilson Primary Care Unavailable FIONA, LUCIANO Wilson Primary Care Unavailable BERNARDO CARLOS Referring Unavailable FIONA, LUCIANO Wilson Primary Care Unavailable LEIDA LUI Referring Unavailable PHYLLIS DOLAN Attending Unavailable FIONA, LUCIANO Wilson Primary Care Unavailable LEIDA LUI Referring Unavailable PHYLLIS DOLAN Attending Unavailable FIONA, LUCIANO Wilson Primary Care Unavailable LEIDA LUI Admitting Unavailable CONSULT, ANESTHESIA PAIN MED Consulting Genet vailable FIONA, LUCIANO Wilson Primary Care Unavailable LEIDA LUI Attending Unavailable LEIDA LUI Referring Unavailable FIONA, LUCIANO Wilson Referring Unavailable LEIDA LUI Attending Unavailable LUCIANO HUERTAS Primary Care Unavailable FIONA, LUCIANO Wilson Primary Care Unavailable FIONA, LUCIANO Wilson Referring Unavailable LEIDA LUI Attending Unavailable Medications Current Medications Medication Drug Class(es) Dates Sig (Normalized) Sig (Original) acetaminophen 325 mg oral tablet (4 sources) Start: 10-01-2023 take 2 tablets by mouth every six hours as needed Acetaminophen 325 MG tablet Take 2 tablets by mouth every 6 hours as needed for mild or moderate Pain. 15 tablet 1 10/01/2023 Active Completed/Discontinued Medications Medication Drug Class(es) Dates Sig (Normalized) Sig (Original) bisacodyl 5 mg delayed release oral tablet (2 sources) Stimulant Laxative Start: 08-28-2023 End: 10-01-[address] Take all 4 tablets at 11am the day before surgery 4 tablet 0 08/28/2023 10/01/2023 Discontinued (Stop Taking at Discharge) calcium chloride 0.0014 meq/ml / potassium chloride 0.004 meq/ml / sodium chloride 0.103 meq/ml / sodium lactate 0.028 meq/ml injectable solution (2 sources) Start: 09-27-2023 End: 09-27-2023 Lactated ringers IV solution 1,000 mL Problems Active Problems Problem Classification Problem Date Documented Da te Episodic/Chronic Cancer of colon (11 sources) Malignant tumor of transverse colon; Translations: [Malignant neoplasm of transverse colon] Onset: 03-08-2023 08-10-2023 Chronic Essential hypertension (3 sources) Essential hypertension; Translations: [Essential (primary) hypertension] Onset: 09-13-2023 09-14-2023 Chronic Residual codes; unclassified (2 sources) Other specified health status; Translations: [Other specified health status] Onset: 09-18-2023 Episodic Past or Other Problems Problem Classification Problem Date Documented Da te Episodic/Chronic Fracture of upper limb (4 sources) Fracture of upper end of humerus; Translations: [Unspecified fracture of upper end of unspecified humerus, initial encounter for closed fracture] Onset: 01-28-2015 01-28-2015 Episodic Results Test Name Value Interpretation Reference Range Facil ity Vital Signs Date Time Vital Sign Value Performing Clinician Faci lity 10-18-2023 14:43-0500 Body height 188 cm Leida Lui MD Work Phone: [facility] 10-18-2023 14:43-0500 Body mass index (BMI) [Ratio] 27.35 kg/m2 Leida Lui MD Work Phone: [facility] 10-18-2023 14:43-0500 Body weight 96.62 kg Leida Lui MD Work Phone: [facility] 10-18-2023 14:43-0500 Diastolic blood pressure 93 mm[Hg] Leida Lui MD Work Phone: [facility] 10-18-2023 14:43-0500 Heart rate 73 /min Leida Lui MD Work Phone: 2(717)338-591702 [place] [address] 10-18-2023 14:43-0500 Systolic blood pressure 150 mm[Hg] Leida Lui MD Work Phone: 9(949)364-673202 [place] [address] 10-01-2023 11:56-0500 Body temperature 97.7 [degF] Leida Lui MD Work Phone: 0(774)[phone] [place] [address] 10-01-2023 11:56-0500 Diastolic blood pressure 62 mm[Hg] Leida Lui MD Work Phone: 3(610)964-791802 [place] [address] 10-01-2023 11:56-0500 Heart rate 56 /min Leida Lui MD Work Phone: 7(654)356-358202 [place] [address] 10-01-2023 11:56-0500 Respiratory rate 16 /min Leida Lui MD Work Phone: 0(988)[phone] [place] [address] 10-01-2023 11:56-0500 SaO2% (BldA) [Mass fraction] 100 % Leida Lui MD Work Phone: 1(575)[phone] [address] 10-01-2023 11:56-0500 Systolic blood pressure 127 mm[Hg] Leida Lui MD Work Phone: 2(821)[phone] [address] 09-27-2023 15:00-0500 Body height 188 cm Leida Lui MD Work Phone: 1(782)879-975602 [place] [address] 09-27-2023 15:00-0500 Body mass index (BMI) [Ratio] 27.31 kg/m2 Leida Lui MD Work Phone: 4(440)[phone] [address] 09-27-2023 15:00-0500 Body weight 96.53 kg Leida Lui MD Work Phone: [facility] 09-13-2023 14:09-0400 Body height 188 cm Phyllis Dolan DO Work Phone: [facility] 09-13-2023 14:09-0400 Body mass index (BMI) [Ratio] 28.53 kg/m2 Phyllis Dolan DO Work Phone: [facility] 09-13-2023 14:09-0400 Body temperature 98.2 [degF] Phyllis Dolan DO Work Phone: [facility] 09-13-2023 14:09-0400 Body weight 100.79 kg Phyllis Dolan DO Work Phone: [facility] 09-13-2023 14:09-0400 Diastolic blood pressure 66 mm[Hg] Phyllis Dolan DO Work Phone: [facility] 09-13-2023 14:09-0400 Heart rate 83 /min Phyllis Dolan DO Work Phone: [facility] 09-13-2023 14:09-0400 Respiratory rate 18 /min Phyllis Dolan DO Work Phone: [facility] 09-13-2023 14:09-0400 SaO2% (BldA) [Mass fraction] 98 % Phyllis Dolan DO Work Phone: [facility] 09-13-2023 14:09-0400 Systolic blood pressure 148 mm[Hg] Phyllis Dolan DO Work Phone: [facility] 08-10-2023 13:00-0400 Body height 188 cm Leida Lui MD Work Phone: [facility] 08-10-2023 13:00-0400 Body mass index (BMI) [Ratio] 28.81 kg/m2 Leida Lui MD Work Phone: [facility] 08-10-2023 13:00-0400 Body weight 101.79 kg Leida Lui MD Work Phone: [facility] 08-10-2023 13:00-0400 Diastolic blood pressure 74 mm[Hg] Leida Lui MD Work Phone: [facility] 08-10-2023 13:00-0400 Heart rate 61 /min Leida Lui MD Work Phone: [facility] 08-10-2023 13:00-0400 Systolic blood pressure 158 mm[Hg] Leida Lui MD Work Phone: [facility] Encounters Encounter Date Encounter Type Care Provider Facility Start: 10-18-2023 ambulatory LUCIANO [facility] Facility :[facility] Start: 10-18-2023 End: 11-07-2023 Postop follow up visit related to original px Leida Lui MD Work Phone: [facility] Procedures Date Procedure Procedure Detail Performing Clinician Start: 10-01-2023 Assay of magnesium Gordon Dave MD Work Phone: Start: 09-30-2023 Assay of magnesium Gordon Dave MD Work Phone: Start: 09-29-2023 Assay of magnesium Gordon Dave MD Work Phone: Start: 09-29-2023 Blood count complete automated Kiesha Dave MD Work Phone: Start: 09-28-2023 Assay of magnesium Gordon Dave MD Work Phone: Start: 09-27-2023 End: 09-27-2023 Colectomy partial w/anastomosis Leida Lui MD Work Phone: Start: 09-13-2023 Antibody screen Phyllis Dolan DO Work Phone: Start: 09-13-2023 Antibody screen SELF SE LF Plan of Treatment Date Care Activity Detail Author Start: 10-18-2023 End: 10-18-2023 Patient encounter procedure 10/18/2023 2:45 PM EST Office Visit [facility] [address] [place] [address] Leida Lui MD [address] [place] [address] [facility] Start: 09-27-2023 End: 09-27-2023 Colectomy partial w/anastomosis COLECTOMY PARTIAL OPEN RIGHT Malignant neoplasm of transverse colon 09/27/2023 9:45 AM EST [facility] Start: 09-27-2023 End: 09-27-2023 Evaluation and management of inpatient 09/27/2023 9:45 AM EST - 09/27/2023 12:15 PM EST Surgery [facility] [address] [place] [address] Leida Lui MD [address] [place] [address] COLECTOMY PARTIAL OPEN RIGHT [facility] Immunizations Immunization Date Immunization Notes Care Provider Fa cility 10-20-2021 influenza virus vaccine, unspecified formulation Leida Lui MD Work Phone: [facility] 01-28-2015 influenza, seasonal, injectable Leida Lui MD Work Phone: [facility] Payers Date Payer Category Payer Medicare MEDICARE MEDICAR E A AND B [id number] 2007-Present [address] [place] [address] [id number] 2007 Medicare [id number] 2007 Private Health Insurance [id number] 2007 Unknown GENERIC PAYOR ME DICARE SUPPLEMENT [id number] 2007-Present [phone] [address] [address] [place] [address] [id number] 1942 Unknown [id number] [id number]. 2.594 1942 Unknown [id number] [id number]. 2.594 1942 Unknown [id number] 2.16.840.1.861941.3.579. 2.594 1942 Unknown [id number] 2.16.840.1.788346.3.579. 2.594 1942 Unknown [id number] 2.16.840.1.117849.3.579. 2.594 1942 Unknown [id number] 2.16.840.1.653482.3.579. 2.594 1942 Unknown [id number] 2.16.840.1.295225.3.579. 2.594 1942 Unknown [id number] 2.16.840.1.042651.3.579. 2.594 1942 Unknown [id number] 2.16.840.1.943329.3.579. 2.594 1942 Unknown [id number] 2.16.840.1.639467.3.579. 2.594 1942 Unknown [id number] [id number]. 2.594 1942 Unknown [id number] [id number]. 2.594 Social History Date Type Detail Facility Start: [facility]10[facility] Start: 08-10-2023 Tobacco use and exposure Smokeless tobacco non-user [facility] Start: 08-10-2023 End: 10-18-2023 Alcohol intake Current drinker of alcohol (finding) [facility] Start: 08-10-2023 End: 10-18-2023 Alcohol intake [facility] Start: 08-10-2023 End: 10-18-2023 Tobacco use panel [facility] Start: 03-08-2023 Alcohol Comment occasinally [facility] Start: 1940 Sex Assigned At Not on file O LYLE [facility] Medical Equipment Procedure Code Equipment Code Equipment Origin al Text Equipment Identifier Dates Humeral Stem 10mm [id number] Start: 01-29-2015 Clinical Notes 08-10-2023 to 10-18-2023 Leida Lui MD - 10/18/2023 2:45 PM ESTNursing Notes - Melissa Hummel RN - 10/01/2023 4:03 PM ESTNursing Notes - Melissa Hummel RN - 10/01/2023 4:03 PM ESTDischarge InstructionsMedications Note Date & Type Note Facility 10-18-2023 History of Presen t illness Narrative CC: Chief Complaint Patient presents with Post Op Visit Post op visit, states doing better but it has been bad. HPI: 83 y.o. yo male presents for postop visit Doing OK. Has had a rough time overall and has had COVID post-op Exam BP (!) 150/93 Pulse 73 Ht 1.88 m (6' 2 ) Wt 96.6 kg (213 lb) BMI 27.35 kg/m Smoking Status Never Body mass index is 27.35 kg/m . General appearance: well and Abdomen: wounds well healed BRAD removed Other records reviewed: Pathology is still pending A/ doing well postop form ex lap and right colectomy. 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 It will not be resectable in the future P/ Continue f-up w med onc Follow-up: prn (Please note that portions of this note were completed with a voice recognition program. Efforts were made to edit the dictation but occasionally words are mis-transcribed.) documented in this encounter [facility] 10-01-2023 Nurse Note RN went over all discharge instructions with patient. RN discussed all wound/dressing care instructions, all follow-up appointments, and when to call should any concerns arise (wound infection symptoms, unrelieved pain, etc.). Patient stated understanding and all questions were answered at this time. RN completed patient teaching involving wound vac and BRAD drain. RN provided patient with drain and vac supplies. RN removed patient's peripheral IV per policy, catheter was intact. Patient left floor with all belongings, all wound/dressing care supplies, all prescriptions, and all discharge instructions in wheelchair with MERCERIZER. Patient will be driven home by daughter. [facility] 10-01-2023 Miscellaneous Notes RN went over all discharge instructions with patient. RN discussed all wound/dressing care instructions, all follow-up appointments, and when to call should any concerns arise (wound infection symptoms, unrelieved pain, etc.). Patient stated understanding and all questions were answered at this time. RN completed patient teaching involving wound vac and BRAD drain. RN provided patient with drain and vac supplies. RN removed patient's peripheral IV per policy, catheter was intact. Patient left floor with all belongings, all wound/dressing care supplies, all prescriptions, and all discharge instructions in wheelchair with MERCERIZER. Patient will be driven home by daughter. AVS and JF faxed to [facility]. Report called to Megan. 10/01/23 1420 Referral Information Arrived From operating room Final Discharge Planning Discharge Disposition Home with Home Health Services at Discharge DME;Fpc Final DME Other (comment) (wound vac supplies) CM/SW AVS Portion Completed Yes Community Agency Name(s) For Handoff [facility] Name For Handoff RN to please call report, fax AVS, JF and Discharge Summary Phone For Handoff [phone] Fax For Handoff [phone] Additional Community Agency Name(s) yes Plan Plan Home today with [facility] wound vac to midline incision and BRAD Drain Patient/Family In Agreement With Plan yes Transport Request Mode of Transfer Private Vehicle [facility] Inpatient PCRM Discharge Note Patient discussed in medical rounds for discharge to home today. Wound vac was approved through [facility] and [facility] arranged. PCRM met with the patient/family/spouse to discuss final discharge plan. Services for Discharge [facility] arranged for discharge; they will start care on Sunday for next vac change. Consults with Final Discharge Recommendations ET RN- wound vac dressing changed today, on MWF scheduled. Wound vac approved and delivered to beside. Lines/Tubes/Drains/Wounds/Supplie s Midline incision with wound vac- home vac delivered. Bedside RN to give wet to dry wound care supplies in case needed. BRAD Drain- will stay in until follow up. Medications No barriers anticipated in obtaining discharge medications. No prior authorizations anticipated. Reconciliation of medications to be completed by the medical team. Medications at the [facility], pt is ok with the cost. Durable Medical Equipment [employer] (Wound Vac Supplier) [phone]- phone for technical support, any service concerns, to reorder supplies, or to update your insurance information Choice Was Patient Choice Provided: Yes Transportation Transportation will be provided by family. Education Discharge education provided by the medical team and updated in the After Visit Summary. Follow Up(s) Any follow up requested by the medical team arranged. Appointments in the After Visit Summary. Future Appointments Provider Department Center 10/18/2023 2:45 PM Leida Lui [facility] Arrive at: Arrive to 1st Floor Registration [facility] Was Ambulatory PCRM added to the Care Team? No- No outpatient PCRM for this physician The PCRM has updated the patient's nurse Melissa regarding the final discharge plan. Risk of Readmission: 4.2 Category Reference: Low: 0% - 5% Medium - Low: 5.1% - 10% Medium - High: 10.1% - 16% High: 16.1% - 100% Readmission Risk Interventions Documented: Yes No other discharge needs have been identified at this time. This plan was developed in collaboration with the patient and caregiver/preferred decision maker. Patient and family are in agreement with final discharge plan. Please refer to AVS and medical record for additional information. Patient instructed to call with questions. PCRM will continue to follow with medical team for any additional discharge planning needs. ANN MARIE Chiang [phone] If any changes to this individualized plan of care during evening and weekend hours and assistance is needed, please page the applications scientist PCRM at [phone]. Consent Documentation The consent form was reviewed with the patient and family including the study purpose, study visit schedule, research-only procedures, reasonably foreseeable risks or discomforts, confidentiality of records, who to contact for answers to questions, and that participation is voluntary and the patient may withdraw from the study at any time. No protocol specific testing was performed before informed consent was obtained. All questions were answered. Patient acknowledged understanding of all study protocol requirements and accepts the risks described. The patient then signed [id number] consent and HIPAA Authorization. The patient was given a copy of the consent forms. Grain Blender: SHADE Almanzar Date of consent encounter: 10/01/23 Protocol number: [id number] Patient name: Ed Gandhi Name of research personnel that discussed the protocol with the patient: NAVNEET Landrum Original signed consent form(s) and HIPPA authorization form will be kept in the research chart [facility] nursing visit for NPWT dressing change: The patient was premedicated for pain. Removed all documented pieces of dressing, see details of wound below. Wound lagely unchanged, scattered areas of healthy bleeding granulation tissue. The periwound skin was cleansed with soap and water, allowed to dry, and Cavilon no sting barrier film was applied. Picture framed wound with drape. Gently packed wound with black foam, secured with drape. NPWT was initiated at 125 mmHg, no appreciable leaks. Patient tolerated dressing well. Next dressing change 10/03. Documentation: 10/01/23 1048 Wound Incision 09/27/23 1032 Abdomen Date First Assessed/Time First Assessed: 09/27/23 103 Primary Wound Type: Incision Present on Original Admission: No Location: Abdomen Dressing Status Changed/New Assessment Red;Yellow (adipose) Yvonne-Wound Assessment Intact Drainage Amount Scant Drainage Characteristics/Odor Serosanguinous $$ Dressing Applied other (see comments) Date Dressing Changed 10/01/23 Negative Pressure Wound Therapy 09/29/23 Abdomen Placement Date: 09/29/23 Location: Abdomen NPWT Unit Type subsequent non-disposable less than/equal to 50 sq cm Dressing Type foam, black Number of Foam Pieces Used 1 Cycle Continuous Target Pressure (mmHg) 125 Date Dressing Changed 10/01/23 Plan Last Date Seen 10/01/23 Images: Total time spent in assessment and treatment of patient: 30 Minutes. Kenya Walsh RN BSN, RN-BC, CWON BRAD drain intact and wound vac on and in working order. Problem: Patient Care Overview Goal: Plan of Care Review Outcome: Ongoing Goal: Individualization & Mutuality Outcome: Ongoing Goal: Discharge Needs Assessment Outcome: Ongoing Goal: Interdisciplinary Rounds/Family Conf Outcome: Ongoing Problem: Surgery Nonspecified (Adult) Goal: Signs and Symptoms of Listed Potential Problems Will be Absent, Minimized or Managed (Surgery Nonspecified) Description: Signs and symptoms of listed potential problems will be absent, minimized or managed by discharge/transition of care (reference Surgery Nonspecified (Adult) CPG). Outcome: Ongoing Problem: Patient Care Overview Goal: Plan of Care Review Outcome: Ongoing Flowsheets (Taken 09/29/20232029) Plan Of Care Reviewed With: patient Note: Continue PO antibiotics and continue ambulating before discharge Patient has completed 3 walks today with the use of a walker stand by assist. Pain is controlled with tylenol and ibuprophen. Remains on room air incision is clean dry and intact. Patient has had several small BMs today and has been urinating without difficulty. Patient has been eating his meals completely with out signs of nausea Images from the original note were not included. WOC/ET Nursing Consult/Evaluation Note Evaluated Ed Gandhi for wounds located on midline abdomen Description of wound: 09/29/23 1000 Wound Incision 09/27/23 1032 Abdomen Date First Assessed/Time First Assessed: 09/27/23 1032 Primary Wound Type: Incision Present on Original Admission: No Location: Abdomen Assessment Moist;[place];Red Yvonne-Wound Assessment Intact Non-staged Wound Description Full thickness Wound Length (cm) 16 cm Wound Width (cm) 3 cm Wound Surface Area (cm^2) 48 cm^2 Wound Depth (cm) 2.5 cm Wound Volume (cm^3) 120 cm^3 Treatment Applied other (see comment) (NPWT) Negative Pressure Wound Therapy 09/29/23 Abdomen Placement Date: 09/29/23 Location: Abdomen NPWT Unit Type initial non-disposable >50 sq cm $$ Initial Non- Disposable Unit > 50 initial non-disposable >50 sq cm Dressing Type foam, black;transparent dressing Number of Foam Pieces Used 1 Cycle Continuous Target Pressure (mmHg) 125 Date Dressing Changed 09/29/23 Canister Changed Yes Plan Current Plan NPWT;WOC to change Supportive Measures optimize nutrition WOCT Visit Frequency Mon;Wed;Fri Last Date Seen 09/29/23 Recommendation: Patient seen for wound vac application to midline abdominal wound as noted (see photo). Cleansed with saline and patted dry. Applied skin prep and drape to periwound skin prior to 1 piece of black foam. Continuous suction at 125mmhg and no leaks noted. Patient tolerated dressing change with minimal discomfort, declined premedication. Will follow. Bed Surface: Standard mattress Discharge Recommendations: Patient may continue care as described above at discharge. See image(s) below: Urban Skin Assessment: Urban Risk Assessment Sensory Perception: 3-->slightly limited Moisture: 4-->rarely moist Activity: 3-->walks occasionally Mobility: 3-->slightly limited Nutrition: 3-->adequate Friction and Shear: 3-->no apparent problem Urban Score: 19 Urban Score: Urban Score: 19 Body mass index is 27.31 kg/m . Total time spent in assessment and treatment of patient: 45 minutes LABS: Albumin Date Value Ref Range Status 09/13/2023 4.0 3.5 - 5.0 g/dL Final No results found for: PREALBUMIN RN notified of assessment and plan. Please page #[phone] or reconsult with any further needs. Libby Martinez RN Discharge Planning for Home Health Options for discharge have been discussed with patient and family. Patient and family agree the post hospital care needs will best met at home with home care services. Background Information/ Hospital Overview: 83 year old patient whoe had an exploratory laparotomy, recurrent colon cancer tumor resection of the right upper quadrant, right hemicolectomy with primary stapled ileocolonic anastomosis. BRAD drain placement to abscess cavity which was in the small bowel mesentery. Services needed: Fpc Fpc Needs Patient will be discharging with a wound vac and he has a BRAD drain in place Line / tube / drain type and care needed BRAD drain and wound vac Wound Care Wound team needs to evaluate the patient for wound vac recs Oxygen requirements / airway Room air Lab work: type and frequency N/A Specialty Medications: (chemotherapy / IV antibiotics / Hydration) N/A Additional information regarding needed services: N/A Teachable Caregiver / Family Support: Patient's daughters are teachable caregivers and will be willing to work with [facility] to obtain education if there are complex teaching services needed for the patient. Physician following for home care orders / phone: Dr. Leida Lui [phone] Outpatient PCRM / phone: Joanie Barron [phone] Lionel ENCARNACION RN,PCRM [phone] 09/29/23 0903 Referral Information Arrived From home or self-care Readmission Information Was patient readmitted within 30 Days? No Information Source Information Source patient Outpatient Providers Outpatient Providers Updated In IHIS Yes Contact Information Service Car Operator/SW Added to Care Team Yes This Microsoft Net Developer is Primary Service Car Operator/SW No Service Car Operator Name Lionel Sinclair Service Car Operator's Phone Number [phone] Social Work Contact Name See Care Team Living Environment Lives With alone (Patient stated that his three daughters will be helping him at discharge) Living Arrangements house (Ranch style home with 3 [address]) Provides Primary Care For no one Primary Care Provided By self Support System Immediate family Able to Return to Prior Arrangements yes Functional Status Patient's Functional Status Prior To This Admission? Independent Are There Status Changes This Admission? No Changes Observed Since Admission? No Changes Observed Concerns With Patient Being Able To Care For Themselves At Discharge? Has Assistance (Friend, Family, Skilled Provider) Who Is Patient's Primary Contact For Discharge Planning, Education And Care For Discharge? Patient's daughters Employment/Financial Employed? Retired Employment/Financial Concerns no Source Of Income pension/long-term;social security Financial Concerns none Insurance Medical Insurance Verified Yes Prescription Coverage Yes Pharmacy updated in IHIS Yes Initial Discharge Planning Home Care Services (RESEARCH FOOD TECHNOLOGIST) No Home Therapies (RESEARCH FOOD TECHNOLOGIST) None DME (RESEARCH FOOD TECHNOLOGIST) Straight cane;Quad cane;[facility] [employer] Supplies (RESEARCH FOOD TECHNOLOGIST) None Patient Goal for Discharge Return home with assistance from family and friends Anticipated discharge disposition Home with Home Health Anticipated Services at Discharge [facility] Anticipated Changes Related to Illness none Current Discharge Risk high risk diagnoses (i.e., CHF, Stroke, DM, chronic pain, abdominal pain, nausea and vomiting) Transportation Available family or friend will provide Discharge Planning Comments Patient will plan on returning home at discharge Home Care Services (RESEARCH FOOD TECHNOLOGIST) Additional Home Care Services (RESEARCH FOOD TECHNOLOGIST) no Assessment/Concerns to be Addressed Concerns To Be Addressed no discharge needs identified;denies needs/concerns at this time PCRM Initial Assessment Met with Ed to complete the initial assessment. Explained role and function of PCRM in multidisciplinary team. Contact number provided for questions. Demographic information reviewed with patient/family and confirmed as correct. Reason for Admission: Exploratory laparotomy, recurrent colon cancer tumor resection of the right upper quadrant, right hemicolectomy with primary stapled ileocolonic anastomosis. BRAD drain placement to abscess cavity which was in the small bowel mesentery. Estimated length of stay: 1-2 days Advanced directives Patient has Advanced Directives on file Lines/Drains/Tubes Patient has a peripheral line and an abdominal wound in place. Patient will need a wound vac for discharge. Initial PCRM Discharge Planning Patient will plan on returning home at discharge. Final plan will be determined closer to discharge, pending therapy and medical team recommendations. Patient/family verbalized understanding and agreement with the plan of care. Patient/family have no questions at this time. PCRM will continue to follow patient with multidisciplinary team for ongoing assessment of needs and for discharge planning. Medical team updated. Lionel ENCARNACION,RN,PSYCHIATRIC [phone] Team Paged. PT's amezcua out approx 0900, pt has not voided and has 91 ml in bladder when scanned. How would you like to proceed? [phone] Team paged again Pt still has not voided post amezcua removal. How should we proceed, pt denies discomfort. 1440 Call back received, re-scan pt bladder at 1700, team wants bladder to have less than 300 ml. IHIS chat to MD Davis that abd pad had shadowing. MD up to bedside, abd pad changed. Dressing supplies in room. 2330 notified MD Posadas via IHIS chat that urine output was 225ml for [id number] shift. also notified that HR is at 50 when sleeping, pt is asymptomatic. 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 Liliana Costa and Kiesha Dave Service: Colorectal Surgery Anesthesia: General endotracheal Anesthesiologist: Adriel Deng MD; Evangelista Cleary MD ADMISSIONS REPRESENTATIVE: No Jones APRN-JONO Wood Heel Back Liner Assisting: Cecilia Salmon MD EBL: One hundred ml Complication: None Counts: Reported as correct. No foreign bodies identified on inspection of the anus Specimens: Right colon Statement of Medical Necessity Mr. Gandhi is a 83 y.o. male with a history of prior transverse colectomy for colon cancer. This was poorly differentiated but the margins and nodes were negative. He presented a few months ago with CT findings of a large mass in the transverse colon mesentery. This is consistent with recurrence within the lymph nodes of the mesentery. We have treated him now for several months with chemotherapy with some slight decrease in the size. However on recent imaging he also had air within the cavity suggesting fistulization to the colon of the mass. In discussion with him and his oncologist we felt like we had reached the limits of the benefit of chemotherapy and if it was possible to excise this that would be his best treatment option. In reviewing it myself and with tumor board we felt like there was a chance that this involved the small bowel mesentery but hopefully it does not. Therefore recommended excision.. The risks, benefits and alternatives of surgery were explained to him and he desired to proceed. Operation After informed consent was obtained, Mr. Gandhi was brought to the operating room. he was put to sleep and then positioned supine on the operating table. Pressure points were padded. Sequential compression devices were applied. The abdomen was prepped and draped in the usual sterile fashion. We began with a midline incision through his prior scar. We sharply entered the abdomen safely. He had few if any adhesions. He did have a small hernia just in the supraumbilical portion of his prior midline laparotomy site which we opened up. We explored the abdomen. There was no evidence of any distant metastatic disease nor intraperitoneal spread. He had a mass in the transverse colon mesentery about 15 cm in diameter. This was palpable through the left side of the small bowel mesentery as well and was clearly plastered between the two. The superior side of the transverse colon mesentery was normal although he could feel the mass through it. Therefore we took down the hepatic flexure in the attachments of the right side of the colon. We worked this all the way up until we had mobilized it off of the duodenum. At this point I felt like the only way to tell whether the small bowel mesentery was actually involved was to get into the thing and see if we could peel it off of the small bowel mesentery. Therefore I entered it from the left side between the jejunum who is mesentery was stuck in the left upper portion of the mass and got into the cavity. There was some old stool there and chronic infection as well as necrotic tumor. We were able to get under the mass and get proximal control of the middleColic vessels below it. Therefore divided the transverse colon just to the left of that and divided the ileum. We then took down the ileocolic vessels with the LigaSure and took down the mesentery of the transverse colon proximal to this mass also with the LigaSure. We oversewed a couple areas of bleeding with 3-0 silk suture. This allowed us to get the right colon safely out. We then turned our attention to whether the remainder of the mass was resectable. However the necrotic tumor cavity essentially encompassed the mesentery of the proximal jejunum. The way his mesentery shaped that really feeds all of the small bowel. Therefore we are not able to safely excise this. It was not really wrapped around the vessels seemingly but had pushed into the mesentery from the superior aspect. I then performed a [id number]-vo-[id number] functional end-to-end anastomosis of the transverse colon to the terminal ileum. We placed a 3-0 silk junctional suture. I then closed the mesentery of the distal transverse colon to the superior and inferior aspects of the remaining cavity. As able to do that by taking bites of the peritoneum just either side of the cavity and did not have to so tumor directly. I then placed a 15 Bulgarian Maurisio drain through the right superior apex of where the sutures came together and brought that out the right upper quadrant. That will allow us to drain this cavity and hopefully prevent immediate reaccumulation of an abscess there. Essentially when we finished the tumor was contained much as it had been when we entered. The anastomosis itself was superior into the right of the cavity and then we were able to close it it does not touch the cavity and so I think has a very reasonable chance of healing and not leaking. Given the contamination of the chronic abscess in tumor cavity I decided to leave the skin open. We closed the fascia with interrupted 1. PDS after taking the hernia sac off of the periumbilical incision. We then packed the skin with gauze. The patient tolerated the procedure well. he was covered with dry dressings and taken to the recovery room. Problem: Patient Care Overview Goal: Plan of Care Review Outcome: Progressing Toward Goal Goal: Individualization & Mutuality Outcome: Progressing Toward Goal Goal: Discharge Needs Assessment Outcome: Progressing Toward Goal Goal: Interdisciplinary Rounds/Family Conf Outcome: Progressing Toward Goal Problem: Surgery Nonspecified (Adult) Goal: Signs and Symptoms of Listed Potential Problems Will be Absent, Minimized or Managed (Surgery Nonspecified) Description: Signs and symptoms of listed potential problems will be absent, minimized or managed by discharge/transition of care (reference Surgery Nonspecified (Adult) CPG). Outcome: Progressing Toward Goal Skin assessment completed by Noreen GALLO and Marie RN upon arrival to the floor. Pt had incision midline on his abdomin covered by dressing, a BRAD drain on the right side of abdomin and dry skin on his feet. No other skin issues noted. Ed Marks Hiram ([id number]) PRE OPERATIVE DIAGNOSIS Malignant neoplasm of transverse colon [C18.4] POST OPERATIVE DIAGNOSIS Post-Op Diagnosis Codes: * Malignant neoplasm of transverse colon [C18.4] PROCEDURE PERFORMED Procedure(s) (LRB): COLECTOMY PARTIAL OPEN RIGHT (N/A) Exploratory laparotomy Right hemicolectomy with re-resection of proximal transverse colon mass. Placement of BRAD drain. PRIMARY CLOSURE No INTRAOPERATIVE FINDINGS Invasion of cancer into the root of the small bowel mesentery. With associated abscess cavity due to perforation. SURGEON Surgeon(s) and Role: * Leida Lui MD - Primary * Kiesha Dave MD - Assisting ANESTHESIOLOGIST Anesthesiologist: Adriel Deng MD; Evangelista Cleary MD ADMISSIONS REPRESENTATIVE: No Jones APRN-ADMISSIONS REPRESENTATIVE Wood Heel Back Liner Assisting: Cecilia Salmon MD SURGICAL STAFF Clip Bolter And Wrapper: Sudheer Broderick RN Relief Clip Bolter And Wrapper: Noreen Ross RN Relief Scrub: Gracia Guerin Fellow: Liliana Costa MD Patient Safety Attendant: Stefani Cash COMPLICATIONS None ESTIMATED BLOOD LOSS 100 ml SPECIMENS As below ID Type Source Tests Collected by Time Destination 1 : Right colon Permanent SURG PATH SURG PATH REQUEST Leida Lui MD 09/27/2023 1122 Kiesha Dave MD September 27, 2023 12:35 PM I certify that this patient requires inpatient services at this time. I anticipate the expected length of stay will include at least two midnights. Current treatment plan includes recovery from GI surgery for rectal cancer. Plans for post hospitalization care will be discharge to home. documented in this encounter [facility] 10-01-2023 Nurse Note AVS and JF faxed to [facility]. Report called to Megan. [facility] 10-01-2023 Nurse Note 10/01/23 1421 Referral Information Arrived From operating room Final Discharge Planning Discharge Disposition Home with Home Health Services at Discharge DME;[facility] Final DME Other (comment) (wound vac supplies) CM/SW AVS Portion Completed Yes Community Agency Name(s) For Handoff [facility] Name For Handoff RN to please call report, fax AVS, JF and Discharge Summary Phone For Handoff [phone] Fax For Handoff [phone] Additional Community Agency Name(s) yes Plan Plan Home today with [facility] wound vac to midline incision and BRAD Drain Patient/Family In Agreement With Plan yes Transport Request Mode of Transfer Private [facility] PCR Discharge Note Patient discussed in medical rounds for discharge to home today. Wound vac was approved through [facility] and [facility] arranged. PCRM met with the patient/family/spouse to discuss final discharge plan. Services for Discharge [facility] arranged for discharge; they will start care on Sunday for next vac change. Consults with Final Discharge Recommendations ET RN- wound vac dressing changed today, on MWF scheduled. Wound vac approved and delivered to beside. Lines/Tubes/Drains/Wounds/Supplie s Midline incision with wound vac- home vac delivered. Bedside RN to give wet to dry wound care supplies in case needed. BRAD Drain- will stay in until follow up. Medications No barriers anticipated in obtaining discharge medications. No prior authorizations anticipated. Reconciliation of medications to be completed by the medical team. Medications at the [facility], pt is ok with the cost. Durable Medical Equipment [employer] (Wound Vac Supplier) [phone]- phone for technical support, any service concerns, to reorder supplies, or to update your insurance information Choice Was Patient Choice Provided: Yes Transportation Transportation will be provided by family. Education Discharge education provided by the medical team and updated in the After Visit Summary. Follow Up(s) Any follow up requested by the medical team arranged. Appointments in the After Visit Summary. Future Appointments Provider Department Center 10/18/2023 2:45 PM Leida Lui [facility] Gastrointestinal Surgery [facility] [place] Arrive at: Arrive to 1st Floor Registration [facility] Was Ambulatory PCRM added to the Care Team? No- No outpatient PCRM for this physician The PCRM has updated the patient's nurse Melissa regarding the final discharge plan. Risk of Readmission: 4.2 Category Reference: Low: 0% - 5% Medium - Low: 5.1% - 10% Medium - High: 10.1% - 16% High: 16.1% - 100% Readmission Risk Interventions Documented: Yes No other discharge needs have been identified at this time. This plan was developed in collaboration with the patient and caregiver/preferred decision maker. Patient and family are in agreement with final discharge plan. Please refer to AVS and medical record for additional information. Patient instructed to call with questions. PCRM will continue to follow with medical team for any additional discharge planning needs. ANN MARIE Chiang [phone] If any changes to this individualized plan of care during evening and weekend hours and assistance is needed, please page the applications scientist PCRM at [phone]. [facility] 10-01-2023 Hospital course Narrative Discharge Summary Name: Ed Gandhi Age: 83 y.o. Birthday: 1940 Admit Date: 09/27/2023 7:33 AM Discharge Date: 10/01/23 Discharge Time: 1400 Discharge Unit: [id number] Admission Information Admitting Physician: Leida Lui MD Discharge Information Discharge Physician: Leida Lui MD Problem List Active Hospital Problems Diagnosis Cancer of transverse colon Resolved Hospital Problems No resolved problems to display. Brief Summary of Hospital Course for Discharge Summary: Ed Gandhi is a 83 y.o. male with a history of transverse colon cancer s/p laparoscopic transverse colectomy with path revealing poorly differentiated tumor with negative nodes and margins. He now presents with recurrent colon cancer in transverse colon mesentery. He underwent Exploratory laparotomy with Right hemicolectomy with re-resection of proximal transverse colon mass. Interoperative findings include: Invasion of cancer into the root of the small bowel mesentery with associated abscess cavity due to perforation. BRAD drain was placed in abscessed cavity. Fascia was closed without skin closure. Wet-to-dry dressing was applied with plans for wound vac placement. He tolerated the procedure well and there were no immediate complications. Zosyn was started for a total of 5-days post surgery for abscess cavity. BRAD drain will be removed during post-operative follow up appointment He was discharged on 10/01/2023 to home with home healthcare for wound vac care in stable condition. OARRS has been reviewed for this patient. Based on the information, it is appropriate to prescribe narcotics. On day of discharge, he was ambulating independently, voiding spontaneously, and tolerating a regular diet. He reports pain is controlled on an oral regimen, and vital signs are stable. Verbal and written discharge instructions were discussed and opportunity for questions was given. All discharge instructions and follow up information are in the patient After Visit Summary. He will follow-up with Dr. Leida Lui MD for a postoperative follow up and evaluation. Summary of last selected lab results and date obtained: Lab Results Component Value Date WBC 5.30 10/01/2023 HGB 8.4 (L) 10/01/2023 HCT 27.8 (L) 10/01/2023 PLATELET 216 10/01/2023 MCV 88.5 10/01/2023 Lab Results Component Value Date SODIUM 139 10/01/2023 POTASSIUM 4.0 10/01/2023 CHLORIDE 110 (H) 10/01/2023 CO2 20 (L) 10/01/2023 BUN 11 10/01/2023 CREATSERUM 0.91 10/01/2023 GLUCOSE 102 (H) 10/01/2023 Lab Results Component Value Date ALT 17 09/13/2023 AST 17 09/13/2023 ALKPHOS 86 09/13/2023 BILITOTAL 1.1 09/13/2023 Discharge Orders AMB REFERRAL TO HOME HEALTH - INPATIENT DISCHARGE JF Current Outpatient Meds: Medication List for when you go home START taking these medications Acetaminophen 325 MG tablet Take 2 tablets by mouth every 6 hours as needed for Mild Pain or Moderate Pain. Commonly known as: TYLENOL Cefdinir 300 MG capsule Take 1 capsule by mouth every 12 hours for 1 day. Commonly known as: OMNICEF docusate 100 MG CAPS Take 1 capsule by mouth 2 times daily for 15 days. Enoxaparin Sodium 40 MG/0.4ML injection Inject 0.4 mL under the skin every 24 hours. Commonly known as: LOVENOX Gabapentin 100 MG CAPS Take 1 capsule by mouth every 8 hours for 10 days. Commonly known as: NEURONTIN Ibuprofen 600 MG TABS Take 1 tablet by mouth every 8 hours. Commonly known as: MOTRIN Ondansetron 4 MG ODT tablet Take 1 tablet by mouth every 8 hours as needed for Nausea / Vomiting. Commonly known as: ZOFRAN-ODT oxyCODONE 5 MG TABS Take 1 tablet by mouth every 6 hours as needed for Moderate Pain or Severe Pain for up to 4 days. Commonly known as: ROXICODONE For diagnoses: Malignant neoplasm of transverse colon CHANGE how you take these medications metroNIDAZOLE 500 MG TABS Take 1 tablet by mouth every 8 hours for 1 day. Commonly known as: FLAGYL What changed: The quantity you have reported taking of this medication has changed How you take your medication has changed How often you have reported taking this medication has changed additional instructions CONTINUE taking these medications Lisinopril 5 MG TABS Take 1 tablet by mouth daily every morning. Commonly known as: PRINIVIL STOP taking these medications bisacodyl [address] Commonly known as: DULCOLAX chlorhexidine 4 % LIQD Commonly known as: HIBICLENS Neomycin 500 MG TABS Commonly known as: MYCIFRADIN Polyethylene glycol 17 GM/SCOOP POWD powder Commonly known as: MIRALAX Medication Instructions: Pain Medication A prescription for pain medicine may be sent home with you. Do not drive while taking prescription pain medicine. Eat when taking pain medicines to avoid nausea. When your pain decreases switch to over the counter acetaminophen, like Tylenol. Follow the dose as label directs. ANTICOAGULATION: LOVENOX Lovenox Injection Lovenox, a brand of Enoxaparin is a blood thinning medicine that has been prescribed for you to prevent and treat blood clots. While taking this medicine: Make sure your doctor and dentist are aware that you are on Lovenox. Ask your doctor or pharmacist before using any other medicine, including ozvx-svo-tszgukp medicines, vitamins, and herbal products. Avoid taking aspirin or medicine that contains aspirin, while on a blood thinning medicine unless your doctor tells you to. Your doctor will need to check you often while you are on this medicine. Be sure to keep appointments. Your doctor will prescribe your exact dose and tell you how often it should be given. You may be taught how to give this medicine at home. Make sure you understand all instructions before giving yourself an injection. Refer to your handouts about Lovenox/Enoxaparin and doing the injection. Call your doctor or nurse with other questions or concerns. While On Blood Thinners While on blood thinning medicines you have a higher risk of bleeding. Follow these bleeding precautions: Plan a safe environment at home. Arrange furniture to reduce falls. Get plenty of rest. Ask for help with walking if unsteady on feet. Avoid activities where you could fall, get bumps, or cut yourself. Do not go barefoot. Use an electric razor for shaving. Report signs of bleeding to your doctor right away. These may include: Heavy bleeding from gums when brushing teeth , Urine looks dark brown or red , Stool looks black or tarry, Bruising, unusual pain, swelling or headache and Bleeding from cuts, or a nosebleed that does not stop Check your skin every day for new cuts, bruises, or injuries. Apply constant pressure to any cut for 3 to 5 minutes to stop bleeding. Seek medical help right away if you continue to bleed or notice any unusual bleeding. Follow-up: [address] [place] [address] Follow up They will provide your home nursing services at discharge, starting on 10/03/23. Leida Lui MD [address] [place] [address] [facility] [phone] Follow up on 10/18/2023 Upcoming Appointments (up to five)-Some appointments for Medical Center outpatient clinics or diagnostic testing locations are not displayed below Provider Department Dept Phone 10/18/2023 2:45 PM Leida Lui General [facility] Gastrointestinal Surgery [facility] [place] Arrive at: Arrive to 1st Floor Registration [phone] [facility] Adrian Sandy MD General Surgery PGY-1 documented in this encounter [facility] 10-01-2023 Progress note Formatting of t his note might be different from the original. Consent Documentation The consent form was reviewed with the patient and family including the study purpose, study visit schedule, research-only procedures, reasonably foreseeable risks or discomforts, confidentiality of records, who to contact for answers to questions, and that participation is voluntary and the patient may withdraw from the study at any time. No protocol specific testing was performed before informed consent was obtained. All questions were answered. Patient acknowledged understanding of all study protocol requirements and accepts the risks described. The patient then signed [id number] consent and HIPAA Authorization. The patient was given a copy of the consent forms. Grain Blender: SHADE Almanzar Date of consent encounter: 10/01/23 Protocol number: [id number] Patient name: Ed Gandhi Name of research personnel that discussed the protocol with the patient: Arin Odell, ARCHITECTURAL DRAFTER-AGRONOMY PROFESSOR Original signed consent form(s) and HIPPA authorization form will be kept in the research chart [facility] Work Phone: 10-01-2023 History of Presen t illness Narrative Home health care arranged and updated; awaiting wound vac approval. H&P, Op Note and HHC info faxed to [facility]. Rep called and emailed to encourage timely determination. Pt and daughter updated, wound vac dressing has been changed today. Gloria Jose Luis [facility] [phone] Addendum @ 1400: Wound Vac approved and delivered. Confirmation form signed and faxed to [facility]. Team updated and discharge order placed. Colorectal Surgery Daily Progress Note Attending: Leida Lui MD Length of Stay: 4 Surgery: Exploratory laparotomy, recurrent colon cancer tumor resection of the right upper quadrant, right hemicolectomy with primary stapled ileocolonic anastomosis. BRAD drain placement to abscess cavity which was in the small bowel mesentery. Team: A (Vishnu Lopez Harzman) Pager: GUERRERO [phone], Gene [phone] Subjective/Interval events: Pain controlled. Feeling well overall this morning. Tolerating a diet. Having bowel function. Wound vac in place. O:BP 136/71 (BP Location: Left arm, BP Position: Lying) Pulse 68 Temp 98.3 F (36.8 C) (Oral) Resp 16 Ht 1.88 m (6' 2.02 ) Wt 96.5 kg (212 lb 12.8 oz) SpO2 97% BMI 27.31 kg/m Smoking Status Never 09/30 0700 - 10/01 0659 In: 1210 [P.O.:1210] Out: 560.5 [Urine:550] PE: General: NAD, lying in bed Pulm: Respirations easy and non labored Abd: Soft, appropriately tender, nondistended. Midline wound with wound vac in place. 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 Recent CT scans with tumor at posterior anastomosis site. 09/27/2023: Open, extended right hemicolectomy Today's Plan - Continue Regular diet - Continue Wound vac - MWF changes - Continue PO cefdinir/flagyl today to complete a course of 5 days abx post-op. Brad drain to remain in on discharge. - Discharge pending home health care for wound vac. Acute pain Continue multimodal pain regimen. Oxycodone prn At moderate risk for DVT Daily Lovenox/SQH. Ambulate daily, SCD's. Health Education Plan of care discussed with patient. Answered questions, agrees with plan of care Complexity Hypocalcemia - Correction per protocol Any conditions listed below are present on admission unless otherwise specified. Diet: DIET REGULAR DVT prophylaxis: SQH/Lovenox Amezcua: Removed on 09/28 Lines: PIV, Wound vac Code status: Full Level of care: Med Surg Planned Discharge date: pending [facility] for wound vac, possibly Sunday (10/01) Dispo- Home with [facility] Patient seen with colorectal team, plan of care discussed, and they are in agreement. Teresa Sandy MD Checked status of wound vac on [facility] site. Still pending insurance approval at this time. Medical team made aware. Home care choices pending. ALYSHA Miner RN PCR Ph: [phone] Pager: [phone] Pager: [phone] If any changes to this individualized plan of care during evening and weekend hours and assistance is needed, please page the applications scientist PCRM at [phone]. Colorectal Surgery Daily Progress Note Attending: Leida Lui MD Length of Stay: 3 Surgery: Exploratory laparotomy, recurrent colon cancer tumor resection of the right upper quadrant, right hemicolectomy with primary stapled ileocolonic anastomosis. BRAD drain placement to abscess cavity which was in the small bowel mesentery. Team: A (Vishnu Lopez Harzman) Pager: GUERRERO [phone], Gene [phone] Subjective/Interval events: Pain controlled. Feeling well overall this morning. Tolerating a diet. Having bowel function. Wound vac placed yesterday. O:BP 138/64 (BP Location: Left arm, BP Position: Lying) Pulse 60 Temp 97.7 F (36.5 C) (Oral) Resp 16 Ht 1.88 m (6' 2.02 ) Wt 96.5 kg (212 lb 12.8 oz) SpO2 97% BMI 27.31 kg/m Smoking Status Never 09/29 0700 - 09/30 0659 In: 1663.9 [P.O.:860; I.V.:438.4] Out: 1170 [Urine:1150] PE: General: NAD, lying in bed Pulm: Respirations easy and non labored Abd: Soft, appropriately tender, nondistended. Midline wound with wound vac in place. 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 Recent CT scans with tumor at posterior anastomosis site. 09/27/2023: Open, extended right hemicolectomy Today's Plan - Continue Regular diet - Continue Wound vac - MWF changes - Continue PO cefdinir/flagyl today to complete a course of 5 days abx post-op. Brad drain to remain in on discharge. - Discharge pending home health care for wound vac. Acute pain Continue multimodal pain regimen. Oxycodone prn At moderate risk for DVT Daily Lovenox/SQH. Ambulate daily, SCD's. Health Education Plan of care discussed with patient. Answered questions, agrees with plan of care Complexity Hypocalcemia - Correction per protocol Any conditions listed below are present on admission unless otherwise specified. Diet: DIET REGULAR DVT prophylaxis: SQH/Lovenox Amezcua: Removed on 09/28 Lines: PIV, Wound vac Code status: Full Level of care: Med Surg Planned Discharge date: pending [facility] for wound vac, possibly Sunday (10/01) Dispo- Home with [facility] Patient seen with colorectal team, plan of care discussed, and they are in agreement. Teresa Sandy MD Colorectal Surgery Progress Note Plan for wound vac therapy to midline abdominal wound. The surgical incision was left open due to concern for contamination from intra-abdominal abscess. Reasons for VAC therapy include faster wound healing, decreased risk for infection, and decreased risk for wound complications such as wound dehiscence. Consequences of not using VAC therapy include wound infection, wound dehiscence, and delayed/poor healing. Estimated duration of VAC therapy is 6-10 weeks. Teresa Sandy MD General Surgery PGY-1 PCRM received call from surgical team resident (Dr. Sandy) requesting wound vac and [facility] set up for home discharge. PCRM submitted request via [employer] system. Provided requested documentation including: H&P, Operative Note, Demographics, Wound Note/Pictures. Order signature request sent to Dr. Leida Lui via email from [employer]. Pending rental order number [id number]. Email update requests to: [email or web address] Awaiting determination. [facility] referral pending. Will obtain choice when choice list available. PCRM will continue to follow with multidisciplinary team for ongoing assessment of needs and planning. Heather Payne MSN, RN Patient Care Graduate Fellow Office: [phone] For evening and weekend discharge assistance please page the on-call PCRM at [phone] Colorectal Surgery Daily Progress Note Attending: Leida Lui MD Length of Stay: 2 Surgery: Exploratory laparotomy, recurrent colon cancer tumor resection of the right upper quadrant, right hemicolectomy with primary stapled ileocolonic anastomosis. BRAD drain placement to abscess cavity which was in the small bowel mesentery. Team: A (Vishnu Lopez, Hu) Pager: GUERRERO [phone], Gene [phone] Subjective/Interval events: Pain controlled. Feeling well overall this morning. Tolerating a diet. Having bowel function. O:BP 140/66 (BP Location: Right arm, BP Position: Sitting) Pulse 56 Temp 97.8 F (36.6 C) (Oral) Resp 16 Ht 1.88 m (6' 2.02 ) Wt 96.5 kg (212 lb 12.8 oz) SpO2 100% BMI 27.31 kg/m Smoking Status Never 09/28 700 - 09/29 0659 In: 4799.7 [P.O.:1320; I.V.:3000.1] Out: 205 [Urine:175] PE: General: NAD, lying in bed Pulm: Respirations easy and non labored Abd: Soft, appropriately tender, nondistended. Well healing midline wound. Healthy base. 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 Recent CT scans with tumor at posterior anastomosis site. 09/27/2023: Open, extended right hemicolectomy Today's Plan - Continue BID, wet to dry packing with kerlex covered by ABD. Discuss wound vac with wound team today. - DC MIV - Regular diet per CERAS protocol. - Await return of bowel function. - Transition to PO - cefdinir/flagyl today to complete a course of 5 days abx post-op. Brad drain to remain in on discharge. - Possible Dc today if we can arrange home health care and wound vac. Acute pain Continue multimodal pain regimen. Oxycodone prn At moderate risk for DVT Daily Lovenox/SQH. Ambulate daily, SCD's. Health Education Plan of care discussed with patient. Answered questions, agrees with plan of care Complexity Hypocalcemia - Correction per protocol Any conditions listed below are present on admission unless otherwise specified. Diet: DIET REGULAR DVT prophylaxis: SQH/Lovenox Amezcua: Removed on 09/28 Lines: PIV Code status: Full Level of care: Med Surg Planned Discharge date: pending surgical recovery Dispo- inpatient Patient seen with colorectal team, plan of care discussed, and they are in agreement. Kiesha Dave MD Anesthesia Acute Pain Progress Note S: Patient seen and examined at bedside. No acute events overnight. Pain well-controlled with current regimen. Patient denies headache, SOB, nausea, emesis, pruritus, and paresthesias. O: Temp: [97.7 F (36.5 C)-99 F (37.2 C)] 99 F (37.2 C) Pulse (Heart Rate): [52-80] 54 Resp Rate: [9-24] 16 BP: (112-155)/(55-73) 155/71 O2 Sat (%): [92 %-100 %] 97 % Weight: [96.5 kg (212 lb 12.8 oz)] 96.5 kg (212 lb 12.8 oz) General: NAD Neuro: Alert and oriented, no focal deficits Assessment and Plan: 83 y.o. male s/p Procedure(s) (LRB): COLECTOMY PARTIAL OPEN RIGHT (N/A) on 09/27/23. Patient received an intrathecal morphine dose for post-op pain control. Doing well with minimal adverse effects. APS will sign off at this time. Please call [phone] or page [phone] with any questions or concerns. Cecilia Salmon MD Anesthesiology Colorectal Surgery Daily Progress Note Attending: Leida Lui MD Length of Stay: 1 Surgery: Exploratory laparotomy, recurrent colon cancer tumor resection of the right upper quadrant, right hemicolectomy with primary stapled ileocolonic anastomosis. BRAD drain placement to abscess cavity which was in the small bowel mesentery. Team: Ajay (Vishnu Lopez Harzman) Pager: GUERRERO [phone], Gene [phone] Subjective/Interval events: Pain controlled. Feeling well overall this morning. O:BP 155/71 (BP Location: Right arm, BP Position: Lying) Pulse 54 Temp 99 F (37.2 C) (Oral) Resp 16 Ht 1.88 m (6' 2.02 ) Wt 96.5 kg (212 lb 12.8 oz) SpO2 97% BMI 27.31 kg/m Smoking Status Never 09/27 0700 - 09/28 0659 In: 950 [P.O.:800] Out: 825 [Urine:625] PE: General: NAD, lying in bed Pulm: Respirations easy and non labored Abd: Soft, appropriately tender, nondistended. Well healing midline wound. Healthy base. 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 Recent CT scans with tumor at posterior anastomosis site. 09/27/2023: Open, extended right hemicolectomy Today's Plan - Continue BID, wet to dry packing with kerlex covered by ABD. - Remove amezcua today. - Lower MIV to 75 ml / hr. - Regular diet per CERAS protocol. - Await return of bowel function. - Continue abx (Pip-tazo) for a total of 5 days post surgery for abscess cavity. Acute pain Continue multimodal pain regimen. Oxycodone prn At moderate risk for DVT Daily Lovenox/SQH. Ambulate daily, SCD's. Health Education Plan of care discussed with patient. Answered questions, agrees with plan of care Complexity Hypocalcemia - Correction per protocol Any conditions listed below are present on admission unless otherwise specified. Diet: DIET REGULAR DVT prophylaxis: SQH/Lovenox Amezcua: Remove on 09/28 Lines: PIV Code status: Full Level of care: Med Surg Planned Discharge date: pending surgical recovery Dispo- inpatient Patient seen with colorectal team, plan of care discussed, and they are in agreement. Kiesha Dave MD Colorectal SURGERY POST-OPERATIVE CHECK Subjective: Ed Gandhi is a 83 y.o. male who is now status post right hemicolectomy 2/2 recurrent proximal transverse colon cancer with extension to small bowel mesentery. The patient was evaluated after transport to the hospital floor. Patient reports that pain is well controlled. Denies fevers, chills, chest pain, SOB, N/V. Amezcua with clear, dark yellow urine. Has not been OOB, but expressed interest in doing so. Objective: Vitals: BP 145/67 Pulse 80 Temp 98.3 F (36.8 C) Resp 18 Ht 1.88 m (6' 2.02 ) Wt 96.5 kg (212 lb 12.8 oz) SpO2 95% BMI 27.31 kg/m Smoking Status Never Exam: GEN: Laying comfortably in bed, no acute distress. RESP: No increased work of breathing. Bilateral breath sounds. CARD: Hemodynamically stable. ABD: Soft, appropriately tender to palpation, non-distended. Midline incision with wet-to-dry packing (fascia closed, skin left open). BRAD drain in RLQ, serosang output. EXT: No cyanosis. 2+ radial/DP/PT pulses bilaterally. Assessment and Plan: Ed Gandhi is a 83 y.o. male who is now s/p right hemicolectomy 2/2 recurrent proximal transverse colon cancer with extension to small bowel mesentery. The patient is recovering well post-operatively. Plan: - CERAS - Continue Amezcua catheter - Zosyn x5 days. - pain: tylenol, dilaudid, oxycodone - nausea: PRN zofran, compazine - diet: DIET CLEAR LIQUID DIET REGULAR - fluids: Sodium chloride 0.9% 75 mL/hr at 09/27/23 1734 - DVT prophylaxis: Lovenox tomorrow. - encourage OOBAT and IS Teresa Sandy MD General Surgery PGY-1 documented in this encounter [facility] 10-01-2023 Nurse Note WOC nursing visit for NPWT dressing change: The patient was premedicated for pain. Removed all documented pieces of dressing, see details of wound below. Wound lagely unchanged, scattered areas of healthy bleeding granulation tissue. The periwound skin was cleansed with soap and water, allowed to dry, and Cavilon no sting barrier film was applied. Picture framed wound with drape. Gently packed wound with black foam, secured with drape. NPWT was initiated at 125 mmHg, no appreciable leaks. Patient tolerated dressing well. Next dressing change 10/03. Documentation: 10/01/23 1048 Wound Incision 09/27/23 1032 Abdomen Date First Assessed/Time First Assessed: 09/27/23 103 Primary Wound Type: Incision Present on Original Admission: No Location: Abdomen Dressing Status Changed/New Assessment Red;Yellow (adipose) Yvonne-Wound Assessment Intact Drainage Amount Scant Drainage Characteristics/Odor Serosanguinous $$ Dressing Applied other (see comments) Date Dressing Changed 10/01/23 Negative Pressure Wound Therapy 09/29/23 Abdomen Placement Date: 09/29/23 Location: Abdomen NPWT Unit Type subsequent non-disposable less than/equal to 50 sq cm Dressing Type foam, black Number of Foam Pieces Used 1 Cycle Continuous Target Pressure (mmHg) 125 Date Dressing Changed 10/01/23 Plan Last Date Seen 10/01/23 Images: Total time spent in assessment and treatment of patient: 30 Minutes. Kenya Walsh PHYSICAL THERAPIST AIDE, RN-BC, CWON [facility] 10-01-2023 Plan of care note BRAD drain intact and wound vac on and in working order. [facility] 09-30-2023 Plan of care note Problem: Patient Care Overview Goal: Plan of Care Review Outcome: Ongoing Goal: Individualization & Mutuality Outcome: Ongoing Goal: Discharge Needs Assessment Outcome: Ongoing Goal: Interdisciplinary Rounds/Family Conf Outcome: Ongoing Problem: Surgery Nonspecified (Adult) Goal: Signs and Symptoms of Listed Potential Problems Will be Absent, Minimized or Managed (Surgery Nonspecified) Description: Signs and symptoms of listed potential problems will be absent, minimized or managed by discharge/transition of care (reference Surgery Nonspecified (Adult) CPG). Outcome: Ongoing [facility] 09-30-2023 Plan of care note Problem: Patient Care Overview Goal: Plan of Care Review Outcome: Ongoing Flowsheets (Taken 09/29/20232029) Plan Of Care Reviewed With: patient Note: Continue PO antibiotics and continue ambulating before discharge [facility] 09-29-2023 Plan of care note Patient has completed 3 walks today with the use of a walker stand by assist. Pain is controlled with tylenol and ibuprophen. Remains on room air incision is clean dry and intact. Patient has had several small BMs today and has been urinating without difficulty. Patient has been eating his meals completely with out signs of nausea [facility] 09-29-2023 Nurse Note Images from the original note were not included. WOC/ET Nursing Consult/Evaluation Note Evaluated Ed Gandhi for wounds located on midline abdomen Description of wound: 09/29/23 1000 Wound Incision 09/27/23 103 Abdomen Date First Assessed/Time First Assessed: 09/27/23 103 Primary Wound Type: Incision Present on Original Admission: No Location: Abdomen Assessment Moist;[place];Red Yvonne-Wound Assessment Intact Non-staged Wound Description Full thickness Wound Length (cm) 16 cm Wound Width (cm) 3 cm Wound Surface Area (cm^2) 48 cm^2 Wound Depth (cm) 2.5 cm Wound Volume (cm^3) 120 cm^3 Treatment Applied other (see comment) (NPWT) Negative Pressure Wound Therapy 09/29/23 Abdomen Placement Date: 09/29/23 Location: Abdomen NPWT Unit Type initial non-disposable >50 sq cm $$ Initial Non- Disposable Unit > 50 initial non-disposable >50 sq cm Dressing Type foam, black;transparent dressing Number of Foam Pieces Used 1 Cycle Continuous Target Pressure (mmHg) 125 Date Dressing Changed 09/29/23 Canister Changed Yes Plan Current Plan NPWT;WOC to change Supportive Measures optimize nutrition WOCT Visit Frequency Mon;Wed;Fri Last Date Seen 09/29/23 Recommendation: Patient seen for wound vac application to midline abdominal wound as noted (see photo). Cleansed with saline and patted dry. Applied skin prep and drape to periwound skin prior to 1 piece of black foam. Continuous suction at 125mmhg and no leaks noted. Patient tolerated dressing change with minimal discomfort, declined premedication. Will follow. Bed Surface: Standard mattress Discharge Recommendations: Patient may continue care as described above at discharge. See image(s) below: Urban Skin Assessment: Urban Risk Assessment Sensory Perception: 3-->slightly limited Moisture: 4-->rarely moist Activity: 3-->walks occasionally Mobility: 3-->slightly limited Nutrition: 3-->adequate Friction and Shear: 3-->no apparent problem Urban Score: 19 Urban Score: Urban Score: 19 Body mass index is 27.31 kg/m . Total time spent in assessment and treatment of patient: 45 minutes LABS: Albumin Date Value Ref Range Status 09/13/2023 4.0 3.5 - 5.0 g/dL Final No results found for: PREALBUMIN RN notified of assessment and plan. Please page #[phone] or reconsult with any further needs. Libby Martinez RN [facility] 09-29-2023 Nurse Note Discharge Planning for Home Health Options for discharge have been discussed with patient and family. Patient and family agree the post hospital care needs will best met at home with home care services. Background Information/ Hospital Overview: 83 year old patient whoe had an exploratory laparotomy, recurrent colon cancer tumor resection of the right upper quadrant, right hemicolectomy with primary stapled ileocolonic anastomosis. BRAD drain placement to abscess cavity which was in the small bowel mesentery. Services needed: Fpc Fpc Needs Patient will be discharging with a wound vac and he has a BRAD drain in place Line / tube / drain type and care needed BRAD drain and wound vac Wound Care Wound team needs to evaluate the patient for wound vac recs Oxygen requirements / airway Room air Lab work: type and frequency N/A Specialty Medications: (chemotherapy / IV antibiotics / Hydration) N/A Additional information regarding needed services: N/A Teachable Caregiver / Family Support: Patient's daughters are teachable caregivers and will be willing to work with [facility] to obtain education if there are complex teaching services needed for the patient. Physician following for home care orders / phone: Dr. Leida Lui [phone] Outpatient PCRM / phone: Joanie Barron [phone] Lionel ENCARNACION,RN,PCRM [phone] [facility] 09-29-2023 Nurse Note 09/29/23 0903 Referral Information Arrived From home or self-care Readmission Information Was patient readmitted within 30 Days? No Information Source Information Source patient Outpatient Providers Outpatient Providers Updated In IHIS Yes Contact Information Service Car Operator/SW Added to Care Team Yes This Microsoft Net Developer is Primary Service Car Operator/SW No Service Car Operator Name Lionel Sinclair Service Car Operator's Phone Number [phone] Social Work Contact Name See Care Team Living Environment Lives With alone (Patient stated that his three daughters will be helping him at discharge) Living Arrangements house (Ranch style home with 3 [address]) Provides Primary Care For no one Primary Care Provided By self Support System Immediate family Able to Return to Prior Arrangements yes Functional Status Patient's Functional Status Prior To This Admission? Independent Are There Status Changes This Admission? No Changes Observed Since Admission? No Changes Observed Concerns With Patient Being Able To Care For Themselves At Discharge? Has Assistance (Friend, Family, Skilled Provider) Who Is Patient's Primary Contact For Discharge Planning, Education And Care For Discharge? Patient's daughters Employment/Financial Employed? Retired Employment/Financial Concerns no Source Of Income pension/long-term;social security Financial Concerns none Insurance Medical Insurance Verified Yes Prescription Coverage Yes Pharmacy updated in IHIS Yes Initial Discharge Planning Home Care Services (RESEARCH FOOD TECHNOLOGIST) No Home Therapies (RESEARCH FOOD TECHNOLOGIST) None DME (RESEARCH FOOD TECHNOLOGIST) Straight cane;Quad cane;Walker Medical Supplies (RESEARCH FOOD TECHNOLOGIST) None Patient Goal for Discharge Return home with assistance from family and friends Anticipated discharge disposition Home with Home Health Anticipated Services at Discharge Fpc Anticipated Changes Related to Illness none Current Discharge Risk high risk diagnoses (i.e., CHF, Stroke, DM, chronic pain, abdominal pain, nausea and vomiting) Transportation Available family or friend will provide Discharge Planning Comments Patient will plan on returning home at discharge Home Care Services (RESEARCH FOOD TECHNOLOGIST) Additional Home Care Services (RESEARCH FOOD TECHNOLOGIST) no Assessment/Concerns to be Addressed Concerns To Be Addressed no discharge needs identified;denies needs/concerns at this time PCRM Initial Assessment Met with Ed to complete the initial assessment. Explained role and function of PCRM in multidisciplinary team. Contact number provided for questions. Demographic information reviewed with patient/family and confirmed as correct. Reason for Admission: Exploratory laparotomy, recurrent colon cancer tumor resection of the right upper quadrant, right hemicolectomy with primary stapled ileocolonic anastomosis. BRAD drain placement to abscess cavity which was in the small bowel mesentery. Estimated length of stay: 1-2 days Advanced directives Patient has Advanced Directives on file Lines/Drains/Tubes Patient has a peripheral line and an abdominal wound in place. Patient will need a wound vac for discharge. Initial PCR Discharge Planning Patient will plan on returning home at discharge. Final plan will be determined closer to discharge, pending therapy and medical team recommendations. Patient/family verbalized understanding and agreement with the plan of care. Patient/family have no questions at this time. PCRM will continue to follow patient with multidisciplinary team for ongoing assessment of needs and for discharge planning. Medical team updated. Lionel ENCARNACION,RN,PSYCHIATRIC [phone] [facility] 09-28-2023 Nurse Note Team Paged. PT's amezcua out approx 0900, pt has not voided and has 91 ml in bladder when scanned. How would you like to proceed? 1435 Team paged again Pt still has not voided post amezcua removal. How should we proceed, pt denies discomfort. 1440 Call back received, re-scan pt bladder at 1700, team wants bladder to have less than 300 ml. [facility] 09-27-2023 Nurse Note IHIS chat to MD Davis that abd pad had shadowing. MD up to bedside, abd pad changed. Dressing supplies in room. 2330 notified MD Posadas via IHIS chat that urine output was 225ml for [id number] shift. also notified that HR is at 50 when sleeping, pt is asymptomatic. 2354 order placed for LR bolus, [facility] 09-27-2023 Surgery Postoperative evaluation and management note Pre-op Diagnosis: Recurrent transverse colon cancer in the mesentery Post-op Diagnosis: Recurrent transverse colon cancer in the mesentery with extension into the small bowel mesentery Procedure: Exploratory laparotomy, right colectomy Staff: Leida Lui MD, who was present and scrubbed throughout the procedure Assist: Drs. Liliana Costa and Kiesha Dave Service: Colorectal Surgery Anesthesia: General endotracheal Anesthesiologist: Adriel Deng MD; Evangelista Cleary MD ADMISSIONS REPRESENTATIVE: No Jones APRN-JONO [employer] He[employer] Back Liner Assisting: Cecilia Salmon MD EBL: One hundred ml Complication: None Counts: Reported as correct. No foreign bodies identified on inspection of the anus Specimens: Right colon Statement of Medical Necessity Mr. Gandhi is a 83 y.o. male with a history of prior transverse colectomy for colon cancer. This was poorly differentiated but the margins and nodes were negative. He presented a few months ago with CT findings of a large mass in the transverse colon mesentery. This is consistent with recurrence within the lymph nodes of the mesentery. We have treated him now for several months with chemotherapy with some slight decrease in the size. However on recent imaging he also had air within the cavity suggesting fistulization to the colon of the mass. In discussion with him and his oncologist we felt like we had reached the limits of the benefit of chemotherapy and if it was possible to excise this that would be his best treatment option. In reviewing it myself and with tumor board we felt like there was a chance that this involved the small bowel mesentery but hopefully it does not. Therefore recommended excision.. The risks, benefits and alternatives of surgery were explained to him and he desired to proceed. Operation After informed consent was obtained, Mr. Gandhi was brought to the operating room. he was put to sleep and then positioned supine on the operating table. Pressure points were padded. Sequential compression devices were applied. The abdomen was prepped and draped in the usual sterile fashion. We began with a midline incision through his prior scar. We sharply entered the abdomen safely. He had few if any adhesions. He did have a small hernia just in the supraumbilical portion of his prior midline laparotomy site which we opened up. We explored the abdomen. There was no evidence of any distant metastatic disease nor intraperitoneal spread. He had a mass in the transverse colon mesentery about 15 cm in diameter. This was palpable through the left side of the small bowel mesentery as well and was clearly plastered between the two. The superior side of the transverse colon mesentery was normal although he could feel the mass through it. Therefore we took down the hepatic flexure in the attachments of the right side of the colon. We worked this all the way up until we had mobilized it off of the duodenum. At this point I felt like the only way to tell whether the small bowel mesentery was actually involved was to get into the thing and see if we could peel it off of the small bowel mesentery. Therefore I entered it from the left side between the jejunum who is mesentery was stuck in the left upper portion of the mass and got into the cavity. There was some old stool there and chronic infection as well as necrotic tumor. We were able to get under the mass and get proximal control of the middleColic vessels below it. Therefore divided the transverse colon just to the left of that and divided the ileum. We then took down the ileocolic vessels with the LigaSure and took down the mesentery of the transverse colon proximal to this mass also with the LigaSure. We oversewed a couple areas of bleeding with 3-0 silk suture. This allowed us to get the right colon safely out. We then turned our attention to whether the remainder of the mass was resectable. However the necrotic tumor cavity essentially encompassed the mesentery of the proximal jejunum. The way his mesentery shaped that really feeds all of the small bowel. Therefore we are not able to safely excise this. It was not really wrapped around the vessels seemingly but had pushed into the mesentery from the superior aspect. I then performed a [id number] functional end-to-end anastomosis of the transverse colon to the terminal ileum. We placed a 3-0 silk junctional suture. I then closed the mesentery of the distal transverse colon to the superior and inferior aspects of the remaining cavity. As able to do that by taking bites of the peritoneum just either side of the cavity and did not have to so tumor directly. I then placed a 15 Bulgarian Maurisio drain through the right superior apex of where the sutures came together and brought that out the right upper quadrant. That will allow us to drain this cavity and hopefully prevent immediate reaccumulation of an abscess there. Essentially when we finished the tumor was contained much as it had been when we entered. The anastomosis itself was superior into the right of the cavity and then we were able to close it it does not touch the cavity and so I think has a very reasonable chance of healing and not leaking. Given the contamination of the chronic abscess in tumor cavity I decided to leave the skin open. We closed the fascia with interrupted 1. PDS after taking the hernia sac off of the periumbilical incision. We then packed the skin with gauze. The patient tolerated the procedure well. he was covered with dry dressings and taken to the recovery room. [facility] 09-27-2023 Plan of care note Problem: Patient Care Overview Goal: Plan of Care Review Outcome: Progressing Toward Goal Goal: Individualization & Mutuality Outcome: Progressing Toward Goal Goal: Discharge Needs Assessment Outcome: Progressing Toward Goal Goal: Interdisciplinary Rounds/Family Conf Outcome: Progressing Toward Goal Problem: Surgery Nonspecified (Adult) Goal: Signs and Symptoms of Listed Potential Problems Will be Absent, Minimized or Managed (Surgery Nonspecified) Description: Signs and symptoms of listed potential problems will be absent, minimized or managed by discharge/transition of care (reference Surgery Nonspecified (Adult) CPG). Outcome: Progressing Toward Goal [facility] 09-27-2023 Nurse Note Skin assessment completed by Noreen GALLO and Marie RN upon arrival to the floor. Pt had incision midline on his abdomin covered by dressing, a BRAD drain on the right side of abdomin and dry skin on his feet. No other skin issues noted. 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 Placement of BRAD drain. PRIMARY CLOSURE No INTRAOPERATIVE FINDINGS Invasion of cancer into the root of the small bowel mesentery. With associated abscess cavity due to perforation. SURGEON Surgeon(s) and Role: * Leida Lui MD - Primary * Kiesha Dave MD - Assisting ANESTHESIOLOGIST Anesthesiologist: Adriel Deng MD; Evangelista Cleary MD ADMISSIONS REPRESENTATIVE: No Jones APRN-ADMISSIONS REPRESENTATIVE [employer] Back Liner Assisting: Cecilia Salmon MD SURGICAL STAFF Clip Bolter And Wrapper: Sudheer Broderick RN Relief Clip Bolter And Wrapper: Noreen Ross RN Relief Scrub: Gracia Guerin Fellow: Liliana Costa MD Patient Safety Attendant: Stefani Cash COMPLICATIONS None ESTIMATED BLOOD LOSS 100 ml SPECIMENS As below ID Type Source Tests Collected by Time Destination 1 : Right colon Permanent SURG PATH SURG PATH REQUEST Leida Lui MD 09/27/2023 1122 Kiesha Dave MD September 27, 2023 12:35 PM [facility] 09-27-2023 Progress note Formatting of t his note might be different from the original. I certify that this patient requires inpatient services at this time. I anticipate the expected length of stay will include at least two midnights. Current treatment plan includes recovery from GI surgery for rectal cancer. Plans for post hospitalization care will be discharge to home. [facility] Work Phone: 09-27-2023 Nurse Surgical operation note 1037-Family notified of procedure start time. 1215-Family updated. 1229-Family called to be placed into consult room. Patient transported to PACU in stable condition with anesthesia personnel at bedside. Report given at bedside to FINANCIAL REPORTING ADVISOR. [facility] 09-27-2023 Nurse Note 1037-Family notified of procedure start time. 1215-Family updated. 1229-Family called to be placed into consult room. Patient transported to PACU in stable condition with anesthesia personnel at bedside. Report given at bedside to FINANCIAL REPORTING ADVISOR. Pt has history of chemo, last done June 2023. Pt has right chest port, right shoulder replacement and left ankle hardware. Denies history of seizures. documented in this encounter [facility] 09-27-2023 History and physical note HPI: 83 y.o. 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 New symptoms: none Past Medical History: Diagnosis Date Colon cancer Nephrolithiasis Ventral hernia Past Surgical History: Procedure Laterality Date ARTHROPLASTY SHOULDER TOTAL Right 01/29/2015 Laterality: Right; Surgeon: Renuka Cabello MD; Location: [facility] MAIN OR ANKLE ARTHROSCOPY Left ankle COLECTOMY ENDOSCOPY CARPAL TUNNEL RELEASE LITHOTRIPSY ROTATOR CUFF REPAIR R shoulder Family History Problem Relation Age of Onset Cancer- Other Father Stroke Father Other - Specify Mother ALS Social History Tobacco Use Smoking status: Never Smokeless tobacco: Never Vaping Use Vaping Use: Never used Substance Use Topics Alcohol use: Yes Alcohol/week: 4.0 standard drinks of alcohol Types: 4 Cans of beer per week Comment: occasinally Drug use: No ROS: CP: No SOB: No has No Known Allergies. Current Facility-Administered Medications: cefTRIAXone (ROCEPHIN) 2 g in dextrose 50mL premix IVPB, 2 g, Intravenous, scallop binder to Procedure, Leida Lui MD Heparin injection 5,000 Units, 5,000 Units, Subcutaneous, Once, Leida Lui MD metroNIDAZOLE (FLAGYL) 500 mg in NaCl premix IVPB, 500 mg, Intravenous, scallop binder to Procedure, Leida Lui MD morphine (PF) 200 mcg in sodium chloride (PF) 0.9 % 1 ml (total volume) intrathecal injection, 200 mcg, Intrathecal, scallop binder to Procedure, Cecilia Salmon MD Nalbuphine (NUBAIN) injection 2.5 mg, 2.5 mg, Intravenous, Q4H PRN, Cecilia Salmon MD Sodium chloride 0.9% IV solution, , Intravenous, Continuous, Leida Lui MD, Last Rate: 50 mL/hr at 09/27/23820, New Bag at 09/27/23820 Exam BP 137/63 (BP Location: Right arm, BP Position: Lying) Pulse 96 Temp 97.7 F (36.5 C) (Oral) Resp 16 Ht 1.88 m (6' 2 ) Wt 97.4 kg (214 lb 11.2 oz) SpO2 94% BMI 27.57 kg/m Smoking Status Never Body mass index is 27.57 kg/m . General appearance: well Lungs: ctab Heart: rrr Abdomen: soft Tests none A/ recurrent colon cancer in transverse mesentery lymph nodes. P/ Excision today via right colectomy We discussed the risks of surgery, including but not limited to, injury to abdominal organs, incomplete resection, recurrence, anastomotic leak or stricture, along with MT/CVA, infections (especially wound and UTI), DVT/PE and . Increased risk of bleeding and significant complications due to location of the tumor along the proximal branches of the SMA Complexity Any conditions listed below are present on admission unless otherwise specified. Metastatic Cancer, Location of Metastasis: transverse colon lymph nodes - excision in OR [facility] 09-27-2023 History and physical note HPI: 83 y.o. 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 New symptoms: none Past Medical History: Diagnosis Date Colon cancer Nephrolithiasis Ventral hernia Past Surgical History: Procedure Laterality Date ARTHROPLASTY SHOULDER TOTAL Right 01/29/2015 Laterality: Right; Surgeon: Renuka Cabello MD; Location: [facility] MAIN OR ANKLE ARTHROSCOPY Left ankle COLECTOMY ENDOSCOPY CARPAL TUNNEL RELEASE LITHOTRIPSY ROTATOR CUFF REPAIR R shoulder Family History Problem Relation Age of Onset Cancer- Other Father Stroke Father Other - Specify Mother ALS Social History Tobacco Use Smoking status: Never Smokeless tobacco: Never Vaping Use Vaping Use: Never used Substance Use Topics Alcohol use: Yes Alcohol/week: 4.0 standard drinks of alcohol Types: 4 Cans of beer per week Comment: occasinally Drug use: No ROS: CP: No SOB: No has No Known Allergies. Current Facility-Administered Medications: cefTRIAXone (ROCEPHIN) 2 g in dextrose 50mL premix IVPB, 2 g, Intravenous, scallop binder to Procedure, Leida Lui MD Heparin injection 5,000 Units, 5,000 Units, Subcutaneous, Once, Leida Lui MD metroNIDAZOLE (FLAGYL) 500 mg in NaCl premix IVPB, 500 mg, Intravenous, scallop binder to Procedure, Leida Lui MD morphine (PF) 200 mcg in sodium chloride (PF) 0.9 % 1 ml (total volume) intrathecal injection, 200 mcg, Intrathecal, scallop binder to Procedure, Cecilia Salmon MD Nalbuphine (NUBAIN) injection 2.5 mg, 2.5 mg, Intravenous, Q4H PRN, Cecilia Salmon MD Sodium chloride 0.9% IV solution, , Intravenous, Continuous, Leida Lui MD, Last Rate: 50 mL/hr at 09/27/23820, New Bag at 09/27/23820 Exam BP 137/63 (BP Location: Right arm, BP Position: Lying) Pulse 96 Temp 97.7 F (36.5 C) (Oral) Resp 16 Ht 1.88 m (6' 2 ) Wt 97.4 kg (214 lb 11.2 oz) SpO2 94% BMI 27.57 kg/m Smoking Status Never Body mass index is 27.57 kg/m . General appearance: well Lungs: ctab Heart: rrr Abdomen: soft Tests none A/ recurrent colon cancer in transverse mesentery lymph nodes. P/ Excision today via right colectomy We discussed the risks of surgery, including but not limited to, injury to abdominal organs, incomplete resection, recurrence, anastomotic leak or stricture, along with MT/CVA, infections (especially wound and UTI), DVT/PE and . Increased risk of bleeding and significant complications due to location of the tumor along the proximal branches of the SMA Complexity Any conditions listed below are present on admission unless otherwise specified. Metastatic Cancer, Location of Metastasis: transverse colon lymph nodes - excision in OR documented in this encounter [facility] 09-27-2023 Hospital Discharg e instructions Bernardo Aldana RN - 09/27/2023 8:32 AM EST COLORECTAL ADDITIONAL CONTACTS For Concerns During Weekend or Evening Hours: -If you have questions or concerns call and ask the tunnel drier operator to page the surgical scrub technician applications scientist. Reminder: [employer] messaging goes unmonitored during evenings and weekends. Any concerns or questions during this time, please call using instructions above. Clinic Office Main Number: [phone] Service Car Operator: Gloria Amaya ([facility]) SW: Arcelia Glass ([facility]) ENTEROSTOMAL THERAPY RN + OSTOMY Clinic+ Nishok Adrian Sandy MD - 09/27/2023 8:32 AM EST Pain Medication A prescription for pain medicine may be sent home with you. Do not drive while taking prescription pain medicine. Eat when taking pain medicines to avoid nausea. When your pain decreases switch to over the counter acetaminophen, like Tylenol. Follow the dose as label directs. ANTICOAGULATION: LOVENOX Lovenox Injection Lovenox, a brand of Enoxaparin is a blood thinning medicine that has been prescribed for you to prevent and treat blood clots. While taking this medicine: Make sure your doctor and dentist are aware that you are on Lovenox. Ask your doctor or pharmacist before using any other medicine, including [id number] medicines, vitamins, and herbal products. Avoid taking aspirin or medicine that contains aspirin, while on a blood thinning medicine unless your doctor tells you to. Your doctor will need to check you often while you are on this medicine. Be sure to keep appointments. Your doctor will prescribe your exact dose and tell you how often it should be given. You may be taught how to give this medicine at home. Make sure you understand all instructions before giving yourself an injection. Refer to your handouts about Lovenox/Enoxaparin and doing the injection. Call your doctor or nurse with other questions or concerns. While On Blood Thinners While on blood thinning medicines you have a higher risk of bleeding. Follow these bleeding precautions: Plan a safe environment at home. Arrange furniture to reduce falls. Get plenty of rest. Ask for help with walking if unsteady on feet. Avoid activities where you could fall, get bumps, or cut yourself. Do not go barefoot. Use an electric razor for shaving. Report signs of bleeding to your doctor right away. These may include: Heavy bleeding from gums when brushing teeth , Urine looks dark brown or red , Stool looks black or tarry, Bruising, unusual pain, swelling or headache and Bleeding from cuts, or a nosebleed that does not stop Check your skin every day for new cuts, bruises, or injuries. Apply constant pressure to any cut for 3 to 5 minutes to stop bleeding. Seek medical help right away if you continue to bleed or notice any unusual bleeding. Aldana RN - 09/27/2023 8:32 AM EST Activity No Driving for two weeks. No Driving while on pain medications. No lifting over 10 pounds for 6 weeks. No pushing, pulling or straining of abdominal muscles for 6 weeks. Activity as tolerated. Walking is encouraged however no strenuous exercise. You may shower. Do not take a tub bath, go swimming, or use a hot tub until instructed to do so. Aldana RN - 09/27/2023 8:32 AM EST For the next 6 weeks follow the below diet: Low Fiber Diet A diet low in fiber can help keep your stomach and bowels from being irritated. This diet provides foods that are non-irritating and easily digested. If carefully planned, this diet can provide you with most nutrients you need to be healthy. However, over a long period of time, you may find it hard to eat enough fruits and vegetables. Your diet may also be too low in calcium. Talk to your doctor or dietitian about taking a multivitamin or liquid nutritional supplement. Bread Choose breads without seeds or nuts. Foods allowed: Breads, rolls, pancakes, waffles, and crackers made with enriched, refined white flour Soda crackers Trisha Toasts Foods to avoid: Bread containing bran or coarse whole grain Rolls, pancakes, waffles, and crackers made with whole grains Cereals, Pasta, Grains, and Potatoes Choose grain foods with less than 2 grams of dietary fiber per serving. Foods allowed: Refined cooked cereal, such as Cream of Rice, Cream of Wheat, grits, strained oatmeal, Malt-O-Meal Dry cereal, such as cornflakes, puffed rice, Rice Krispies, Honey Smacks, Special K White flour White potatoes, without skin, prepared any way, except fried Mashed sweet potatoes, without skin White rice White pasta Foods to avoid: Whole grain or bran cereal, such as shredded wheat, All Bran, Fiber One, Nutri-Grain, and granola Popcorn Fried potatoes or other substitutes not listed as allowed Brown and wild rice Potato skins Whole wheat pasta products Desserts / Sweets Foods allowed: Gomez food and sponge cakes Plain cakes with simple frosting Plain cookies Ice cream, sherbet Fruit Whips Gelatin desserts Puddings Custard Sugar Syrup Honey Jelly Molasses Hard candy Foods to avoid: Rich pastries Cakes and puddings Desserts, which contain nuts, coconut, or fruits that are unapproved All fruit not listed as allowed Jams, preserves, and marmalade Candy with nuts, raisins, or fruits are not allowed Vegetables Foods allowed: Well cooked vegetables Vegetables without skin or seeds Pureed vegetables Vegetable juices Foods to avoid: All raw vegetables, including lettuce Cooked spinach or greens Fruits and Juices Foods allowed: Cooked fruits without skin or seeds Applesauce Pears, peaches Peeled apricots Lengby Pao cherries Ripe banana Ripe avocado Fruit juice without pulp Pureed fruits Foods to avoid: Dried fruit Fruit skin and seeds Pineapple juice Meat and Other Protein Foods Foods allowed: Tender beef, baez, veal, pork Poultry, fish Eggs prepared any way except fried Smooth nut butters (peanut, almond, sunflower seed, etc.) Foods to avoid: Pickled, spiced, smoked meat Shellfish Fried meats, fish, or eggs Tough meats or meats with gristle Sausage Nuts and seeds Beans, peas and lentils Cheese and Milk Products If you are lactose intolerant, avoid milk and foods made with milk. Foods allowed: Cottage cheese Cream cheese Any cheese that has no dried fruits and nuts Yogurt with active cultures Ice cream Note: Include all of these in milk allowance Foods to avoid: Cheese with dried fruits and nuts Yogurt or ice cream with berries, nuts or dried fruits Fats When possible, choose healthier oils like olive or canola oil. Foods allowed: Avocado Butter Cream Margarine Mild salad dressing Vegetable oils Foods to avoid: None Soups Foods allowed: Broth and strained soups made with allowed ingredients Foods to avoid: All other soups Beverages Most people need 8 to 10 cups of fluid each day. If you are lactose intolerant, avoid milk and foods made with milk. Foods allowed: Cow, soy, rice, and almond milk and milk products Choose low fat or fat free milks Coffee Decaffeinated coffee Tea [place] Carbonated beverages Fruit juice (except prune juice) Foods to avoid: All other beverages Miscellaneous Foods allowed: Salt used in moderation Mild spices Gravy Cream sauces Foods to avoid: Rich, highly spiced, or seasoned foods and sauces Fried foods Pickles Olives Giorgio 1997 - [birth year] 2020, [facility]. This handout is for informational purposes only. Talk with your doctor or healthcare team if you have any questions about your care. For more health information, call the Library for Health Information at [phone] or email: [email or web address]. Bernardo Aldana RN - 09/27/2023 8:32 AM EST For Concerns During Weekend or Evening Hours: -If you have questions or concerns call and ask the tunnel drier operator to have the general surgery chief resident paged. Reminder: [employer] messaging goes unmonitored during evenings and weekends. Any concerns or questions during this time, please call using instructions above. Clinic Office Main Number: [phone] NOTIFY PHYSICIAN: SYMPTOMS WOUND INFECTION - Increase in pain in or around wound - Change in the amount of drainage - Change in the color of drainage - Change in the odor of drainage - Warmth in the tissues around the wound - Red streaks on the skin near the wound - Fever (temperature greater than 101 degrees F) - Incision separates or opens up UNRELIEVED PAIN + - Increased or unrelieved pain NAUSEA/VOMITING + - Nausea and vomiting that continues for more than 24 hours - Not able to keep medicine down - Not able to keep fluids down SYMPTOMS OF DVT + DVT = Deep Vein Thrombus, or Blood Clot -Any Tender, Swollen, or Reddened Areas from Your Groin to Your Heels -Numbness or Tingling In Groin or Calf -The Skin on Your Leg Looks Pale or Blue or It Feels Cold To Touch -Numbness or Tingling In Groin or Calf -Any Shortness of Breath -Chest Pain -Fever or Chills SYMPTOMS OF GI BLEED + Call your doctor or nurse if you have signs of slow blood loss such as: -Black tarry bowel movements -Cold hands and feet -Weakness -Dizzyness Call 911 if you suddenly have signs of blood loss such as: -Vomiting blood -Fast heart rate -Feeling faint or blacking out -Passing bright red blood from your rectum Gloria Amaya RN - 09/27/2023 8:32 AM EST Wound Vacuum Dressing Your wound vacuum dressing is to be changed by a home care nurse 3 times a week as instructed. Set vacuum at 125 mmHg continuous negative pressure. Use stomahesive paste in creases if needed to seal the vacuum dressing. If wound vacuum fails to maintain suction for 2 hours, remove old dressing and switch to normal saline wet to dry dressings every 12 hours until vacuum dressing can be restarted. When you return to the clinic to have your wound checked, the clinic nurses will not replace the vacuum dressing. You will need to make arrangements with your homecare agency to have the nurse reapply the dressing after your appointment. TUBE/DRAIN CARE - Clean around the tube with a betadine or alcohol swab, as directed. Apply a clean dressing. Change the dressing around your tube each day or as needed to keep it dry. - Empty, measure, and record output. - Be sure tube lays flat and does not have kinks in it. - Call the office if there are any signs of infection including redness, swelling, pus or if you have a temperature greater than 101. Strip Tubing Gently strip or milk tubing twice a day to keep clots loosened. Start at the body and work down the tube squeezing the tubing with your fingers. Move one hand in front of the other down until you have squeezed the full length of the tube. Call the office if you are not able to clear the clot or clog from the tube. Drain Output - Refer to the handout for drain care. - Empty each drain 1 to 2 times per day. Measure the output and record the output. - If you have more than one drain, be sure to record the drainage amounts for each drain separately. Please record your drain output below and take to your follow-up appointments. Date Drain # Drain# Comments AM PM AM PM ml Color: ml Color: ml Color: ml Color: ml Color: ml Color: ml Color: ml Color: ml Color: ml Color: ml Color: ml Color: ml Color: ml Color: ml Color: ml Color: ml Color: ml Color: ml Color: ml Color: ml Color: ml Color: ml Color: ml Color: ml Color: ml Color: ml Color: ml Color: ml Color: ml Color: ml Color: ml Color: ml Color: ml Color: ml Color: ml Color: ml Color: ml Color: ml Color: ml Color: ml Color: ml Color: ml Color: ml Color: ml Color: ml Color: ml Color: ml Color: ml Color: ml Color: ml Color: ml Color: ml Color: ml Color: ml Color: ml Color: ml Color: ml Color: ml Color: ml Color: Please record your drain output below and take to your follow-up appointments. Date Drain # Drain# Comments AM PM AM PM ml Color: ml Color: ml Color: ml Color: ml Color: ml Color: ml Color: ml Color: ml Color: ml Color: ml Color: ml Color: ml Color: ml Color: ml Color: ml Color: ml Color: ml Color: ml Color: ml Color: ml Color: ml Color: ml Color: ml Color: ml Color: ml Color: ml Color: ml Color: ml Color: ml Color: ml Color: ml Color: ml Color: ml Color: ml Color: ml Color: ml Color: ml Color: ml Color: ml Color: ml Color: ml Color: ml Color: ml Color: ml Color: ml Color: ml Color: ml Color: ml Color: ml Color: ml Color: ml Color: ml Color: ml Color: ml Color: ml Color: ml Color: ml Color: ml Color: ml Color: Please record your drain output below and take to your follow-up appointments. Date Drain # Drain# Comments AM PM AM PM ml Color: ml Color: ml Color: ml Color: ml Color: ml Color: ml Color: ml Color: ml Color: ml Color: ml Color: ml Color: ml Color: ml Color: ml Color: ml Color: ml Color: ml Color: ml Color: ml Color: ml Color: ml Color: ml Color: ml Color: ml Color: ml Color: ml Color: ml Color: ml Color: ml Color: ml Color: ml Color: ml Color: ml Color: ml Color: ml Color: ml Color: ml Color: ml Color: ml Color: ml Color: ml Color: ml Color: ml Color: ml Color: ml Color: ml Color: ml Color: ml Color: ml Color: ml Color: ml Color: ml Color: ml Color: ml Color: ml Color: ml Color: ml Color: ml Color: ml Color: Please record your drain output below and take to your follow-up appointments. Date Drain # Drain# Comments AM PM AM PM ml Color: ml Color: ml Color: ml Color: ml Color: ml Color: ml Color: ml Color: ml Color: ml Color: ml Color: ml Color: ml Color: ml Color: ml Color: ml Color: ml Color: ml Color: ml Color: ml Color: ml Color: ml Color: ml Color: ml Color: ml Color: ml Color: ml Color: ml Color: ml Color: ml Color: ml Color: ml Color: ml Color: ml Color: ml Color: ml Color: ml Color: ml Color: ml Color: ml Color: ml Color: ml Color: ml Color: ml Color: ml Color: ml Color: ml Color: ml Color: ml Color: ml Color: ml Color: ml Color: ml Color: ml Color: ml Color: ml Color: ml Color: ml Color: ml Color: ml Color: Gloria Amaya RN - 10/01/2023 11:08 AM EST [employer] (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 Pt has right chest port, right shoulder replacement and left ankle hardware. Denies history of seizures. [facility] 09-13-2023 History and physical note Images from the original note were not included. History of Present Illness Mr. Gandhi is a 83 y.o. male is being evaluated in [facility] due to his medical condition(s) Colon cancer- presents for surgery, Surgery site is close to superior mesenteric artery and vein. In 2019 he was also treated for colon cancer at [facility]. He completed his chemotherapy about 6 weeks ago. Nephrolithiasis- last episode 2017, He has chronic renal stones, Has had lithotripsy in the past. Denies symptoms now. Hypertension - stable on medication which increases his risk for perioperative complications. 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 none Does the patient have a central line - yes, has a R sided port, Spring 2022, placed at [facility] BP 148/66 Pulse 83 Temp 98.2 F (36.8 C) Resp 18 Ht 1.88 m (6' 2 ) Wt 100.8 kg (222 lb 3.2 oz) SpO2 98% BMI 28.53 kg/m Smoking Status Never ANESTHESIA/AIRWAY Anesthesia alerts -ERS, R sided port, GAURI risk Personal history of problems related to anesthesia (ex.Malignant Hyperthermia): no Family History of problems related to anesthesia (ex.Malignant Hyperthermia: no Pacer/AICD/DBS: no Glaucoma: no Beta Evonne: no Diabetic Mellitus: no GAURI: no STOP-BANG Risk Assessment (3 or more YES responses is high risk) Do you snore - Yes Are you frequently tired during the day? - No Have you been observed gasping or choking while asleep? - No Do you have high blood pressure? - Yes Age more than 50? - Yes Gender male? - Yes Neck circumference greater than 40 cm? - Yes Neck Circumference (cm): 43 BMI more then 35? - No Body mass index is 28.53 kg/m . Mallampati class - 2 TM Distance - 2 FB Oral Opening - 2 FB Teeth - lacking several teeth, poor condition, Lost his bridge Cervical range of motion - minimally limited Neck circumference - Neck Circumference (cm): 43 Allergies and adverse drug reactions No Known Allergies Anesthesia/Airway A/P - no problems anticipated Placement Date: 01/29/15; Placement Time: 1149; Preoxygenation: 100 % O2; Level of Consiousness: asleep; Mask Ventilation: easy; Oral Airway Inserted: Guedel - 9; Airway Route: oral; Laryngoscope Blade: MAC; Video Laryngoscope: Purdy; Blade Size: 3; Cormack-Lehane Grade: III; Number of Attempts: 2 (view with mac was grade 3. Attempted to pass tube under epiglottis. Resulted in esophageal intubation. switched to purdy grade 1 view placed easily with stylet. Positive ETCO2); Tube Type: endotracheal tube; Tube Size(single lumen): 7.0; Airway Adjunct: stylet; Primary Confirmation: +ETCO2, bilateral breath sounds auscultated, visualization through the cords; Tube Secured At (cm): 22; Tube Reference Point: lip; Tracheal Cuff: Air; Tube Secured by: tape, benzoin; Complications: no; Removal Date: 01/29/15; Removal Time: 1622 CARDIOVASCULAR Cardiovascular A/P - This patient is in a low risk category as calculated using the RCRI. RCRI score is 0 points placing the patient at a 4% cardiac risk in the perioperative setting Functional status - : moderate- lives alone, aishwarya lives with him, can walk up 14 steps. He has steps in his home. Blows leaves, He weed wacks the yard, he uses a can. He denies chest pain or shortness of breath. BP Readings from Last 3 Encounters: 09/13/23 148/66 08/10/23 158/74 03/08/23 165/71 1. Hypertension - stable on medication 2. History of heart murmur age 7. PLAN: he has no history of coronary artery disease or cerebral vascular accident. No cardiovascular stents. He is active and denies symptoms of angina. I have requested the echocardiogram from [facility]. CARDIAC TESTING: ECG - 09/13/2023, normal sinus rhythm , rate 66, ST segments are within normal limits. Echocardiogram 10/20/2021 from [facility], Normal EF, Mild aortic stenosis PULMONARY Social History Tobacco Use Smoking Status Never Smokeless Tobacco Never Pulmonary A/P - no history of lung disease. The patient does not vape. SUBSTANCE ABUSE Social History Substance and Sexual Activity Alcohol Use Yes Alcohol/week: 4.0 standard drinks of alcohol Types: 4 Cans of beer per week Comment: occasinally Social History Substance and Sexual Activity Drug Use No Substance Abuse A/P - he states he stopped all ETOH when he started chemotherapy. Pt advised to avoid illicit Rx use, substance abuse, stop smoking leading up to day of surgery due to delayed wound healing. CLOTTING/BLEEDING History of DVT/PE - no Are you a Jehovah Witness? - no In case of surgeons plan or unforseen emergency, are you okay with receiving blood products? - yes Clotting Bleeding A/P - no issues, Recommend standard DVT/PE prophylaxis postoperatively. DIABETES Diabetes A/P - none No results found for: HGBA1C ADDITIONAL DIAGNOSES OF CONCERN MEDICATIONS Current Outpatient Medications Medication Sig bisacodyl [address] Take all 4 tablets at 11am the day before surgery (Patient taking differently: As directed. Take all 4 tablets at 11am the day before surgery) chlorhexidine 4 % Liquid Use as directed to shower the night before surgery and the morning before surgery. (Patient taking differently: Apply topically As directed. Use as directed to shower the night before surgery and the morning before surgery.) Lisinopril 5 MG tablet Take 1 tablet by mouth daily every morning. metroNIDAZOLE 500 MG tablet Take 2 tablets (1000 mg) at 1pm, 2pm, and 9pm the day before your procedure. (Patient taking differently: Take by mouth As directed. Take 2 tablets (1000 mg) at 1pm, 2pm, and 9pm the day before your procedure.) Neomycin 500 MG tablet Take 2 tablets (1000 mg) at 1pm, 2pm, and 9pm the day before your procedure. (Patient taking differently: Take by mouth As directed. Take 2 tablets (1000 mg) at 1pm, 2pm, and 9pm the day before your procedure.) Polyethylene glycol 17 GM/SCOOP Powder powder 11 AM: Take entire contents over 2 hours as instructed. (Patient taking differently: Take by mouth As directed. 11 AM: Take entire contents over 2 hours as instructed.) Medication A/P - Instructions for preoperative medications given to the patient in AVS. LABS Orders Placed This Encounter CBC, EDIF, PLATELET CHEM 6 (LYTES, BUN CREA) COMPREHENSIVE METABOLIC PANEL CBC AND ELECTRONIC DIFF Type and Cross -Preadmission [place] ECG, CLINIC PERFORMED Lab A/P - Labs ordered and reviewed. Lab Results Component Value Date ABORHDTYPE O POS 09/13/2023 Lab Results Component Value Date SODIUM 137 09/13/2023 POTASSIUM 4.0 09/13/2023 CHLORIDE 105 09/13/2023 CO2 23 09/13/2023 BUN 16 09/13/2023 CREATSERUM 0.97 09/13/2023 Lab Results Component Value Date WBC 6.04 09/13/2023 HGB 10.0 (L) 09/13/2023 HCT 31.9 (L) 09/13/2023 PLATELET 204 09/13/2023 MCV 90.9 09/13/2023 No results found for: TSH , [id number] , [id number] , TSHBASELINE , TSHULTRASEN , T3FREE , [id number] , [id number] , A8FWLEPH , T4FREE , TPOAB Lab Results Component Value Date GLUCOSE 108 (H) 09/13/2023 Lab Results Component Value Date ALT 17 09/13/2023 AST 17 09/13/2023 ALKPHOS 86 09/13/2023 BILITOTAL 1.1 09/13/2023 OPTIMIZED AT THIS TIME Does pt meet criteria for liberalized NPO? no. If no, why? ASA 3 or more DO Puneet Olivera OPAC Perioperative Clinic [facility] [address] [facility] Review of Systems Review of Systems Constitutional: Negative for chills and fever. HENT: Negative for nosebleeds and sore throat. Eyes: Negative for pain. Respiratory: Negative for cough. Cardiovascular: Negative for chest pain, palpitations and leg swelling. Gastrointestinal: Negative for constipation, nausea and vomiting. Endocrine: Negative for polydipsia. Genitourinary: Negative for dysuria and urgency. Musculoskeletal: Negative for myalgias and neck pain. Skin: Negative for rash. Neurological: Negative for dizziness, seizures and headaches. Hematological: Does not bruise/bleed easily. Psychiatric/Behavioral: Negative for suicidal ideas. Physical Examination (PHYSEXAM)Physical Exam Vitals and nursing note reviewed. Constitutional: General: He is not in acute distress. Appearance: He is not toxic-appearing. HENT: Head: Normocephalic and atraumatic. Nose: Nose normal. Eyes: General: Right eye: No discharge. Pupils: Pupils are equal, round, and reactive to light. Neck: Trachea: Trachea normal. Cardiovascular: Rate and Rhythm: Normal rate and regular rhythm. No extrasystoles are present. Chest Wall: PMI is not displaced. Heart sounds: Murmur heard. Systolic murmur is present with a grade of 2/6. Pulmonary: Effort: Pulmonary effort is normal. No respiratory distress. Chest: Chest wall: No tenderness. Abdominal: Palpations: Abdomen is soft. There is no mass. Tenderness: There is no abdominal tenderness. There is no guarding or rebound. Hernia: No hernia is present. Musculoskeletal: General: No deformity. Skin: General: Skin is warm and dry. Nails: There is no clubbing. Neurological: Mental Status: He is oriented to person, place, and time. Mental status is at baseline. Psychiatric: Mood and Affect: Mood normal. Behavior: Behavior normal. Thought Content: Thought content normal. Judgment: Judgment normal. Blood pressure 148/66, pulse 83, temperature 98.2 F (36.8 C), resp. rate 18, height 1.88 m (6' 2 ), weight 100.8 kg (222 lb 3.2 oz), SpO2 98 %. Past Medical History: Diagnosis Date Colon cancer Nephrolithiasis Ventral hernia Past Surgical History: Procedure Laterality Date ARTHROPLASTY SHOULDER TOTAL Right 01/29/2015 Laterality: Right; Surgeon: Renuka Cabello MD; Location: [facility] MAIN OR ANKLE ARTHROSCOPY Left ankle COLECTOMY ENDOSCOPY CARPAL TUNNEL RELEASE LITHOTRIPSY ROTATOR CUFF REPAIR R shoulder Patient Care Team: Luciano Huertas MD as PCP - [facility] as Oncologist (Medical Oncology) Kenya Hodges, RN as Registered Nurse Family History Problem Relation Age of Onset Cancer- Other Father Stroke Father Other - Specify Mother ALS Social History Socioeconomic History Marital status: Tobacco Use Smoking status: Never Smokeless tobacco: Never Vaping Use Vaping Use: Never used Substance and Sexual Activity Alcohol use: Yes Alcohol/week: 4.0 standard drinks of alcohol Types: 4 Cans of beer per week Comment: occasinally Drug use: No [facility] 09-13-2023 History and physical note Images from the original note were not included. History of Present Illness Mr. Gandhi is a 83 y.o. male is being evaluated in [facility] due to his medical condition(s) Colon cancer- presents for surgery, Surgery site is close to superior mesenteric artery and vein. In 2019 he was also treated for colon cancer at [facility]. He completed his chemotherapy about 6 weeks ago. Nephrolithiasis- last episode 2017, He has chronic renal stones, Has had lithotripsy in the past. Denies symptoms now. Hypertension - stable on medication which increases his risk for perioperative complications. 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 none Does the patient have a central line - yes, has a R sided port, Spring 2022, placed at [facility] BP 148/66 Pulse 83 Temp 98.2 F (36.8 C) Resp 18 Ht 1.88 m (6' 2 ) Wt 100.8 kg (222 lb 3.2 oz) SpO2 98% BMI 28.53 kg/m Smoking Status Never ANESTHESIA/AIRWAY Anesthesia alerts -ERS, R sided port, GAURI risk Personal history of problems related to anesthesia (ex.Malignant Hyperthermia): no Family History of problems related to anesthesia (ex.Malignant Hyperthermia: no Pacer/AICD/DBS: no Glaucoma: no Beta Evonne: no Diabetic Mellitus: no GAURI: no STOP-BANG Risk Assessment (3 or more YES responses is high risk) Do you snore - Yes Are you frequently tired during the day? - No Have you been observed gasping or choking while asleep? - No Do you have high blood pressure? - Yes Age more than 50? - Yes Gender male? - Yes Neck circumference greater than 40 cm? - Yes Neck Circumference (cm): 43 BMI more then 35? - No Body mass index is 28.53 kg/m . Mallampati class - 2 TM Distance - 2 FB Oral Opening - 2 FB Teeth - lacking several teeth, poor condition, Lost his bridge Cervical range of motion - minimally limited Neck circumference - Neck Circumference (cm): 43 Allergies and adverse drug reactions No Known Allergies Anesthesia/Airway A/P - no problems anticipated Placement Date: 01/29/15; Placement Time: 1149; Preoxygenation: 100 % O2; Level of Consiousness: asleep; Mask Ventilation: easy; Oral Airway Inserted: Guedel - 9; Airway Route: oral; Laryngoscope Blade: MAC; Video Laryngoscope: Purdy; Blade Size: 3; Cormack-Lehane Grade: III; Number of Attempts: 2 (view with mac was grade 3. Attempted to pass tube under epiglottis. Resulted in esophageal intubation. switched to purdy grade 1 view placed easily with stylet. Positive ETCO2); Tube Type: endotracheal tube; Tube Size(single lumen): 7.0; Airway Adjunct: stylet; Primary Confirmation: +ETCO2, bilateral breath sounds auscultated, visualization through the cords; Tube Secured At (cm): 22; Tube Reference Point: lip; Tracheal Cuff: Air; Tube Secured by: tape, benzoin; Complications: no; Removal Date: 01/29/15; Removal Time: 1622 CARDIOVASCULAR Cardiovascular A/P - This patient is in a low risk category as calculated using the RCRI. RCRI score is 0 points placing the patient at a 4% cardiac risk in the perioperative setting Functional status - : moderate- lives alone, aishwarya lives with him, can walk up 14 steps. He has steps in his home. Blows leaves, He weed wacks the yard, he uses a can. He denies chest pain or shortness of breath. BP Readings from Last 3 Encounters: 09/13/23 148/66 08/10/23 158/74 03/08/23 165/71 1. Hypertension - stable on medication 2. History of heart murmur age 7. PLAN: he has no history of coronary artery disease or cerebral vascular accident. No cardiovascular stents. He is active and denies symptoms of angina. I have requested the echocardiogram from [facility]. CARDIAC TESTING: ECG - 09/13/2023, normal sinus rhythm , rate 66, ST segments are within normal limits. Echocardiogram 10/20/2021 from [facility], Normal EF, Mild aortic stenosis PULMONARY Social History Tobacco Use Smoking Status Never Smokeless Tobacco Never Pulmonary A/P - no history of lung disease. The patient does not vape. SUBSTANCE ABUSE Social History Substance and Sexual Activity Alcohol Use Yes Alcohol/week: 4.0 standard drinks of alcohol Types: 4 Cans of beer per week Comment: occasinally Social History Substance and Sexual Activity Drug Use No Substance Abuse A/P - he states he stopped all ETOH when he started chemotherapy. Pt advised to avoid illicit Rx use, substance abuse, stop smoking leading up to day of surgery due to delayed wound healing. CLOTTING/BLEEDING History of DVT/PE - no Are you a Jehovah Witness? - no In case of surgeons plan or unforseen emergency, are you okay with receiving blood products? - yes Clotting Bleeding A/P - no issues, Recommend standard DVT/PE prophylaxis postoperatively. DIABETES Diabetes A/P - none No results found for: HGBA1C ADDITIONAL DIAGNOSES OF CONCERN MEDICATIONS Current Outpatient Medications Medication Sig bisacodyl [address] Take all 4 tablets at 11am the day before surgery (Patient taking differently: As directed. Take all 4 tablets at 11am the day before surgery) chlorhexidine 4 % Liquid Use as directed to shower the night before surgery and the morning before surgery. (Patient taking differently: Apply topically As directed. Use as directed to shower the night before surgery and the morning before surgery.) Lisinopril 5 MG tablet Take 1 tablet by mouth daily every morning. metroNIDAZOLE 500 MG tablet Take 2 tablets (1000 mg) at 1pm, 2pm, and 9pm the day before your procedure. (Patient taking differently: Take by mouth As directed. Take 2 tablets (1000 mg) at 1pm, 2pm, and 9pm the day before your procedure.) Neomycin 500 MG tablet Take 2 tablets (1000 mg) at 1pm, 2pm, and 9pm the day before your procedure. (Patient taking differently: Take by mouth As directed. Take 2 tablets (1000 mg) at 1pm, 2pm, and 9pm the day before your procedure.) Polyethylene glycol 17 GM/SCOOP Powder powder 11 AM: Take entire contents over 2 hours as instructed. (Patient taking differently: Take by mouth As directed. 11 AM: Take entire contents over 2 hours as instructed.) Medication A/P - Instructions for preoperative medications given to the patient in AVS. LABS Orders Placed This Encounter CBC, EDIF, PLATELET CHEM 6 (LYTES, BUN CREA) COMPREHENSIVE METABOLIC PANEL CBC AND ELECTRONIC DIFF Type and Cross -Preadmission [place] ECG, CLINIC PERFORMED Lab A/P - Labs ordered and reviewed. Lab Results Component Value Date ABORHDTYPE O POS 09/13/2023 Lab Results Component Value Date SODIUM 137 09/13/2023 POTASSIUM 4.0 09/13/2023 CHLORIDE 105 09/13/2023 CO2 23 09/13/2023 BUN 16 09/13/2023 CREATSERUM 0.97 09/13/2023 Lab Results Component Value Date WBC 6.04 09/13/2023 HGB 10.0 (L) 09/13/2023 HCT 31.9 (L) 09/13/2023 PLATELET 204 09/13/2023 MCV 90.9 09/13/2023 No results found for: TSH , [id number] , [id number] , TSHBASELINE , TSHULTRASEN , T3FREE , [id number] , [id number] , [id number] , T4FREE , TPOAB Lab Results Component Value Date GLUCOSE 108 (H) 09/13/2023 Lab Results Component Value Date ALT 17 09/13/2023 AST 17 09/13/2023 ALKPHOS 86 09/13/2023 BILITOTAL 1.1 09/13/2023 OPTIMIZED AT THIS TIME Does pt meet criteria for liberalized NPO? no. If no, why? ASA 3 or more DO Puneet Olivera OPAC Perioperative Clinic [facility] [address] [facility] Review of Systems Review of Systems Constitutional: Negative for chills and fever. HENT: Negative for nosebleeds and sore throat. Eyes: Negative for pain. Respiratory: Negative for cough. Cardiovascular: Negative for chest pain, palpitations and leg swelling. Gastrointestinal: Negative for constipation, nausea and vomiting. Endocrine: Negative for polydipsia. Genitourinary: Negative for dysuria and urgency. Musculoskeletal: Negative for myalgias and neck pain. Skin: Negative for rash. Neurological: Negative for dizziness, seizures and headaches. Hematological: Does not bruise/bleed easily. Psychiatric/Behavioral: Negative for suicidal ideas. [facility] Exam Vitals and nursing note reviewed. Constitutional: General: He is not in acute distress. Appearance: He is not toxic-appearing. HENT: Head: Normocephalic and atraumatic. Nose: Nose normal. Eyes: General: Right eye: No discharge. Pupils: Pupils are equal, round, and reactive to light. Neck: Trachea: Trachea normal. Cardiovascular: Rate and Rhythm: Normal rate and regular rhythm. No extrasystoles are present. Chest Wall: PMI is not displaced. Heart sounds: Murmur heard. Systolic murmur is present with a grade of 2/6. Pulmonary: Effort: Pulmonary effort is normal. No respiratory distress. Chest: Chest wall: No tenderness. Abdominal: Palpations: Abdomen is soft. There is no mass. Tenderness: There is no abdominal tenderness. There is no guarding or rebound. Hernia: No hernia is present. Musculoskeletal: General: No deformity. Skin: General: Skin is warm and dry. Nails: There is no clubbing. Neurological: Mental Status: He is oriented to person, place, and time. Mental status is at baseline. Psychiatric: Mood and Affect: Mood normal. Behavior: Behavior normal. Thought Content: Thought content normal. Judgment: Judgment normal. Blood pressure 148/66, pulse 83, temperature 98.2 F (36.8 C), resp. rate 18, height 1.88 m (6' 2 ), weight 100.8 kg (222 lb 3.2 oz), SpO2 98 %. Past Medical History: Diagnosis Date Colon cancer Nephrolithiasis Ventral hernia Past Surgical History: Procedure Laterality Date ARTHROPLASTY SHOULDER TOTAL Right 01/29/2015 Laterality: Right; Surgeon: Renuka Cabello MD; Location: [facility] MAIN OR ANKLE ARTHROSCOPY Left ankle COLECTOMY ENDOSCOPY CARPAL TUNNEL RELEASE LITHOTRIPSY ROTATOR CUFF REPAIR R shoulder Patient Care Team: Luciano Huertas MD as PCP - General Otis Sher [facility] as Oncologist (Medical Oncology) Kenya Hodges, RN as Registered Nurse Family History Problem Relation Age of Onset Cancer- Other Father Stroke Father Other - Specify Mother ALS Social History Socioeconomic History Marital status: Tobacco Use Smoking status: Never Smokeless tobacco: Never Vaping Use Vaping Use: Never used Substance and Sexual Activity Alcohol use: Yes Alcohol/week: 4.0 standard drinks of alcohol Types: 4 Cans of beer per week Comment: occasinally Drug use: No documented in this encounter [facility] 09-13-2023 Instructions Brittny Fitzpatrick LPN - 09/13/2023 2:15 PM EDT Patient Medication Instructions: DO NOT TAKE ANY MEDICATION THE MORNING OF SURGERY. Follow the instructions for your bowel preparation as given by your surgical team. Do not use aspirin starting 10 days prior to surgery. Do not take lisinopril the morning of surgery. If you use an Inhaler/Inhalers on a daily basis, then use your inhaler on the morning of surgery. Refrain from smoking and vaping at least 24 hours prior to surgery. - Do NOT take Herbal Medication (including multi-vitamin, fish oil (Union-3), garlic, Glucosamine - Chondroitin ,gingko, ginseng, Vitamin E, probiotics) vitamins and supplements 2 weeks before surgery, unless otherwise instructed. - Do NOT take Excedrin, ibuprofen, Advil, Celebrex, Voltaren (Diclofenac), Motrin, naproxen, or Aleve, Mobic (Meloxicam) for the 7-14 days before surgery. Acetaminophen (Tylenol) is ok to take up until the day of surgery. Patient Pre-Operative Instructions: Diet Instructions: -NO food or drink after 11 pm the night before surgery except for enough water to take your medications. (No Candy, Mints and/or Gum). Follow all instructions you received from your surgical team regarding nutritional shakes. - Do NOT wear any hearing aids, jewelry, watches, rings, hairpieces, makeup, glasses or contact lenses with you into your surgery. - Shower the night before and the morning of surgery. To lessen your chance of getting an infection after your surgery, you will need to wash your skin with a special soap called 4% Chlorhexidine Gluconate (CHG) before your surgery. Your nurse has given you CHG soap today and written instructions; Getting Your Skin Ready for Surgery . Please review the instructions carefully prior to your surgery. - Do NOT shave, or pluck hair from anywhere near the surgical site one week prior to surgery. - Wall your teeth and rinse your mouth the morning of surgery. - Do NOT bring your dentures or partials with you into surgery. They may be lost. Give them to someone to bring to you after surgery. If you are unable to complete your scheduled testing or appointments made by [facility] please contact [facility] at [phone]. Failure to do so could delay or cancel your surgery. If you become ill, develop a fever, cough, or any type of infection within 14 days of your scheduled surgery, please call the surgeon's office. You may need to have your surgery moved, as we would not want to put you at risk for complications due to an illness. If you are placed on Antibiotics within 1 week of surgery, please notify our team immediately. - If you have Sleep apnea and have a CPAP or BIPAP, then bring your CPAP mask and machine with you to the hospital. Patient identified as being at high risk for sleep apnea. Patient education material for obstructive sleep apnea given and reviewed. Please contact Medical Information Management Department for all records requests. [phone] [phone] AVS/JORGE documented in this encounter [facility] 08-10-2023 History of Presen t illness Narrative Attending Attestation I have seen and examined the patient on 08/10/2023. I reviewed the STICK WELDER's note and agree with the findings and plan of care as documented. My additions and revisions are included. I was present for the entire exam. I saw and evaluated the patient with Bernardo Carlos. I provided a substantive portion of the care for this patient. I personally performed all aspects of the medical decision making for this encounter. I have reviewed and verified this documentation and it accurately reflects our care. Presentation: Overall he is doing pretty well. Exam: He looks quite healthy given his age and medical problems. Data reviewed: We looked at his most recent CT scan which shows a little bit of down staging. It does show also though some air in the tumor. I think it is likely resectable but it will be very close to the mesenteric vessels required for the small bowel. A/P: He will think about the option of open colectomy to try to resect this. We will also discuss him in tumor board to make sure others agree with the plan. COLORECTAL SURGERY CLINIC NOTE BRIEF HISTORY: 82 y.o. 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 Underwent LS transverse colectomy w path as below. Had surveillance and CEA went up. Then had chest CT and PET. Colonoscopy: 03/11 At [place]. Had biopsies that he hasn't heard back about yet. Had one in 07/2022 which was normal Gets mild upper abd pain off and on. No pain. No emesis. Eating normally.82-year-old man with recurrent colon cancer. It is difficult to say whether this is resectable. I have my doubts currently. Based on his PET scan I am concerned that he has major vascular involvement. Plan to start chemotherapy and Re-image in [address] A/P w IV contrast. That will help us see his chemo response but also delineate the vessels better and help determine whether we can resect it. S: Here with his daughter. Completed 16 weeks of chemotherapy on 06/27/23. Low energy, neuropathy has improved. Appetite is okay, but most things don't taste good and has a metallic flavor r/t chemo. Denies nausea/vomiting. Having a BM every 1-2 days without difficulty or bleeding. Per patient, recent CT report indicates lymph nodes as being Unremarkable. No enlarged lymph Nodes , and wondering if this is accurate since PET scan in February. O: Physical Exam: Vitals: 08/10/23 1300 BP: 158/74 Pulse: 61 Weight: 101.8 kg (224 lb 6.4 oz) Height: 1.88 m (6' 2 ) Body mass index is 28.81 kg/m . General: No acute distress. Alert and oriented x 3. Cardiac: Regular rate and rhythm. Pulmonary: Equal chest rise, unlabored breathing. Abdomen: Soft, nontender, nondistended. +umbilical hernia Extremities: No edema. Warm and well-perfused. Normal gait. MSK: No gross deformities. Neurologic: No focal deficits. 04/30/23 05/28/23 Carcinoembryonic Ag 5.0 H 5.5 H Christos Notes 06/25/23: Plan: In consultation with [facility] colorectal surgery and based on NCCN guidelines and up-to-date review of recurrent colorectal cancer advise: 1. Continue systemic therapy was modified FOLFOX 6 for 4 months with 5-FU leucovorin bolus dropped as of cycle 4 due to toxicity. Add Claritin to premedication (experienced a throat sensation shortly after infusion; Benadryl made him too drowsy) 2. Restaging at the conclusion of 4 months of preoperative systemic chemotherapy to schedule late June 2023. 3. Follow-up with surgery at [facility] July [address]23. CT C/A/P 07/09/2023: -redemonstration of a necrotic neoplastic mass contiguous with the posterior aspect of the transverse colon at the anastomotic site. There is modest interval decrease in size from previous CT scan. Bubbles of air within the mass may indicate fistulous connection with the adjacent colon. -no other evdence for masses or lymphadenopathy. No new abnormalities are identified. A/P: Ed Gandhi is a 83 y.o. 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 The mass has had a modest decrease in size since completion of chemotherapy. We discussed disease progression and the risks and benefits associated with surgery and risks and benefits of not having surgery. He was offered surgery with Dr. Lui and he plans to take the next several days to decide if he would like to proceed. Dr. Lui will present his case at tumor board 08/15. Mr. Gandhi agrees with this plan and will call the office if he decides he wants to schedule surgery. I went over his history of present illness independently. Patient was seen, discussed and examined alongside Dr. Lui. All medical and procedural decision making was done by Dr. Lui. [facility] [place] Department of Surgery Division of Colorectal Surgery [facility] Instructions Taylor Gunderson RN - 08/10/2023 1:00 PM EDT Please call Dr Lui when you decide if you want to schedule surgery @ [phone] documented in this encounter [facility] Preop exam for internal medicine- Primary Other specified pre-operative examination Malignant neoplasm of transverse colon Essential hypertension Unspecified essential hypertension Malignant neoplasm of transverse colon [facility] Diagnosis Malignant neoplasm of transverse colon Cancer of transverse colon Malignant neoplasm of transverse colon [facility] Diagnosis Malignant neoplasm of transverse colon- Primary [facility] Consultation (Routine) - New Request Specialty Diagnoses / Procedures Referred By Jaylene staton Referred To Contact Multispecialty Diagnoses Malignant neoplasm of transverse colon Bernardo Carlos APRN-CNP [address] [address] Referral ID Status Reason Start Date Expiration Date V isits Requested Visits Authorized [id number] New Request 08/10/2023 09/03/2024 1 1 [facility] Direct[facility] Latest Code Status on File Code Status Date Activated Date Inactivated Comments Full Code 01/29/2015 6:02 PM 01/31/2015 6:15 PM Code Status History Code Status Date Activated Date Inactivated Comments Full Code-Unverified 01/27/2015 11:24 PM 01/29/2015 6:02 PM Latest Code Status on File Code Status Date Activated Date Inactivated Comments Full Code 01/29/2015 6:02 PM 01/31/2015 6:15 PM Code Status History Code Status Date Activated Date Inactivated Comments Full Code-Unverified 01/27/2015 11:24 PM 01/29/2015 6:02 PM Documents on File Type Date Recorded Patient Registration Clerk Expl anation HealthCare Power of Scale Tester 07/02/2020 Advance Directives/Living Will 07/02/2020 Latest Code Status on File Code Status Date Activated Date Inactivated Comments Full Code 09/27/2023 2:43 PM Code Status History Code Status Date Activated Date Inactivated Comments Full Code 01/29/2015 6:02 PM 01/31/2015 6:15 PM Full Code-Unverified 01/27/2015 11:24 PM 01/29/2015 6:02 PM Documents on File Type Date Recorded Patient Registration Clerk Expl anation HealthCare Power of Scale Tester 07/02/2020 Advance Directives/Living Will 07/02/2020 Latest Code Status on File Code Status Date Activated Date Inactivated Comments Full Code 09/27/2023 2:43 PM Code Status History Code Status Date Activated Date Inactivated Comments Full Code 01/29/2015 6:02 PM 01/31/2015 6:15 PM Full Code-Unverified 01/27/2015 11:24 PM 01/29/2015 6:02 PM Reason for Referral Specialty Diagnoses / Procedures Referred By Contac t Referred To Contact Social Work Diagnoses Malignant neoplasm of transverse colon Arin Odell, ARCHITECTURAL DRAFTER-AGRONOMY PROFESSOR [address] [facility] [address] [place] [address] Referral ID Status Reason Start Date Expiration Date V isits Requested Visits Authorized [id number] New Request 09/29/2023 10/23/2024 1 1 Specialty Diagnoses / Procedures Referred By Contac t Referred To Contact Procedures PLATELET MONITORING PER PROTOCOL Leida Lui MD [address] [place] [address] Referral ID Status Reason Start Date Expiration Date V isits Requested Visits Authorized [id number] New Request 09/27/2023 10/21/2024 1 1 Specialty Diagnoses / Procedures Referred By Contac t Referred To Contact Procedures DVT/VTE RISK ASSESSMENT Leida Lui MD [address] [place] [address] Referral ID Status Reason Start Date Expiration Date V isits Requested Visits Authorized [id number] New Request 09/27/2023 10/21/2024 1 1 Summary Purpose Family History No Family History Records Found Additional Source Comments Reason for Visit (unrecogniz ed section and content) Reason Comments Pre-operative Consultation Specialty Diagnoses / Procedures Referred By Jaylene staton Referred To Contact PreOp Diagnoses Malignant neoplasm of transverse colon Leida Lui MD [address] [place] [address] Referral ID Status Reason Start Date Expiration Date V isits Requested Visits Authorized [id number] New Request 08/28/2023 09/21/2024 1 1 Specialty Diagnoses / Procedures Referred By Jaylene staton Referred To Contact Diagnoses Malignant neoplasm of transverse colon Malignant neoplasm of transverse colon [C18.4] Procedures [place] PART REMOVAL COLON W ANASTOMOSIS COLECTOMY PARTIAL OPEN RIGHT Leida Lui MD [address] [place] [address] [facility] [address] [place] [address] Referral ID Status Reason Start Date Expiration Date Visits Re quested Visits Authorized [id number] 1 1 Reason Comments Post Op Visit Post op visit, state s doing better but it has been bad. Care Teams (unrecognized sec tion and content) Inspector Plumbing Relationship Specialty Start Date End Date Luciano Huertas MD [address] [facility] [address] [place] [address] PCP - General 03/07/23 Otis Sher [facility] [address] [place] [address] Oncologist Medical Oncology 02/16/23 Kenya Hodges, RN Registered Nurse 02/16/23 Inspector Plumbing Relationship Specialty Start Date End Date Luciano Huertas MD [address] [facility] [address] [place], [place] [id number] PCP - General 03/07/23 Otis Sher [facility] [address] [place] [address] Oncologist Medical Oncology 02/16/23 Kenya Hodges, RN Registered Nurse 02/16/23 Inspector Plumbing Relationship Specialty Start Date End Date Luciano Huertas MD [address] [facility] [address] [place], [place] [id number] PCP - General 03/07/23 Otis Sher [facility] [address] [place], [place] [id number] Oncologist Medical Oncology 02/16/23 Kenya Hodges, RN Registered Nurse 02/16/23 Scheduled Active and Recently Administ ered Medications (unrecognized section and content) Continuous Medication Order 09/29/2023 09/30/2023 10/01/2023 Sodium chloride 0.9% IV solution (CANCELED) Intravenous, at 75 mL/hr, CONTINUOUS, Starting on Bethany 09/27/23 at 1715, Until 09/29/23 at 0835 0218 (Rate/Dose Verify - Provider: Lilliana Clemens RN)0410 (Stopped - Provider: Lilliana Clemens RN)0411 ($$New Bag$$ - Provider: Lilliana Clemens RN)0412 (Rate/Dose Verify - Provider: Mindy Quiroga, CLEO)0413 (Paused - Provider: Mindy Quiroga, RN)0416 (Restarted - Provider: Mindy Quiroga, RN)0814 (Rate/Dose Verify - Provider: Mindy Quiroga, RN) PRN Medication Order 09/29/2023 09/30/2023 10/01/2023 Melatonin tablet 6 mg 6 mg, Oral, DAILY AT BEDTIME NEEDED, Starting on Bethany 09/27/23 at 1443, Until Sun10/01/23 at 1806, Insomnia, Post-op/Post-Proc 2126 (Given - Provider: Lilliana Clemens RN) Nalbuphine (NUBAIN) injection 2.5 mg 2.5 mg, Intravenous, EVERY 4 HOURS NEEDED, Starting on Bethany 09/27/23 at 0855, Until Sun10/01/23 at 1806, Itching Ondansetron 4mg/2ml (ZOFRAN) injection 4 mg 4 mg, Intravenous, EVERY 6 HOURS NEEDED, Starting on 09/28/23 at 1238, Until Sun10/01/23 at 1806, Nausea / Vomiting, 2nd Line Nausea / Vomiting, Post-op/Post-Proc oxyCODONE (ROXICODONE) tablet 5 mg(Linked Group 2) 5 mg, Oral, EVERY 4 HOURS NEEDED, Starting on 09/29/23 at 1638, Until Sun10/01/23 at 1806, Moderate Pain, Severe Pain, Use as initial dose. Higher dose may be administered if lower dose was previously documented as ineffective and did not result in adverse effects (RR<10, decrease in level of consciousness)., Post-op/Post-Proc 0840 (Given - Provid er: Melissa Hummel RN) oxyCODONE HCl (ROXICODONE) tablet 10 mg(Linked Group 2) 10 mg, Oral, EVERY 4 HOURS NEEDED, Starting on 09/29/23 at 1638, Until Sun10/01/23 at 1806, Moderate Pain, Severe Pain, Higher dose may be administered if lower dose was previously documented as ineffective and did not result in adverse effects (RR<10, decrease in level of consciousness). Decrease back to lower dose if patient has adverse effects, or no PRN used in previous 12 hours., Post-op/Post-Proc 0840 (See Alternativ e - Provider: Melissa Hummel RN) Phenol (CHLORASEPTIC) 1.4 % oral spray 1 spray 1 spray, Mouth/Throat, NEEDED, Starting on Bethany 09/27/23 at 1443, Until Sun10/01/23 at 1806, Sore Throat, Patient may self-administer., Post-op/Post-Proc Prochlorperazine (COMPAZINE) injection 10 mg(Linked Group 3) 10 mg, Intravenous, EVERY 6 HOURS NEEDED, Starting on Bethany 09/27/23 at 1443, Until Sun10/01/23 at 1806, Nausea / Vomiting, moderate nausea and vomiting, 1st line (if NOT tolerating PO), For IV route: dilute dose with 10mL normal saline and give by slow IV push at a rate of 5mg/min. Maximum of 40mg/day., Post-op/Post-Proc Prochlorperazine (COMPAZINE) tablet 10 mg(Linked Group 3) 10 mg, Oral, EVERY 6 HOURS NEEDED, Starting on Bethany 09/27/23 at 1443, Until Sun10/01/23 at 1806, Nausea / Vomiting, Refractory Nausea Vomiting, 1st line (if tolerating PO), Post-op/Post-Proc Linked Groups Order Group 1: famotidine (PF) (PEPCID) injection 20 mgJump to med 20 mg, Intravenous, 2 TIMES DAILY, First dose on Sun09/27/23 at 1700, Until Discontinued
Convert to oral dose form when tolerating oral diet. Administer undiluted by slow IV push at a rate not to exceed 10mg/min.
Post-op/Post-Proc Or faMOTIdine (PEPCID) tablet 20 mgJump to med 20 mg, Oral, 2 TIMES DAILY, First dose on Bethany 09/27/23 at 1700, Until Discontinued, Post-op/Post-Proc Group 2: oxyCODONE (ROXICODONE) tablet 5 mgJump to med 5 mg, Oral, EVERY 4 HOURS NEEDED, Starting on 09/29/23 at 1638, Until Sun10/01/23 at 1806, Moderate Pain, Severe Pain
Use as initial dose. Higher dose may be administered if lower dose was previously documented as ineffective and did not result in adverse effects (RR<10, decrease in level of consciousness).
Post-op/Post-Proc Or oxyCODONE HCl (ROXICODONE) tablet 10 mgJump to med 10 mg, Oral, EVERY 4 HOURS NEEDED, Starting on 09/29/23 at 1638, Until Sun10/01/23 at 1806, Moderate Pain, Severe Pain
Higher dose may be administered if lower dose was previously documented as ineffective and did not result in adverse effects (RR<10, decrease in level of consciousness). Decrease back to lower dose if patient has adverse effects, or no PRN used in previous 12 hours.
Post-op/Post-Proc Group 3: Prochlorperazine (COMPAZINE) injection 10 mgJump to med 10 mg, Intravenous, EVERY 6 HOURS NEEDED, Starting on Bethany 09/27/23 at 1443, Until Sun10/01/23 at 1806, Nausea / Vomiting, moderate nausea and vomiting, 1st line (if NOT tolerating PO)
For IV route: dilute dose with 10mL normal saline and give by slow IV push at a rate of 5mg/min. Maximum of 40mg/day.
Post-op/Post-Proc Or Prochlorperazine (COMPAZINE) tablet 10 mgJump to med 10 mg, Oral, EVERY 6 HOURS NEEDED, Starting on Bethany 09/27/23 at 1443, Until Sun10/01/23 at 1806, Nausea / Vomiting, Refractory Nausea Vomiting, 1st line (if tolerating PO), Post-op/Post-Proc (unrecognized sect ion and content) No Status Records Found INFORMATION SOURCE (unrecogn ized section and content) FOR RECORDS PERTAINING TO PATIENTS WHO ARE OR HAVE BEEN ENROLLED IN A CHEMICAL DEPENDENCY/SUBSTANCEABUSE PROGRAM, SOME INFORMATION MAY BE OMITTED. This clinical summary was aggregated from multiple sources. Caution should be exercised in using it in the provision of clinical care. This summary normalizes information from multiple sources, and as a consequence, information in this document may materially change the coding, format and clinical context of patient data. In addition, data may be omitted in some cases. CLINICAL DECISIONS SHOULD BE BASED ON THE PRIMARY CLINICAL RECORDS. [facility] provides no warranty or guarantee of the accuracy or completeness of information in this document.
--- NOTE | 2024-01-04 13:49 | CT_ITS ---
STUDY: CT CHEST, ABDOMEN T PELVIS WITH CONTRAST REASON FOR EXAM: Male, 83 years old. RESTAGING COLON CANCER ORAL AND IV CONTRAST. History of prior partial colectomy in September 2023. RADIATION DOSAGE (If Supplied By Facility): CTDIvol = ( 7.5 ) mGy, DLP = ( 1775.33 ) mGycm TECHNIQUE: Transaxial imaging was performed following intravenous administration of Oral and amp; IV Readi-CAT and amp; 100mL Isovue-370. Multiplanar coronal and sagittal images were reformatted. Individualized dose optimization techniques were used for this CT. COMPARISON: Comparison is made with prior study dated July 09, 2023. FINDINGS: CHEST A right-sided portacatheter is seen with the tip in the superior vena cava. Stable mild centrilobular and paraseptal emphysematous changes. There is no demonstrated pleural abnormality. There are calcifications of the coronary arteries. Tiny pericardial thickening. Normal mediastinum. Normal hilar regions. Normal unenhanced pulmonary arteries. Normal aorta arch and descending thoracic aorta. There are multi-level degenerative changes of the thoracic spine. Stable 1 cm hypodensity in the dome of the right lobe of liver. ABDOMEN Stable 1 cm well-defined hypodensity in the dome of the right lobe of the liver. Normal gallbladder and extrahepatic biliary system. Normal spleen. Normal pancreas. Normal bilateral adrenal glands. 2 mm nonobstructive calculus in the midpole calyx of the right kidney. 2 mm nonobstructive calculus in the upper pole calyx of the left kidney. 4 mm nonobstructive calculus in the midpole calyx of the left kidney. The previously seen soft tissue mass in the mid mesentery as increased in size. It presently measures 8.5 cm x 7.9 cm x 10.8 cm. Increased markings are seen in the surrounding peritoneal fat. This may represent either progression of a neoplastic process versus possible abscess. This lies posterior to the mid transverse colon at the site of the anastomosis. Normal visualized stomach. Normal small intestine. Surgical anastomosis seen in the midportion of the transverse colon. The appendix is visualized and appears normal. There is diffuse atherosclerotic calcification of the abdominal aorta and its major visceral branches., without a demonstrated aneurysm. Normal inferior vena cava. Normal retroperitoneum. PELVIS Normal urinary bladder. Normal visualized small intestine. Normal visualized colon. There is no pelvic fluid. There is no pelvic lymphadenopathy or mass lesion. Normal visualized pelvic arteries. There is a right inguinal hernia containing fat. There are diffuse degenerative changes of the visualized lumbar spine. CT/CT Chest, Abd, Pel w/Contrast IMPRESSION: Interval increase in size of the previously seen intra-abdominal mass abutting the posterior aspect of the transverse colon at the surgical site. It presently measures 8.5 cm x 7.9 cm x 10.8 cm. This may represent either progressive neoplastic process versus possible abscess. The remainder of the examination is unchanged. Stable small nonobstructing bilateral intrarenal Electronically Signed: Willem Valles MD at 14:39 EST ,
[2024-01-04] MEDS: 0.9% Saline Lock 10 ML Syringe IV (14:22)
== END | disposition home or self-care (01) ==
PROVIDERS: PCP Family Medicine; Referring Provider Internal Medicine Hematology & Oncology; Visit Provider Internal Medicine Hematology & Oncology
DX: C18.4 Malignant neoplasm of transverse colon (principal); I49.9 Cardiac arrhythmia, unspecified
CPT/HCPCS: 71260; 74177; 93005; Q9967; A4216

== ENCOUNTER 2024-02-09 14:52 | Emergency (ER) | payer MEDICARE, OTHER, SELFPAY ==
[2024-02-09 14:53] VITALS: BP 123/83; PULSE 111; RESP 16; TEMP 36.6; O2SAT 99; BMI 26.2
[2024-02-09 14:55] VITALS: BP 123/83; PULSE 111; RESP 18; TEMP 36.6; O2SAT 100
--- NOTE | 2024-02-09 15:14 | EX.ED.DYSGE1 ---
HPI <RORO Doran - Last Filed: 02/09/24 19:09> History of Present Illness Chief Complaint: Nausea/Vomiting/Diarrhea Narrative Narrative: 83-year-old male has colon cancer. He states he completed 16 weeks of chemotherapy last year and then had partial colon tumor resection and restarted chemotherapy 1 month ago. Chemo is supposed to be every 2 weeks but he had low white blood cells so treatment was delayed. He received chemo on February 04 and then a shot to increase white blood cells on February 06. Last night he developed diarrhea with about 3 episodes yesterday and 3 today and this morning developed vomiting x 2. He states throughout his cancer treatment he has had nausea and poor appetite and chronic abdominal pain. No history of obstruction. His oncologist is Dr. Badillo. [facility] <RORO Doran - Last Filed: 02/09/24 19:09> [facility] Medical History Abdominal pain Abdominal wall bulge Acid reflux Alcohol use Arrhythmia Atrial fibrillation, new onset Cancer Cancer of transverse colon Constipation Encounter for chemotherapy management Encounter for education Essential hypertension Hepatitis History of echocardiogram History of irregular heartbeat History of kidney stones History of stress test Hoarseness Hypertension Iron deficiency anemia Irregular heart rhythm Leg cramps Low iron Mild aortic stenosis Nephrolithiasis Neuropathy Non-smoker Pseudogout Ventral hernia Wears glasses Wears partial dentures Home Medications lisinopril 5 mg tablet 5 mg PO DAILY 11/03/21 [History Last Taken 03/15/23] Fluad Quad [id number](65yr up)(PF) 60 mcg (15 mcg x 4)/0.5mL IM syringe (flu vac 2022 [id number](PF)) 60 mcg IM ONCE #0.5 mL 08/23/23 [Clinic Last Taken Unknown] ascorbate calcium (vitamin C) 500 mg tablet 500 mg PO DAILY 10/25/23 [History Last Taken Unknown] apixaban 5 mg tablet (Eliquis) 5 mg PO BID #180 tabs 01/10/24 [Rx Last Taken Unknown] metoprolol tartrate 50 mg tablet 50 mg PO BID #180 tabs 01/10/24 [Rx Last Taken Unknown] promethazine 25 mg rectal suppository 25 mg LA Q6H PRN nausea and vomiting 3 days #12 ea 02/09/24 [Rx Last Taken Unknown] promethazine 25 mg tablet 25 mg PO Q6H PRN nausea and vomiting 3 days #12 tabs 02/09/24 [Rx Last Taken Unknown] Allergy/AdvReac Type Severity Reaction Status Date / Time No Known Allergies Allergy Verified 02/09/24 14:56 Family History Father Heart disease Colon cancer CVA (cerebral vascular accident) CAD (coronary artery disease) Mother ALS (amyotrophic lateral sclerosis) Surgical History h/o reverse total shoulder History of bilateral carpal tunnel release History of colonoscopy (06/25/20) History of colonoscopy (~04/2021) History of lithotripsy History of tonsillectomy history ORIF left ankle Hx of arthroscopy of shoulder Hx of colectomy (07/14/20) Social History Smoking Status: Never smoker second hand exposure: No alcohol intake: current details: beer 4 times a week substance use type: does not use caffeine: Yes what type of physical activity do you participate in: none frequency: does not exercise shahnaz/mormon: Anglican seatbelt use: always do you feel safe at home: Yes ROS <RORO Doran - Last Filed: 02/09/24 19:09> ROS ED ROS Narrative Constitutional: Negative for fever, chills, malaise. CVS: Negative for chest pain. Respiratory: Negative for shortness of breath. GI: Positive for abdominal pain, nausea, vomiting, diarrhea. : Negative for dysuria, hematuria or frequency. EXAM <RORO Doran - Last Filed: 02/09/24 19:09> Physical Exam Narrative Exam Narrative: CONST: Patient sitting in no acute distress. EYES: Normal inspection. NECK: Normal inspection. RESP: No respiratory distress, CTAB. CVS: Regular rate and rhythm, no murmur, no gallop. ABD: Soft with generalized tenderness, no guarding or rebound, nondistended, normal bowel sounds x 4 SKIN: Color normal, no rash, warm, dry, intact. EXTREMITIES: Normal appearance, no pedal edema. NEURO: Oriented x4. PSYCH: Normal affect. Const Vital Signs: 03/23/24 14:53 02/09/24 14:55 02/09/24 16:51 Temperature 97.9 F 97.9 F Temperature Source Oral Oral Pulse Rate 111 H 111 H 97 Respiratory Rate 16 18 17 Blood Pressure 123/83 H 123/83 H 114/76 Blood Pressure Mean 96 96 88 Pulse Ox 99 100 100 Oxygen Delivery Method Room Air Room Air Room Air <Dr. Steffany Nunez DO - Last Filed: 02/15/24 08:26> Physical Exam Const Vital Signs: 02/09/24 14:53 02/09/24 14:55 02/09/24 16:51 Temperature 97.9 F 97.9 F Temperature Source Oral Oral Pulse Rate 111 H 111 H 97 Respiratory Rate 16 18 17 Blood Pressure 123/83 H 123/83 H 114/76 Blood Pressure Mean 96 96 88 Pulse Ox 99 100 100 Oxygen Delivery Method Room Air Room Air Room Air [facility] <RORO Doran - Last Filed: 02/09/24 19:09> [facility] Narrative Medical decision making narrative: Differential: Chemotherapy side effects, dehydration, KRIS, obstruction Consults: Oncology Patient has terminal colon cancer and is on chemotherapy. Presents with nausea and vomiting diarrhea over the last 24 hours. He has chronic abdominal pain. He appears well and nontoxic. HR is 111 with otherwise normal vital signs. He does have slightly dry mucous membranes. Heart is rapid but regular. Lungs clear. Abdomen soft with diffuse tenderness; nondistended with normal bowel sounds. Labs show white count of 21.6 which is likely from his WBC stimulating shot he had a few days ago. Hemoglobin is 8.6. This is a slight drop from a couple days ago at 9.3 so rectal exam was done and is Hemoccult positive. he states he has had intermittent positive Hemoccults in the past from his tumor. He has normal electrolytes, BUN 20, creatinine 0.92. Total bilirubin is slightly up at 2.5 but he has normal LFTs and lipase. CT scan shows a persistent intra-abdominal fluid collection which could be postoperative fluid collection/abscess or chronic anastomotic leak or neoplasm but it is unchanged since 01/04/2024. After IV fluids and Zofran patient is feeling improved, tachycardia has resolved, and he is tolerating p.o. intake. I discussed the findings with his oncologist, Dr. Sher, who is aware of the CT findings and states they are chronic and no intervention is needed. He agreed the leukocytosis is expected after his recent treatment. Patient is also above the hemoglobin threshold for needing a blood transfusion. He was comfortable with the plan of antiemetics for home and follow-up as scheduled. Patient tolerated p.o. intake here and was prescribed p.o. and suppository Phenergan as needed. Lab Data Attestation: I reviewed the patient's lab results. Labs: Laboratory Results - last 24 hr 02/09/24 15:02 WBC 20.6 H RBC 3.11 L Hgb 8.6 L Hct 27.7 L MCV 89.1 MCH 27.7 MCHC 31.0 L RDW Std Deviation 60.2 H RDW Coeff of Carolyn 18.5 H Plt Count 287 MPV 9.2 Immature Gran % (Auto) 3.800 H Neut % (Auto) 94.0 H Lymph % (Auto) 1.5 L Swain % (Auto) 0.4 Eos % (Auto) 0.1 Baso % (Auto) 0.2 Absolute Neuts (auto) 19.3 H Absolute Lymphs (auto) 0.31 L Nucleated RBC % 0 Sodium 137 Potassium 4.4 Chloride 107 Carbon Dioxide 25.0 Anion Gap 5 BUN 20 H Creatinine 0.92 Estim Creat Clear Calc 73.22 Est GFR (MDRD) Af Amer 101 Est GFR (MDRD) Non-Af 84 BUN/Creatinine Ratio 21.7 H Glucose 139 H Calcium 8.7 Total Bilirubin 2.50 H AST 18 ALT 20 Alkaline Phosphatase 124 H Total Protein 6.2 L Albumin 2.9 L Globulin 3.3 Albumin/Globulin Ratio 0.9 Lipase 24 Radiography Diagnostic Testing: Clinical Impression(s) from Imaging Studies Abdomen/Pelvis CT 02/09/24 15:23 IMPRESSION: 1. Since 01/04/2024, no significant change. 2. Persistent fluid collection in the central abdomen with possible continuity with surgical anastomosis (partial colectomy). Small locules of air centrally. Differential considerations favor a chronic postoperative fluid collection/abscess, a chronic anastomotic contained leak or neoplasm. The contain air could be related to infection, anastomotic leak or intervening intervention. Electronically Signed: Omar Calhoun MD ([place]) at 17:20 EDT , <Dr. Steffany Nunez, DO - Last Filed: 02/15/24 08:26> [facility] Narrative Medical decision making narrative: Differential: Chemotherapy side effects, dehydration, KRIS, obstruction Consults: Oncology Patient has terminal colon cancer and is on chemotherapy. Presents with nausea and vomiting diarrhea over the last 24 hours. He has chronic abdominal pain. He appears well and nontoxic. HR is 111 with otherwise normal vital signs. He does have slightly dry mucous membranes. Heart is rapid but regular. Lungs clear. Abdomen soft with diffuse tenderness; nondistended with normal bowel sounds. Labs show white count of 21.6 which is likely from his WBC stimulating shot he had a few days ago. Hemoglobin is 8.6. This is a slight drop from a couple days ago at 9.3 so rectal exam was done and is Hemoccult positive. he states he has had intermittent positive Hemoccults in the past from his tumor. He has normal electrolytes, BUN 20, creatinine 0.92. Total bilirubin is slightly up at 2.5 but he has normal LFTs and lipase. CT scan shows a persistent intra-abdominal fluid collection which could be postoperative fluid collection/abscess or chronic anastomotic leak or neoplasm but it is unchanged since 01/04/2024. After IV fluids and Zofran patient is feeling improved, tachycardia has resolved, and he is tolerating p.o. intake. I discussed the findings with his oncologist, Dr. Sher, who is aware of the CT findings and states they are chronic and no intervention is needed. He agreed the leukocytosis is expected after his recent treatment. Patient is also above the hemoglobin threshold for needing a blood transfusion. He was comfortable with the plan of antiemetics for home and follow-up as scheduled. Patient tolerated p.o. intake here and was prescribed p.o. and suppository Phenergan as needed. I have personally performed a face to face assessment of the patient and have reviewed the HERIBERTO Note. I performed a substantive portion of the visit including all aspects of the following. My pierson findings include: History is Patient is a very pleasant 83-year-old male with history of terminal colon cancer currently undergoing chemotherapy. He follows with Dr. Badillo. He is having nausea and vomiting despite having home Zofran. Came in for further evaluation IV fluids and to make sure there is no surgical cause of his symptoms. On my evaluation patient has received IV Zofran and fluids and states he is feeling better. Abdomen is soft no focal tenderness. No peritoneal signs. He does not have any acute electrolyte abnormalities. CT does show abnormalities including a persistent intra-abdominal fluid collection however this is unchanged over the past month. This is reviewed with the patient's oncologist who is comfortable with the patient being discharged home with further nausea medication. Will be given prescription for oral and suppository Phenergan. Patient is able to take p.o. challenge emergency room. He is agreeable this plan of care. Discharged home in stable and improved condition. Is given return precautions. Patient's lab work is remarkable for leukocytosis as well as anemia however the anemia is chronic and the leukocytosis is likely reactive given that he received what sounds like Neupogen earlier in the week. His oncologist is aware. Other additions or changes: [None] Lab Data Labs: Laboratory Results - last 24 hr 02/09/24 15:02 WBC 20.6 H RBC 3.11 L Hgb 8.6 L Hct 27.7 L MCV 89.1 MCH 27.7 MCHC 31.0 L RDW Std Deviation 60.2 H RDW Coeff of Carolyn 18.5 H Plt Count 287 MPV 9.2 Immature Gran % (Auto) 3.800 H Neut % (Auto) 94.0 H Lymph % (Auto) 1.5 L Swain % (Auto) 0.4 Eos % (Auto) 0.1 Baso % (Auto) 0.2 Absolute Neuts (auto) 19.3 H Absolute Lymphs (auto) 0.31 L Nucleated RBC % 0 Sodium 137 Potassium 4.4 Chloride 107 Carbon Dioxide 25.0 Anion Gap 5 BUN 20 H Creatinine 0.92 Estim Creat Clear Calc 73.22 Est GFR (MDRD) Af Amer 101 Est GFR (MDRD) Non-Af 84 BUN/Creatinine Ratio 21.7 H Glucose 139 H Calcium 8.7 Total Bilirubin 2.50 H AST 18 ALT 20 Alkaline Phosphatase 124 H Total Protein 6.2 L Albumin 2.9 L Globulin 3.3 Albumin/Globulin Ratio 0.9 Lipase 24 Radiography Diagnostic Testing: Clinical Impression(s) from Imaging Studies Abdomen/Pelvis CT 02/09/24 15:23 IMPRESSION: 1. Since 01/04/2024, no significant change. 2. Persistent fluid collection in the central abdomen with possible continuity with surgical anastomosis (partial colectomy). Small locules of air centrally. Differential considerations favor a chronic postoperative fluid collection/abscess, a chronic anastomotic contained leak or neoplasm. The contain air could be related to infection, anastomotic leak or intervening intervention. Electronically Signed: Omar Calhoun MD ([place]) at 17:20 EDT Reading Location ID and State: [facility] / [place] , Service support , Discharge Plan Triage Chief Complaint: Nausea/Vomiting/Diarrhea ED Midlevel Provider: Michelle Contreras ED Provider: Steffany Nunez Dx/Rx/DC Orders Clinical Impression: Nausea and vomiting, Chronic anemia, GI bleed, Colon cancer, Dehydration Instructions: Cancer Tx Control Nausea Vomiting Prescriptions: New promethazine 25 mg tablet 25 mg PO Q6H PRN (Reason: nausea and vomiting) 3 Days Qty: 12 0RF promethazine 25 mg suppository 25 mg LA Q6H PRN (Reason: nausea and vomiting) 3 Days Qty: 12 0RF No Action lisinopril 5 mg tablet 5 mg PO DAILY Fluad Quad (65y up)(PF) 60 mcg (15 mcg x 4)/0.5 mL syringe 60 mcg IM ONCE Qty: 0.5 0RF ascorbate calcium (vitamin C) 500 mg tablet 500 mg PO DAILY metoprolol tartrate 50 mg tablet 50 mg PO BID Qty: 180 3RF Eliquis 5 mg tablet 5 mg PO BID Qty: 180 3RF Primary Care Provider: Luciano Jaimes Referrals: Luciano Jaimes MD [Primary Care Provider] - Activity Restrictions/Additional Instructions: Use the nausea medication as needed, follow-up with your oncologist. Disposition Disposition: Home, Self Care Discharge Date/Time: 02/09/24 19:32
[2024-02-09] MEDS: Ondansetron 4 MG/2 ML Vial IV (15:22)
[2024-02-09] MEDS: 0.9% Normal Saline (1000mL) 1,000 ML 999 ML IV (15:22)
--- NOTE | 2024-02-09 15:23 | CT_ITS ---
STUDY: CT ABDOMEN AND PELVIS WITH CONTRAST REASON FOR EXAM: Male, 83 years old. abdominal pain, nausea, vomiting, chemotherapy 4 days ago, diarrhea for one day, colon cancer RADIATION DOSAGE (If Supplied By Facility): CTDIvol = ( 20.06 ) mGy, DLP = ( 1095.07 ) mGycm TECHNIQUE: Transaxial images were obtained from the dome of the diaphragm to the symphysis pubis without oral contrast. IV 100mL Isovue-370 was administered. Sagittal and coronal images were reconstructed. Individualized dose optimization techniques were used for this CT. COMPARISON: 01/04/2024. FINDINGS: There are scattered small pulmonary calcifications consistent with old granulomatous disease. The visualized portions of the heart are within normal limits. Normal liver. Normal gallbladder and extrahepatic biliary system. Normal spleen. Normal pancreas. Normal bilateral adrenal glands. No hydronephrosis. Stable nonobstructing calculus of the right kidney. A left renal cyst. Normal visualized stomach. No dilated small bowel. Partial colectomy. Relatively thick-walled cystic lesion in the central mesentery on image image 58 series 2 measures 7.8 x 8.3 cm (previous measurement 7.9 x 8.5 cm with newly developed small locules of air in the central portion of the collection. There is fluid density along the posterior surgical anastomosis on image 50 of series 2 which extends posterior and inferior towards the right anterolateral wall of the collection on image 53. The remaining colon is unremarkable. No small or large bowel wall thickening. There is diffuse atherosclerotic calcification of the abdominal aorta, without a demonstrated aneurysm. Normal inferior vena cava. Normal retroperitoneum. Normal urinary bladder. Fat-containing right inguinal hernia. No destructive bony process. CT/Abdomen/Pelvis W IV Cont ONLY IMPRESSION: 1. Since 01/04/2024, no significant change. 2. Persistent fluid collection in the central abdomen with possible continuity with surgical anastomosis (partial colectomy). Small locules of air centrally. Differential considerations favor a chronic postoperative fluid collection/abscess, a chronic anastomotic contained leak or neoplasm. The contain air could be related to infection, anastomotic leak or intervening intervention. Electronically Signed: Omar Calhoun MD ([place]) at 17:20 EDT Reading Location ID and State: [facility] / [place] , Service support ,
[2024-02-09 15:37] LABS: Absolute Lymphocyte Count 0.31 X10^3/uL (0.83-4.51); Absolute Neutrophil Count 19.3 X10^3/uL (2.0-7.7); Basophil# 0.05 X10^3/uL; Basophil% 0.2 % (0-1); Eosinophil# 0.03 X10^3/uL; Eosinophils% 0.1 % (0-5); Hematocrit 27.7 % (40-54); Hemoglobin 8.6 g/dL (13.0-16.5); Lymphocyte # 0.31 X10^3/ul (0.83-4.51); Lymphocyte % 1.5 % (19-41); Mean Corpuscular Hgb 27.7 pg (27.0-32.0); Mean Corpuscular Volume 89.1 fL (80-94); Mean Platelet Vol. 9.2 fl (6.2-12.0); Monocyte# 0.08 X10^3/uL; Monocyte% 0.4 % (0-10); NRBC Flagged by Analyzer 0 % (0-5); Neutrophil # 19.31 X10^3/uL (2.7-7.7); POSITIVE DIFFERENTIAL YES; Platelet Count 287 K/mm3 (150-450); RBC Distribution Width CV 18.5 % (11.6-14.6); RBC Distribution Width SD 60.2 fl (35.1-43.9); Red Blood Count 3.11 M/mm3 (4.6-6.2); White Blood Count 20.6 K/mm3 (4.4-11.0)
[2024-02-09 15:55] LABS: ALB/GLOB Ratio 0.9 RATIO (0.9-2.4); AST(SGOT) 18 U/L (15-37); Alanine Aminotransfer ALT/SGPT 20 U/L (16-61); Albumin, Serum 2.9 g/dL (3.2-5.0); Alkaline Phosphatase 124 U/L (45-117); Anion Gap 5 (5-15); BUN 20 mg/dL (7-18); BUN/Creat Ratio 21.7 RATIO (10-20); Calcium,Total 8.7 mg/dL (8.5-10.1); Chloride 107 mmol/L (98-107); Creatinine, Serum 0.92 mg/dL (0.70-1.30); EST Glomerular Filtration Rate 84 mL/min (>60); Est Glom Filt Rate - Afr Amer 101 mL/min (>60); Estimated Creatinine Clearance 73.22 ml/min; Globulin 3.3 g/dL (2.2-4.2); Glucose 139 mg/dL (74-106); Lipase 24 U/L (13-75); Potassium 4.4 mmol/L (3.5-5.1); Protein, Total 6.2 g/dL (6.4-8.2); Sodium Level 137 mmol/L (136-145)
[2024-02-09 16:51] VITALS: BP 114/76; PULSE 97; RESP 17; O2SAT 100
[2024-02-09 19:30] VITALS: BP 118/65; PULSE 95; RESP 20; TEMP 36.6; O2SAT 97
== END 2024-02-09 19:32 | disposition home or self-care (01) ==
PROVIDERS: Physician Assistant; Emergency Provider Emergency Medicine; PCP Family Medicine; Visit Provider Emergency Medicine
DX: R11.2 Nausea with vomiting, unspecified (principal); C18.9 Malignant neoplasm of colon, unspecified; E86.0 Dehydration; D64.9 Anemia, unspecified
CPT/HCPCS: 36591; 74177; 80053; 82274; 83690; 85025; 96361; 96374; 99284; J7030; Q9967; A4216; J2405

== ENCOUNTER → 2024-02-13 | Outpatient (CLI) | payer MEDICARE, OTHER, SELFPAY ==
--- NOTE | 2024-02-13 13:02 | ECHOD_ITS ---
Reason For Study: ATRIAL FIBRILLATION Procedure This was a 2D Doppler, Color Flow transthoracic echocardiogram. Exam performed in department. Left Ventricle Normal LV size. Moderate concentric left ventricular hypertrophy. Left ventricular systolic function is normal. The estimated ejection fraction is 70 %. No regional wall motion abnormalities noted. Right Ventricle Normal RV size. Normal systolic function. Atria The left atrium is moderately enlarged. Normal right atrium. Mitral Valve There is mild mitral annular calcification. Mild (1+) eccentric mitral valve insufficiency. Tricuspid Valve Normal tricuspid valve. Mild (1+) tricuspid valve insufficiency. Pulmonary artery systolic pressure is 30 mmHg. Aortic Valve Trisinus/trileaflet aortic valve. Mild focal aortic valve calcification. Pulmonic Valve Normal pulmonic valve. Trivial pulmonic valve insufficiency. Great Vessels Normal aortic root. The pulmonary artery is normal size. Inferior vena cava collapse with respiration. Pericardium/Pleural No pericardial effusion. MMode/2D Measurements & Calculations LVIDd: 4.5 cm IVSd: 1.5 cm LVOT diam: 2.0 cm LVIDs: 3.3 cm LVPWd: 1.5 cm LVOT area: 3.0 cm2 RVDd: 3.6 cm FS: 26.3 % Ao root diam: 3.8 cm LAV(MOD-bp): 117.9 ml LVAd ap4: 24.0 cm2 LAV(MOD-bp) Indexed: 52.1 ml/m2 LVLd ap4: 8.6 cm LAV(MOD-sp2): 113.2 ml EDV(MOD-sp4): 58.7 ml LAV(MOD-sp4): 110.6 ml EDV(sp4-el): 57.0 ml LVAs ap4: 12.1 cm2 LVLs ap4: 7.0 cm ESV(MOD-sp4): 20.7 ml ESV(sp4-el): 17.9 ml EF(MOD-sp4): 64.8 % EF(sp4-el): 68.6 % SV(MOD-sp4): 38.1 ml SV(sp4-el): 39.1 ml LA A4 area: 31.0 cm2 LA dimension(2D): 5.7 cm RA A4 area: 19.8 cm2 TAPSE: 1.4 cm Time Measurements MV dec time: 0.20 sec Doppler Measurements & Calculations MV E max pantera: 86.3 cm/sec Lat Peak E' Pantera: 11.8 cm/sec Med Peak E' Pantera: 7.3 cm/sec MV A max pantera: 32.0 cm/sec E/E' lat: 7.3 E/E' med: 11.8 MV E/A: 2.7 MV P1/2t max pantera: 133.9 cm/sec Ao V2 max: 249.4 cm/sec LV V1 max: 107.0 cm/sec MV P1/2t: 56.3 msec Ao max P.0 mmHg LV V1 max P.6 mmHg Ao V2 mean: 190.4 cm/sec LV V1 mean P.3 mmHg MV dec slope: 697.2 cm/sec2 Ao mean P.7 mmHg LV V1 mean: 87.9 cm/sec MVA(P1/2t): 3.9 cm2 Ao V2 VTI: 43.7 cm LV V1 VTI: 20.4 cm AV (velocity ratio): 0.47 AIMEE(I,D): 1.4 cm2 AIMEE(V,D): 1.3 cm2 MR max pantera: 304.2 cm/sec SV(LVOT): 61.9 ml PA V2 max: 103.2 cm/sec MR max P.7 mmHg PA V2 mean: 68.8 cm/sec MR mean pantera: 213.3 cm/sec PA V2 VTI: 14.9 cm MR mean P.9 mmHg MR VTI: 66.8 cm TR max pantera: 263.6 cm/sec TR max P.8 mmHg ECHO/Echo Complete Interpretation Summary Normal LV size. Left ventricular systolic function is normal. Moderate concentric left ventricular hypertrophy. The estimated ejection fraction is 70 %. Mild (1+) eccentric mitral valve insufficiency. Ordering Physician: Patti Herring Referring Physician: Luciano Jaimes Performed By: Brittny Mitchell, NOHEMI, RVT
== END | disposition home or self-care (01) ==
LOC: CVS 12:59
PROVIDERS: PCP Family Medicine; Referring Provider Physician Assistant Medical; Visit Provider Physician Assistant Medical
DX: Z98.890 Other specified postprocedural states (principal); I48.91 Unspecified atrial fibrillation
CPT/HCPCS: 93306

== ENCOUNTER 2024-02-15 14:18 | Emergency (ER) | payer MEDICARE, OTHER, SELFPAY ==
[2024-02-15] VITALS (15 sets, daily range): BP systolic 95–124; BP diastolic 53–87; PULSE 94–113; RESP 12–21; TEMP 36.3–37.1; O2SAT 91–100; BMI 25.8
--- NOTE | 2024-02-15 14:59 | EX.ED.DYSGE1 ---
HPI <NATIVIDAD Kaur - Last Filed: 02/15/24 18:38> History of Present Illness Chief Complaint: General Illness Narrative Narrative: Patient is an 83-year-old male with history of atrial fibrillation on Eliquis, hypertension, currently undergoing chemotherapy for end-stage colon cancer. Patient has been battling colon cancer on and off for 3 years. Patient has had 2 surgeries, patient's last chemotherapy was 1.5 weeks ago. Patient states that he is now done. He does not want to perform any more chemotherapy or life-saving measures. Patient states he feels generalized malaise, weak, he also feels that he is having dehydration. Patient does see Dr. Ruelas, he has not told the oncologist that he is finished with treatment at this time. Patient would like treatment for his symptoms. Denies any fever chills blood in stool or vomit. PFSH <NATIVIDAD Kaur - Last Filed: 02/15/24 18:38> [facility] Medical History Abdominal pain Abdominal wall bulge Acid reflux Alcohol use Arrhythmia Atrial fibrillation, new onset Cancer Cancer of transverse colon Constipation Encounter for chemotherapy management Encounter for education Essential hypertension Hepatitis History of echocardiogram History of irregular heartbeat History of kidney stones History of stress test Hoarseness Hypertension Iron deficiency anemia Irregular heart rhythm Leg cramps Low iron Mild aortic stenosis Nephrolithiasis Neuropathy Non-smoker Pseudogout Ventral hernia Wears glasses Wears partial dentures Home Medications lisinopril 5 mg tablet 5 mg PO DAILY 11/03/21 [History Last Taken 03/15/23] Fluad Quad [id number](65yr up)(PF) 60 mcg (15 mcg x 4)/0.5mL IM syringe (flu vac 2022 [id number](PF)) 60 mcg IM ONCE #0.5 mL 08/23/23 [Clinic Last Taken Unknown] ascorbate calcium (vitamin C) 500 mg tablet 500 mg PO DAILY 10/25/23 [History Last Taken Unknown] apixaban 5 mg tablet (Eliquis) 5 mg PO BID #180 tabs 01/10/24 [Rx Last Taken Unknown] metoprolol tartrate 50 mg tablet 50 mg PO BID #180 tabs 01/10/24 [Rx Last Taken Unknown] promethazine 25 mg rectal suppository 25 mg IL Q6H PRN nausea and vomiting 3 days #12 ea 02/09/24 [Rx Last Taken Unknown] promethazine 25 mg tablet 25 mg PO Q6H PRN nausea and vomiting 3 days #12 tabs 02/09/24 [Rx Last Taken Unknown] Allergy/AdvReac Type Severity Reaction Status Date / Time No Known Allergies Allergy Verified 02/09/24 14:56 Family History Father Heart disease Colon cancer CVA (cerebral vascular accident) CAD (coronary artery disease) Mother ALS (amyotrophic lateral sclerosis) Surgical History h/o reverse total shoulder History of bilateral carpal tunnel release History of colonoscopy (06/25/20) History of colonoscopy (~04/2021) History of lithotripsy History of tonsillectomy history ORIF left ankle Hx of arthroscopy of shoulder Hx of colectomy (07/14/20) Social History Smoking Status: Never smoker second hand exposure: No alcohol intake: current details: beer 4 times a week substance use type: does not use caffeine: Yes what type of physical activity do you participate in: none frequency: does not exercise shahnaz/tenriism: Orthodox seatbelt use: always do you feel safe at home: Yes ROS <NATIVIDAD Kaur - Last Filed: 02/15/24 18:38> ROS ED ROS Narrative Constitutional: Negative for fever, chills, weight loss. Positive for weakness Eyes: Negative for vision loss, vision change, double vision ENT: Negative for any sore throat, ear pain, congestion Cardiovascular: Negative for any chest pain, tightness, palpitations Respiratory: Negative for any cough, sputum production, hemoptysis, dyspnea, dyspnea on exertion, orthopnea Gastrointestinal: Negative for any vomiting, constipation, blood in stool, blood in vomit. Positive for abdominal pain, nausea, vomiting, diarrhea : Negative for any urinary frequency, dysuria, retention, blood in urine Muscle skeletal: Negative for any neck pain, back pain Neurological: Negative for any headache, syncope, dizziness Skin: Negative for any rashes, itching, abrasions, lacerations Psychiatric: Negative for any depression, anxiety, stress, suicidal ideation, homicidal ideation Hematologic: Negative for any excessive bruising, easy bleeding EXAM <NATIVIDAD Kaur - Last Filed: 02/15/24 18:38> Physical Exam Narrative Exam Narrative: Vital signs reviewed. HEET: Head normocephalic atraumatic, TMs clear bilaterally. Posterior pharynx is clear, dry mucous membranes. Nares clear bilaterally. Neck: Supple with no lymphadenopathy or tenderness. No signs of meningismus. Cardiac: Regular rate and rhythm no murmurs gallops or rubs, equal peripheral pulses bilaterally. Respiratory: Lungs clear to auscultation bilaterally. No chest tenderness. Abdomen: Soft, nontender, nondistended. No abdominal bruit or pulsatile masses. No hepatosplenomegaly Extremities: No peripheral edema, no signs of gross trauma or deformity. Active full range of motion of all extremities. Neuro: Cranial nerves II through XII intact, no focal neurological deficits. Skin: Clean dry and intact with no rash, purpura, petechiae, vesicles or pustules. Backs/flank: No CVA tenderness, no midline spinal tenderness, no deformity. Psych: Normal mood and affect. No SI, HI or acute psychosis. Const Vital Signs: 02/15/24 14:19 02/15/24 14:22 02/15/24 14:22 Temperature 97.4 F L 97.4 F L Temperature Source Temporal Oral Pulse Rate 113 H 113 H Respiratory Rate 21 H 21 H Respiratory Effort Normal Non-Labored Respiratory Pattern Normal Blood Pressure 115/65 115/65 Blood Pressure Mean 81 81 Pulse Ox 99 99 Oxygen Delivery Method Room Air Room Air 02/15/24 15:22 02/15/24 16:00 02/15/24 16:19 Temperature 98.6 F 98.3 F Temperature Source Oral Oral Pulse Rate 98 96 98 Respiratory Rate 15 16 16 Respiratory Effort Respiratory Pattern Blood Pressure 107/66 117/71 117/71 Blood Pressure Mean 79 86 86 Pulse Ox 97 98 99 Oxygen Delivery Method Room Air Room Air Room Air 02/15/24 17:00 02/15/24 18:00 Temperature 98 F 97.6 F L Temperature Source Oral Oral Pulse Rate 95 99 Respiratory Rate 16 18 Respiratory Effort Respiratory Pattern Blood Pressure 95/64 124/73 H Blood Pressure Mean 74 90 Pulse Ox 95 99 Oxygen Delivery Method Room Air Room Air <Dr. Alin Tran MD - Last Filed: 02/15/24 17:49> Physical Exam Const Vital Signs: 02/15/24 14:19 02/15/24 14:22 02/15/24 14:22 Temperature 97.4 F L 97.4 F L Temperature Source Temporal Oral Pulse Rate 113 H 113 H Respiratory Rate 21 H 21 H Respiratory Effort Normal Non-Labored Respiratory Pattern Normal Blood Pressure 115/65 115/65 Blood Pressure Mean 81 81 Pulse Ox 99 99 Oxygen Delivery Method Room Air Room Air 02/15/24 15:22 02/15/24 16:00 02/15/24 16:19 Temperature 98.6 F 98.3 F Temperature Source Oral Oral Pulse Rate 98 96 98 Respiratory Rate 15 16 16 Respiratory Effort Respiratory Pattern Blood Pressure 107/66 117/71 117/71 Blood Pressure Mean 79 86 86 Pulse Ox 97 98 99 Oxygen Delivery Method Room Air Room Air Room Air 02/15/24 17:00 02/15/24 18:00 Temperature 98 F 97.6 F L Temperature Source Oral Oral Pulse Rate 95 99 Respiratory Rate 16 18 Respiratory Effort Respiratory Pattern Blood Pressure 95/64 124/73 H Blood Pressure Mean 74 90 Pulse Ox 95 99 Oxygen Delivery Method Room Air Room Air MDM <NATIVIDAD Kaur - Last Filed: 02/15/24 18:38> [facility] Lab Data Labs: Laboratory Results - last 24 hr 02/15/24 02/15/24 15:20 16:15 WBC 1.2 L* RBC 2.60 L Hgb 7.2 L Hct 22.3 L MCV 85.8 MCH 27.7 MCHC 32.3 RDW Std Deviation 55.8 H RDW Coeff of Carolyn 17.9 H Plt Count 197 MPV 9.9 Immature Gran % (Auto) 3.300 H Neut % (Auto) 44.6 L Lymph % (Auto) 30.1 [place] % (Auto) 17.1 H Eos % (Auto) 3.3 Baso % (Auto) 1.6 H Absolute Neuts (auto) 0.6 L Absolute Lymphs (auto) 0.37 L Nucleated RBC % 0 Differential Comment SCANNED Diff Path Review May foll Sodium 134 L Potassium 3.2 L Chloride 103 Carbon Dioxide 22.0 Anion Gap 9 BUN 22 H Creatinine 0.92 Estim Creat Clear Calc 73.22 Est GFR (MDRD) Af Amer 102 Est GFR (MDRD) Non-Af 84 BUN/Creatinine Ratio 24.0 H Glucose 123 H Calcium 8.2 L Total Bilirubin 1.30 H AST 9 L ALT 15 L Alkaline Phosphatase 114 Total Protein 6.1 L Albumin 2.6 L Globulin 3.5 Albumin/Globulin Ratio 0.7 L Lipase 26 Urine Color Yellow Urine Clarity Clear Urine pH 6.0 Ur Specific [place] 1.020 Urine Protein 30 H Urine Glucose (UA) Normal Urine Ketones Negative Urine Occult Blood Negative Urine Nitrite Negative Urine Bilirubin Negative Urine Urobilinogen Normal Ur Leukocyte Esterase Negative Urine RBC 0 SEEN Urine WBC 0 SEEN Ur Squamous Epith Cells 0 SEEN Urine Bacteria 0 SEEN Urine Mucus 0 SEEN Treatment and Re-Evaluation :: Differential diagnosis includes however is not limited to: Sequelae from colon cancer, sequelae from chemotherapy, gastroenteritis, dehydration, acute kidney injury, electrolyte abnormality. Patient appears generally well, patient appears nontoxic, vital signs are stable, patient presents to the emergency department for abdominal pain, nausea, vomiting, diarrhea post chemotherapy for colon cancer. Patient will receive some basic laboratory values, patient did receive IV fluids, Zofran and morphine. I did speak with the patient regarding his CT scan however patient had 1 on 02/09/2024 which was only 7 days ago, this did show the colon cancer however no acute change. Patient will be reevaluated. On reevaluation, the patient was feeling much better, patient was able to ambulate to the bathroom and felt much better. Patient's CBC did show a leukopenia with a white blood count of 1.2, this is secondary to the patient being on chemotherapy. Patient does show anemia with a hemoglobin of 7.2, this is lower than normal for the patient. On 02/09/2024, the patient's hemoglobin is 8.6, this is greater than 1 g lower. Patient's chemistries show glucose of 123, patient's creatinine was normal at 0.92. Bilirubin is 1.3. Secondary to patient feeling better, we did reach out to oncology. At this time, the plan will be to give the patient 1 unit of packed red blood cells, after this the patient be discharged home. Patient was typed and screened and will be started on blood. Patient will follow-up outpatient. <Dr. Alin Tran MD - Last Filed: 02/15/24 17:49> [facility] Narrative Medical decision making narrative: I have personally performed a face to face assessment of the patient and have reviewed the HERIBERTO Note. I performed a substantive portion of the visit including all aspects of the following. My pierson findings include: History is 83-year-old male history of colon cancer that is terminal. Currently on chemotherapy. CC just so weak. He was seen in the emergency department about a week or so ago. States he been having diarrhea. No black or bloody stools. He also has a history of A-fib for which he is on Eliquis. He denies any fever. He has had anemia before but is never needed a blood transfusion. Exam is [well-appearing 83-year-old male. He is very pale. Initial vital signs are stable. He is tachycardic in A-fib. He is afebrile. His pulse ox is 99% on room air no hypoxia. HEENT exam moist mucous membranes. Pale. Pupils round react to light. Neck nontender no lymphadenopathy. No JVD. Lungs clear to auscultation bilaterally. Heart A-fib rate about 105 no murmur. Chest wall and ribs nontender. Abdomen soft nontender. Moving all 4 extremities. Calves are nontender without edema or cords. He is pale. Neurologically is awake alert no focal motor deficits. He has a Mediport in his right chest. There is no redness or warmth.] Medical Decision Making [83-year-old male Colon CA that is terminal. Currently on chemotherapy. States he just feels generally weak. This could be from dehydration and diarrhea. Clinically looks anemic. He may need a blood transfusion. He also has A-fib.. Other additions or changes: [None] Lab Data Attestation: I reviewed the patient's lab results. Lab results narrative: CBC shows white count 1.2. H&H 7.2 and 22.3 which is down from his prior hemoglobins which are typically between 9 and 10. Platelets 197. Glucose 123. Liver enzymes unremarkable. UA negative. Labs: Laboratory Results - last 24 hr 02/15/24 02/15/24 15:20 16:15 WBC 1.2 L* RBC 2.60 L Hgb 7.2 L Hct 22.3 L MCV 85.8 MCH 27.7 MCHC 32.3 RDW Std Deviation 55.8 H RDW Coeff of Carolyn 17.9 H Plt Count 197 MPV 9.9 Immature Gran % (Auto) 3.300 H Neut % (Auto) 44.6 L Lymph % (Auto) 30.1 [place] % (Auto) 17.1 H Eos % (Auto) 3.3 Baso % (Auto) 1.6 H Absolute Neuts (auto) 0.6 L Absolute Lymphs (auto) 0.37 L Nucleated RBC % 0 Differential Comment SCANNED Diff Path Review May foll Sodium 134 L Potassium 3.2 L Chloride 103 Carbon Dioxide 22.0 Anion Gap 9 BUN 22 H Creatinine 0.92 Estim Creat Clear Calc 73.22 Est GFR (MDRD) Af Amer 102 Est GFR (MDRD) Non-Af 84 BUN/Creatinine Ratio 24.0 H Glucose 123 H Calcium 8.2 L Total Bilirubin 1.30 H AST 9 L ALT 15 L Alkaline Phosphatase 114 Total Protein 6.1 L Albumin 2.6 L Globulin 3.5 Albumin/Globulin Ratio 0.7 L Lipase 26 Urine Color Yellow Urine Clarity Clear Urine pH 6.0 Ur Specific [place] 1.020 Urine Protein 30 H Urine Glucose (UA) Normal Urine Ketones Negative Urine Occult Blood Negative Urine Nitrite Negative Urine Bilirubin Negative Urine Urobilinogen Normal Ur Leukocyte Esterase Negative Urine RBC 0 SEEN Urine WBC 0 SEEN Ur Squamous Epith Cells 0 SEEN Urine Bacteria 0 SEEN Urine Mucus 0 SEEN Discharge Plan Triage Chief Complaint: General Illness ED Midlevel Provider: Luciano Nielsen ED Provider: Alin Tran Dx/Rx/DC Orders Clinical Impression: Acute dehydration, Acute on chronic anemia, Colon cancer, Generalized weakness, Chronic anticoagulation, Diarrhea, History of atrial fibrillation Instructions: Anemia, Dehydration Prescriptions: No Action lisinopril 5 mg tablet 5 mg PO DAILY Fluad Quad (65y up)(PF) 60 mcg (15 mcg x 4)/0.5 mL syringe 60 mcg IM ONCE Qty: 0.5 0RF ascorbate calcium (vitamin C) 500 mg tablet 500 mg PO DAILY metoprolol tartrate 50 mg tablet 50 mg PO BID Qty: 180 3RF Eliquis 5 mg tablet 5 mg PO BID Qty: 180 3RF promethazine 25 mg tablet 25 mg PO Q6H PRN (Reason: nausea and vomiting) 3 Days Qty: 12 0RF promethazine 25 mg suppository 25 mg IL Q6H PRN (Reason: nausea and vomiting) 3 Days Qty: 12 0RF Primary Care Provider: Luciano Jaimes Referrals: Luciano Jaimes MD [Primary Care Provider] - Otis Sher MD [Med Staff - Active Staff] - Activity Restrictions/Additional Instructions: You received 1 unit of packed red blood cells today, you need to follow-up outpatient. Maintain hydration. Disposition Disposition: Home, Self Care
[2024-02-15] MEDS: Morphine 4 MG/ML Syringe IV (15:28)
[2024-02-15] MEDS: 0.9% Normal Saline (1000mL) 1,000 ML 1000 ML IV (15:28)
[2024-02-15] MEDS: Ondansetron 4 MG/2 ML Vial IV (15:28)
[2024-02-15 15:33] LABS: Absolute Lymphocyte Count 0.37 X10^3/uL (0.83-4.51); Absolute Neutrophil Count 0.6 X10^3/uL (2.0-7.7); Basophil# 0.02 X10^3/uL; Basophil% 1.6 % (0-1); Eosinophil# 0.04 X10^3/uL; Eosinophils% 3.3 % (0-5); Hematocrit 22.3 % (40-54); Hemoglobin 7.2 g/dL (13.0-16.5); Lymphocyte # 0.37 X10^3/ul (0.83-4.51); Lymphocyte % 30.1 % (19-41); Mean Corp Hgb Conc 32.3 g/dL (32-36); Mean Corpuscular Hgb 27.7 pg (27.0-32.0); Mean Corpuscular Volume 85.8 fL (80-94); Mean Platelet Vol. 9.9 fl (6.2-12.0); Monocyte# 0.21 X10^3/uL; Monocyte% 17.1 % (0-10); NRBC Flagged by Analyzer 0 % (0-5); Neutrophil # 0.55 X10^3/uL (2.7-7.7); Neutrophil % 44.6 % (47-70); POSITIVE COUNT YES; POSITIVE DIFFERENTIAL YES; POSITIVE MORPHOLOGY YES; Platelet Count 197 K/mm3 (150-450); RBC Distribution Width CV 17.9 % (11.6-14.6); RBC Distribution Width SD 55.8 fl (35.1-43.9)
[2024-02-15 15:47] LABS: Differential Indicated SCAN CRITERIA MET; White Blood Count 1.2 K/mm3 (4.4-11.0)
[2024-02-15 15:57] LABS: ALB/GLOB Ratio 0.7 RATIO (0.9-2.4); AST(SGOT) 9 U/L (15-37); Alanine Aminotransfer ALT/SGPT 15 U/L (16-61); Albumin, Serum 2.6 g/dL (3.2-5.0); Alkaline Phosphatase 114 U/L (45-117); Anion Gap 9 (5-15); BUN 22 mg/dL (7-18); Calcium,Total 8.2 mg/dL (8.5-10.1); Chloride 103 mmol/L (98-107); Creatinine, Serum 0.92 mg/dL (0.70-1.30); EST Glomerular Filtration Rate 84 mL/min (>60); Est Glom Filt Rate - Afr Amer 102 mL/min (>60); Estimated Creatinine Clearance 73.22 ml/min; Globulin 3.5 g/dL (2.2-4.2); Glucose 123 mg/dL (74-106); Lipase 26 U/L (13-75); Potassium 3.2 mmol/L (3.5-5.1); Protein, Total 6.1 g/dL (6.4-8.2); Sodium Level 134 mmol/L (136-145)
[2024-02-15 16:12] LABS: Differential Comment SCANNED
[2024-02-15 16:19] LABS: Bacteria 0 SEEN /hpf (None Seen); Mucous, Urine 0 SEEN /hpf (<or=2+); Red Blood Cells-Urine 0 SEEN /hpf (0-5); Squamous Epithelial Cells - UA 0 SEEN /hpf (0-5); White Blood Cells 0 SEEN /hpf (0-5)
[2024-02-15 16:27] LABS: Glucose, Dipstick Normal (Normal); Ketone-Dipstick Negative (Negative); Leukocyte Esterase-Dipstick Negative /ul (Negative); Nitrite-Dipstick Negative (Negative); Occult Blood-Urine Negative /ul (Negative); Protein-Dipstick 30 mg/dl (Negative); Urine Bilirubin Dipstick Negative (Negative); Urine Urobilinogen Normal (Normal)
[2024-02-15 16:39] LABS: Color, Urine Yellow (Yellow); Urine Clarity Clear (Clear)
[2024-02-16 00:24] VITALS: BP 102/77; PULSE 94; RESP 18; TEMP 37.1; O2SAT 94
[2024-02-18 13:23] LABS: Pathologist Review Reviewed
== END 2024-02-16 00:26 | disposition home or self-care (01) ==
PROVIDERS: Nurse Practitioner; Emergency Provider Emergency Medicine; PCP Family Medicine; Visit Provider Emergency Medicine
DX: E86.0 Dehydration (principal); C18.9 Malignant neoplasm of colon, unspecified; I48.91 Unspecified atrial fibrillation; D64.9 Anemia, unspecified; R53.1 Weakness; R19.7 Diarrhea, unspecified; Z79.01 Long term (current) use of anticoagulants
CPT/HCPCS: 36430; 36591; 80053; 81001; 83690; 85025; 86850; 86900; 86901; 86920; 86922; 96361; 96374; 96375; 99285; J7030; J7040; P9016; P9612; A4216; J2405